=== PATIENT | male | born 1935 | race Caucasian/White ===

== ENCOUNTER 2019-05-22 05:53 | Inpatient (IN) | payer MEDICARE ==
[~2019-05-22] VITALS: Ht 185.4 cm; Wt 90.8 kg
[2019-05-22] MEDS ORDERED: MULT-238 PO (07:07)
[2019-05-22] MEDS ORDERED: RISP0.5T24 PO (07:07)
[2019-05-22] MEDS ORDERED: ACET325T9 PO (07:07)
[2019-05-22] MEDS ORDERED: INSU100V31 SQ (07:07)
[2019-05-22] MEDS ORDERED: TRAZ-120 PO (07:07)
[2019-05-22] MEDS ORDERED: LEVO25TA4 PO (07:07)
[2019-05-22] MEDS ORDERED: OXYM30MI NS (07:07)
[2019-05-22] MEDS ORDERED: ESCITALOPRAM OX10 MG PO (07:07)
[2019-05-22] MEDS ORDERED: CARB-110 PO (07:07)
[2019-05-22] MEDS ORDERED: FURO-68 PO (07:07)
[2019-05-22] MEDS ORDERED: POTA20TA83 PO (07:07)
[2019-05-22] MEDS ORDERED: FAMO-63 PO (07:07)
[2019-05-22] MEDS ORDERED: THIA100T57 PO (07:07)
[2019-05-22] MEDS ORDERED: GABA-586 PO (07:07)
[2019-05-22] MEDS ORDERED: MEDR150D3 IM (07:08)
[2019-05-22] MEDS ORDERED: INSU100I13 SQ ×2 (07:08→12:30)
[2019-05-22] MEDS ORDERED: DONE5TAB56 PO (07:08)
[2019-05-22] MEDS ORDERED: OXYM15MI4 NS (07:08)
[2019-05-22] MEDS ORDERED: DIVA250T PO (07:08)
[2019-05-22] MEDS ORDERED: MAG HYDROX/AL HYDROX/SIMETH 30 ML ORAL.SUSP PO PRN (11:15)
[2019-05-22] MEDS ORDERED: MAGNESIUM HYDROXIDE 2,400 MG/30 ML ORAL.SUSP. PO PRN (11:15)
[2019-05-22] MEDS ORDERED: METHYL SALICYLATE/MENTHOL TOPICAL OINTMENT 57GM TUBE. TP PRN (11:15)
[2019-05-22 11:27] VITALS: BP 135/77
[2019-05-22 11:37] LABS: BASO # 0.1 x10^3/uL (0.0-0.2); BASO % 1 % (0-3); EOS # 0.1 x10^3/uL (0.0-0.7); EOS % 2 % (0-3); HEMATOCRIT 22.4 % (39.0-53.0); HEMOGLOBIN 7.5 g/dL (13.0-17.5); LYMPH # 1.1 x10^3/uL (1.0-4.8); LYMPH % 19 % (24-48); MEAN CORPUSCULAR HEMOGLOBIN 35 pg (25-35); MEAN CORPUSCULAR HGB CONC 34 g/dL (31-37); MEAN CORPUSCULAR VOLUME 105 fL (79-100); MONO # 0.6 x10^3/uL (0.0-1.1); MONO % 10 % (0-9); NEUT % 69 % (31-73); PLATELET COUNT 270 x10^3/uL (140-400); RED BLOOD COUNT 2.14 x10^6/uL (4.30-5.70); RED CELL DISTRIBUTION WIDTH 13.9 % (11.5-14.5); WHITE BLOOD COUNT 5.9 x10^3/uL (4.0-11.0)
[2019-05-22 11:53] LABS: ALBUMIN 2.8 g/dL (3.4-5.0); ALBUMIN/GLOBULIN RATIO 0.8 (1.0-1.7); ALK PHOS 69 U/L (46-116); ALT (SGPT) 10 U/L (16-63); ANION GAP 10 (6-14); AST (SGOT) 12 U/L (15-37); BLOOD UREA NITROGEN 29 mg/dL (8-26); BUN/CREATININE RATIO 21 (6-20); CALCIUM 9.1 mg/dL (8.5-10.1); CARBON DIOXIDE 23 mmol/L (21-32); CHLORIDE 106 mmol/L (98-107); CREATININE 1.4 mg/dL (0.7-1.3); GFR 48.4; GLUCOSE 230 mg/dL (70-99); MAGNESIUM 1.9 mg/dL (1.8-2.4); POTASSIUM 4.7 mmol/L (3.5-5.1); SODIUM 139 mmol/L (136-145); TOTAL BILIRUBIN 0.2 mg/dL (0.2-1.0); TOTAL PROTEIN 6.2 g/dL (6.4-8.2)
[2019-05-22 11:54] LABS: VAL ACID 25 mcg/mL (50-100)
[2019-05-22] MEDS ORDERED: ACETAMINOPHEN 325 MG TABLET PO PRN (12:15)
[2019-05-22] MEDS ORDERED: OXYMETAZOLINE 0.05% NASAL SPRAY 30ML BOTTLE. NS PRN ×2 (12:30→12:45)
[2019-05-22] MEDS ORDERED: DIVA250T4 PO (12:30)
[2019-05-22] MEDS: CARBIDOPA/LEVODOPA 25/250MG TABLET PO SCH ×3 (13:40→19:56)
[2019-05-22] MEDS: DIVALPROEX SODIUM 250 MG TABLET.DR. PO SCH ×2 (13:40→19:56)
[2019-05-22] MEDS: GABAPENTIN 300 MG CAPSULE. PO SCH ×2 (13:40→19:56)
[2019-05-22] MEDS ORDERED: OXYMETAZOLINE HCL NS SCH (14:00)
[2019-05-22] MEDS ORDERED: DIVALPROEX SODIUM 250 MG TABLET.DR. PO SCH (14:00)
[2019-05-22] MEDS ORDERED: INSULIN GLARGINE HUM REC ANLOG 25 UNIT SQ SCH ×2 (16:30→21:00)
[2019-05-22] MEDS ORDERED: NON FORMULARY ITEM (Insulin Aspart (Novolog) 10 UNIT) SQ SCH (16:30)
[2019-05-22 16:41] VITALS: BP 136/74
[2019-05-22 17:13] LABS: THYROID STIM HORMONE (TSH) 2.591 uIU/mL (0.358-3.740)
[2019-05-22] MEDS: INSULIN LISPRO 300 UNITS/3 ML VIAL. SQ SCH (17:31)
[2019-05-22] MEDS: traZODone 50 MG TABLET. PO SCH (19:55)
[2019-05-22] MEDS: risperiDONE 0.25 MG TABLET. PO SCH (19:55)
[2019-05-22] MEDS: POTASSIUM CHLORIDE 20 MEQ TABLET.ER. PO SCH (19:56)
[2019-05-22] MEDS: INSULIN GLARGINE SYRINGE. SQ SCH (19:58)
--- NOTE | 2019-05-22 21:48 | PDOC ---
Exam Note: Kirby Note: Please also refer to the separate dictated note~for this date of service dictated separately. Discussed the patient with Nursing staff reviewed the chart.~Reviewed interim history and current functioning. Reviewed vital signs,~Labs/ Radiology~and current medications noted below. Continue current treatment with the changes noted in the dictated addendum note Assessment: Vital Signs/I&O: Vital Signs Date Time Temp Pulse Resp B/P (MAP) Pulse Ox O2 Delivery O2 Flow Rate FiO2 05/22/19 16:41 97.8 82 16 136/74 (94) 97 05/22/19 11:27 Room Air Labs: Laboratory Tests Test 05/22/19 11:28 05/22/19 12:07 05/22/19 19:07 White Blood Count 5.9 x10^3/uL (4.0-11.0) Red Blood Count 2.14 x10^6/uL (4.30-5.70) L Hemoglobin 7.5 g/dL (13.0-17.5) L Hematocrit 22.4 % (39.0-53.0) L Mean Corpuscular Volume 105 fL (79-100) H Mean Corpuscular Hemoglobin 35 pg (25-35) Mean Corpuscular Hemoglobin Concent 34 g/dL (31-37) Red Cell Distribution Width 13.9 % (11.5-14.5) Platelet Count 270 x10^3/uL (140-400) Neutrophils (%) (Auto) 69 % (31-73) Lymphocytes (%) (Auto) 19 % (24-48) L Monocytes (%) (Auto) 10 % (0-9) H Eosinophils (%) (Auto) 2 % (0-3) Basophils (%) (Auto) 1 % (0-3) Neutrophils # (Auto) 4.0 x10^3uL (1.8-7.7) Lymphocytes # (Auto) 1.1 x10^3/uL (1.0-4.8) Monocytes # (Auto) 0.6 x10^3/uL (0.0-1.1) Eosinophils # (Auto) 0.1 x10^3/uL (0.0-0.7) Basophils # (Auto) 0.1 x10^3/uL (0.0-0.2) Sodium Level 139 mmol/L (136-145) Potassium Level 4.7 mmol/L (3.5-5.1) Chloride Level 106 mmol/L (98-107) Carbon Dioxide Level 23 mmol/L (21-32) Anion Gap 10 (6-14) Blood Urea Nitrogen 29 mg/dL (8-26) H Creatinine 1.4 mg/dL (0.7-1.3) H Estimated GFR (Cockcroft-Gault) 48.4 BUN/Creatinine Ratio 21 (6-20) H Glucose Level 230 mg/dL (70-99) H Calcium Level 9.1 mg/dL (8.5-10.1) Magnesium Level 1.9 mg/dL (1.8-2.4) Iron Level 81 ug/dL (65-175) Total Iron Binding Capacity 254 ug/dL (250-450) Iron Saturation 32 % (15-34) Total Bilirubin 0.2 mg/dL (0.2-1.0) Aspartate Amino Transferase (AST) 12 U/L (15-37) L Alanine Aminotransferase (ALT) 10 U/L (16-63) L Alkaline Phosphatase 69 U/L (46-116) Total Protein 6.2 g/dL (6.4-8.2) L Albumin 2.8 g/dL (3.4-5.0) L Albumin/Globulin Ratio 0.8 (1.0-1.7) L Triglycerides Level 166 mg/dL (0-150) H Cholesterol Level 213 mg/dL (0-200) H LDL Cholesterol, Calculated 145 mg/dL (0-100) H VLDL Cholesterol, Calculated 33 mg/dL (0-40) Non-HDL Cholesterol Calculated 178 mg/dL (0-129) H HDL Cholesterol 35 mg/dL (40-60) L Cholesterol/HDL Ratio 6.0 Vitamin B12 Level 960 pg/mL (247-911) H 25-Hydroxy Vitamin D Total 41.2 ng/mL (30-100) Thyroid Stimulating Hormone (TSH) 2.591 uIU/mL (0.358-3.740) Valproic Acid Level 25 mcg/mL (50-100) L Valproic Acid Last Dose Date 05/22/19 Valproic Acid Last Dose Time 0900 Treponema pallidum Antibody Nonreactive (Nonreactive) Glucose (Fingerstick) 202 mg/dL (70-99) H 205 mg/dL (70-99) H Current Medications: Meds: Current Medications Medications (Trade) Dose Ordered Sig/Miriam Route PRN Reason Start Time Stop Time Status Last Admin Dose Admin Carbidopa/Levodopa (Sinemet 25/250) 1 tab QID PO 05/22/19 13:00 05/22/19 19:56 Divalproex Sodium (Depakote) 250 mg TID PO 05/22/19 14:00 05/22/19 19:56 Gabapentin (Neurontin) 300 mg TID PO 05/22/19 14:00 05/22/19 19:56 Risperidone (RisperDAL) 0.25 mg BID PO 05/22/19 21:00 05/22/19 19:55 Trazodone HCl (Desyrel) 25 mg HS PO 05/22/19 21:00 05/22/19 19:55 Potassium Chloride (Klor-Con) 20 meq BID PO 05/22/19 21:00 05/22/19 19:56 Insulin Glargine (Lantus Syringe) 25 unit BID SQ 05/22/19 21:00 05/22/19 19:58 Insulin Human Lispro (HumaLOG) 10 units TIDWMEALS SQ 05/22/19 17:00 05/22/19 17:31 I have reviewed the current psychotropics carefully including drug interactions. Risk benefit ratio favors no change other than as noted in my dictated progress note. Diagnosis: Problems: (1) Major neurocognitive disorder due to Alzheimer's disease, probable, with behavioral disturbance (2) Anxiety disorder (3) Dementia in Alzheimer's disease with delusions (4) Dementia in Alzheimer's disease with depression (5) Dementia, vascular, with delusions (6) Dementia, vascular, with depression (7) Impulse control disorder CHRISTIAN ELLIOTT MD May 22, 2019 21:48
[2019-05-23 00:06] LABS: THYROXINE 5.7 ug/dL (4.5-12.0)
[2019-05-23 01:07] LABS: HEMOGLOBIN A1C 7.4 % (4.8-5.6)
[2019-05-23 05:05] VITALS: BP 146/76
[2019-05-23] MEDS: LEVOTHYROXINE 25 MCG TABLET. PO SCH (05:15)
--- NOTE | 2019-05-23 06:42 | EKG ---
[address] [address] Test Date: 2019-05-22 Test Time: 04:40:24 Pat Name: MELISSA HOOPER Department: Room: [address] [place] [address] Gender: M School Nurse: : 1935 Requested By: CHRISTIAN ELLIOTT Order Number: [id number] Reading MD: Measurements Intervals [place] Rate: P: NC: QRS: QRSD: T: QT: QTc: Interpretive Statements
[2019-05-23 07:27] LABS: HEMATOCRIT 22.9 % (39.0-53.0); HEMOGLOBIN 7.7 g/dL (13.0-17.5)
[2019-05-23] MEDS ORDERED: LEVOTHYROXINE 25 MCG TABLET. PO SCH (07:30)
[2019-05-23] MEDS: INSULIN LISPRO 300 UNITS/3 ML VIAL. SQ SCH ×3 (08:00→17:32)
[2019-05-23] MEDS: MULTIVITAMIN with MINERAL TABLET. PO SCH (08:01)
[2019-05-23] MEDS: FUROSEMIDE 40 MG TABLET PO SCH (08:01)
[2019-05-23] MEDS: CARBIDOPA/LEVODOPA 25/250MG TABLET PO SCH ×4 (08:01→20:34)
[2019-05-23] MEDS: GABAPENTIN 300 MG CAPSULE. PO SCH ×3 (08:01→20:33)
[2019-05-23] MEDS: CITALOPRAM 20 MG TABLET. PO SCH (08:01)
[2019-05-23] MEDS: FAMOTIDINE 20 MG TABLET PO SCH (08:01)
[2019-05-23] MEDS: THIAMINE 100 MG TABLET. PO SCH (08:01)
[2019-05-23] MEDS: DIVALPROEX SODIUM 250 MG TABLET.DR. PO SCH ×3 (08:02→20:33)
[2019-05-23] MEDS: POTASSIUM CHLORIDE 20 MEQ TABLET.ER. PO SCH ×2 (08:02→20:34)
[2019-05-23] MEDS: risperiDONE 0.25 MG TABLET. PO SCH ×2 (08:02→20:33)
[2019-05-23] MEDS: DONEPEZIL HCL 5 MG TABLET. PO SCH (08:02)
[2019-05-23] MEDS ORDERED: NON FORMULARY ITEM (Escitalopram Oxalate 10 MG) PO SCH (09:00)
[2019-05-23] MEDS: INSULIN GLARGINE SYRINGE. SQ SCH ×2 (09:00→21:10)
[2019-05-23 15:50] VITALS: BP 133/77
--- NOTE | 2019-05-23 18:49 | HP ---
ADMIT DATE: 05/22/2019 PSYCHIATRIC ADMISSION HISTORY/EVALUATION This late entry 05/22/2019 covers elements not covered in my initial note. IDENTIFYING DATA: The patient is an 83-year-old male referred to us from [facility] by his primary care physician, Dr. Donnell Chandra on account of worsening confusion, being combative towards the assisted living staff, increased aggression towards peers. He smacked the beacon out of peer's hand, agitated, restless, grabbing female staff inappropriately. Behaviors have been unmanageable, disruptive and failed psychiatric interventions at the facility and he has appeared more confused, resulting in this referral for inpatient stabilization. CHIEF COMPLAINT: "I don't know." The patient answered after I asked him when he was admitted, even though I knew he was admitted earlier in the day. He appears quite confused. HISTORY OF PRESENT ILLNESS: The patient has been residing at the above facility for some time. Recently, he has been increasingly combative towards staff with increased aggression towards peers. He smacked beacon out of a peer's hand, agitated, restless, grabbing female staff inappropriately. He has had sleep and appetite changes and a prior inpatient psychiatric hospitalization at [facility] and has had tele-psychiatrist visits which have been scheduled for him as well. The patient has failed all of this and a prior inpatient psychiatric hospitalization at [place] in 2017. He has been seeing the nurse practitioner as well for psychotropic medication management. Behaviors have been worsening for about 2 weeks and referred for inpatient psychiatric stabilization. PAST PSYCHIATRIC HISTORY: As above. MEDICAL HISTORY: Positive for hypertension, past history of alcohol abuse, type 2 diabetes mellitus, history of prostatic cancer, history of acute pancreatitis, hypothyroidism, Parkinson's disease. Accu-Cheks before meals and at bedtime. ALLERGIES: ATORVASTATIN, ROSUVASTATIN. DIET: Regular, diabetic, takes medications whole. Ambulates up ad lloyd. UA 05/21/2019, negative at facility. CODE STATUS: Full code, but DPOA wants it changed to DNR. We will defer to Dr. Coley. CURRENT PSYCHOTROPICS: Trazodone 25 mg at bedtime, Lexapro 10 mg a day, Neurontin 300 mg t.i.d. p.r.n., Risperdal 0.25 mg twice a day, Sinemet 250/25 q.i.d. for Parkinson's disease, Aricept 5 mg a day, Depo-Provera 150 mg per mL 1 mL every 2 weeks, next due 06/05/2019; Jadyn JARRELL 250 mg t.i.d., level awaited. FAMILY HISTORY: Noncontributory. SOCIAL HISTORY: Past history of alcohol abuse and history of pancreatitis associated with this. REACTION TO HOSPITALIZATION: The patient is somewhat oblivious to this. ASSETS: Supportive family and placement at the above facility. REVIEW OF SYSTEMS: No CV, , pulmonary, eye system symptoms on review. MENTAL STATUS EXAMINATION: The patient was seen individually evening of 05/22/2019. He is oriented to himself. Insight, judgment, recent and remote memory, attention, concentration, fund of knowledge poor, consistent with his diagnosis. IMPRESSION: Major neurocognitive disorder, multifactorial secondary to Alzheimer's vascular, possibly alcohol with delusion, depression, behavioral disturbance; anxiety disorder, unspecified; impulse control disorder, unspecified. Rest as above. PLAN: Admit to Geropsychiatry Unit at [facility]. I will see the patient daily individually from a psychiatric standpoint. Medical followup by Dr. Coley. Continue the patient on his current psychotropics. Get past psychiatric records. Adjust as clinically indicated after we get the next valproic acid level. Estimated length of stay 10-12 days. Return back to skilled nursing when stable. MAN Jorge Luis ELLIOTT MD DR: DALTON/skip JOB#: [id number] / [id number]
[2019-05-23] MEDS: traZODone 50 MG TABLET. PO SCH (20:34)
--- NOTE | 2019-05-23 21:35 | PDOC ---
Exam Note: Kirby Note: Please also refer to the separate dictated note~for this date of service dictated separately.~Patient seen individually. Discussed the patient with Nursing staff reviewed the chart.~Reviewed interim history and current functioning. Reviewed vital signs,~Labs/ Radiology~and current medications noted below. Continue current treatment with the changes noted in the dictated addendum note Assessment: Vital Signs/I&O: Vital Signs Date Time Temp Pulse Resp B/P (MAP) Pulse Ox O2 Delivery O2 Flow Rate FiO2 05/23/19 15:50 98.1 80 16 133/77 (95) 96 05/23/19 05:05 Room Air I & O 05/22/19 05/22/19 05/23/19 15:00 23:00 07:00 Intake Total 240 ml 480 ml 120 ml Balance 240 ml 480 ml 120 ml Labs: Laboratory Tests Test 05/23/19 07:01 05/23/19 08:06 05/23/19 11:58 05/23/19 16:57 Hemoglobin 7.7 g/dL (13.0-17.5) L Hematocrit 22.9 % (39.0-53.0) L Glucose (Fingerstick) 112 mg/dL (70-99) H 177 mg/dL (70-99) H 184 mg/dL (70-99) H Test 05/23/19 19:18 Glucose (Fingerstick) 239 mg/dL (70-99) H Current Medications: Meds: Current Medications Medications (Trade) Dose Ordered Sig/Miriam Route PRN Reason Start Time Stop Time Status Last Admin Dose Admin Donepezil HCl (Aricept) 5 mg DAILY PO 05/23/19 09:00 05/23/19 08:02 Famotidine (Pepcid) 20 mg DAILY PO 05/23/19 09:00 05/23/19 08:01 Furosemide (Lasix) 40 mg DAILY PO 05/23/19 09:00 05/23/19 08:01 Multivitamins/ Calcium (Thera-M Plus) 1 tab DAILY PO 05/23/19 09:00 05/23/19 08:01 Thiamine HCl (Vitamin B-1) 100 mg DAILY PO 05/23/19 09:00 05/23/19 08:01 Citalopram Hydrobromide (CeleXA) 20 mg DAILY PO 05/23/19 09:00 05/23/19 08:01 Levothyroxine Sodium (Synthroid) 25 mcg DAILY06 PO 05/23/19 06:00 05/23/19 05:15 Divalproex Sodium (Depakote) 500 mg QHS PO 05/23/19 21:00 05/23/19 20:33 I have reviewed the current psychotropics carefully including drug interactions. Risk benefit ratio favors no change other than as noted in my dictated progress note. Diagnosis: Problems: (1) Major neurocognitive disorder due to Alzheimer's disease, probable, with behavioral disturbance (2) Anxiety disorder (3) Dementia in Alzheimer's disease with delusions (4) Dementia in Alzheimer's disease with depression (5) Dementia, vascular, with delusions (6) Dementia, vascular, with depression (7) Impulse control disorder CHRISTIAN ELLIOTT MD May 23, 2019 21:35
[2019-05-24] MEDS: LEVOTHYROXINE 25 MCG TABLET. PO SCH (06:00)
[2019-05-24] MEDS: INSULIN LISPRO 300 UNITS/3 ML VIAL. SQ SCH ×3 (08:00→17:23)
[2019-05-24] MEDS: risperiDONE 0.25 MG TABLET. PO SCH ×2 (09:00→20:13)
[2019-05-24] MEDS: FAMOTIDINE 20 MG TABLET PO SCH (09:00)
[2019-05-24] MEDS: FUROSEMIDE 40 MG TABLET PO SCH (09:00)
[2019-05-24] MEDS: MULTIVITAMIN with MINERAL TABLET. PO SCH (09:00)
[2019-05-24] MEDS: CARBIDOPA/LEVODOPA 25/250MG TABLET PO SCH ×4 (09:00→20:14)
[2019-05-24] MEDS: POTASSIUM CHLORIDE 20 MEQ TABLET.ER. PO SCH ×2 (09:00→20:14)
[2019-05-24] MEDS: DONEPEZIL HCL 5 MG TABLET. PO SCH (09:00)
[2019-05-24] MEDS: THIAMINE 100 MG TABLET. PO SCH (09:00)
[2019-05-24] MEDS: INSULIN GLARGINE SYRINGE. SQ SCH ×2 (09:00→20:15)
[2019-05-24] MEDS: GABAPENTIN 300 MG CAPSULE. PO SCH ×3 (09:00→20:13)
[2019-05-24] MEDS: CITALOPRAM 20 MG TABLET. PO SCH (09:00)
[2019-05-24] MEDS: DIVALPROEX SODIUM 250 MG TABLET.DR. PO SCH ×3 (09:00→20:13)
--- NOTE | 2019-05-24 09:05 | PN ---
DATE: 05/23/2019 PSYCHIATRIC PROGRESS NOTE This late entry May 22 covers elements not covered in my initial note. SUBJECTIVE: I met with the patient in the evening. Per nursing report, the patient slept 5-1/4 hours previous night. He remains confused. Reviewed his history. He has never been , has no children. Hemoglobin 7.1. Valproic acid level subtherapeutic at 25 on Depakote ER 250 t.i.d. REVIEW OF SYSTEMS: No CV, , pulmonary, eye system symptoms on review. MENTAL STATUS EXAM: Oriented to himself, at times situation. Speech moderate latency. Abstraction fair. Computation impaired. Language function intact. Mood and affect withdrawn. LABORATORY DATA: Reviewed. IMPRESSION: Major neurocognitive disorder, early Alzheimer's, vascular with delusion, depression, behavioral disturbance, rule out major neurocognitive disorder, Lewy body with delusion, behavioral disturbance; anxiety disorder, unspecified. Rest unchanged. PLAN: Increase Depakote ER to 250 twice a day, 500 at bedtime. Check CBC, CMP, valproic acid level in 3 days. Rest unchanged for now. MAN Jorge Luis ELLIOTT MD DR: DALTON/skip JOB#: [id number] / [id number]
--- NOTE | 2019-05-24 09:09 | CONS ---
DATE OF CONSULTATION: REASON FOR CONSULTATION: Medical management. HISTORY OF PRESENT ILLNESS: The patient at an 83-year-old male patient, a resident at [facility], who was admitted on account of being combative towards staff, increased aggression towards peers, snack taken out of peers' hands, agitated, restless, grabbing female staff inappropriately, all this in a background of major neurocognitive disorder, vascular Alzheimer with delusion, depression; anxiety disorder, unspecified; with impulse control disorder. Medically, the patient is known to have hypertension, alcohol abuse, type 2 diabetes, prostate cancer, history of acute pancreatitis, hypothyroidism and Parkinson's disease. PAST PSYCHIATRIC HISTORY: Significant for panic disorder; anxiety, unspecified; dementia, behavioral disorder and depression. PAST SURGICAL HISTORY: Unobtainable. SOCIAL HISTORY: He claims that he has never , has no children. Does not smoke, but drinks alcohol. ALLERGIES: HE IS ALLERGIC TO ATORVASTATIN AND ROSUVASTATIN CALCIUM. FAMILY HISTORY: Unobtainable. MEDICATIONS: He is currently on following medications: Aricept 5 mg daily, acetaminophen 650 mg every 6 hours, divalproex sodium 250 mg 3 times a day, gabapentin 300 mg 3 times a day, escitalopram oxalate 10 mg daily, trazodone 25 mg at bedtime, risperidone 0.25 mg twice a day, carbidopa/levodopa 25/250 one tablet 4 times a day, potassium chloride 20 mEq twice a day, furosemide 40 mg daily, oxymetazoline ____ 3 times a day, famotidine 20 mg daily, NovoLog 10 units subcutaneous 3 times a day, Lantus SoloSTAR 25 units subcutaneously twice a day, medroxyprogesterone acetate 150 mg intramuscular once every 2 weeks, levothyroxine sodium 25 mcg once a day, thiamine 100 mg once a day, multivitamin with mineral 1 tablet once a day. PHYSICAL EXAMINATION: GENERAL: When I examined him, he was sitting comfortably in his chair, in no apparent respiratory distress. He was somewhat pale, but no jaundice, cyanosis or thyromegaly. No jugular venous distention. No lower limb edema. VITAL SIGNS: His heart rate was 80, blood pressure was 133/77, temperature 98.1, respiratory rate was 16 and oxygen saturation was 96%. HEAD, EYES, EARS, NOSE AND THROAT: Showed normocephalic, atraumatic. NECK: Supple. HEART: Showed normal first and second heart sounds. No gallop or murmur. CHEST: Clear to auscultation. No crepitation or rhonchi. ABDOMEN: Distended, soft, nontender. NEUROLOGIC: He was awake, alert. There is no evidence of obvious lateralizing sign. He has pill rolling tremors in both upper extremities. He moves all extremities without difficulty. He ambulates with a walker. LABORATORY DATA: Showed a white cell count 5900, hemoglobin 7.5, hematocrit 22, MCV 105 and platelet count 270,000. His serum sodium was 139, potassium 4.7, chloride 106, bicarbonate 23, anion gap of 10, BUN 29, creatinine 1.4, estimated GFR was 48 mL per minute, his glucose 230, calcium was 9.1, magnesium was 1.9. Total bilirubin, AST, ALT, alkaline phosphatase were normal. Total protein was 6.2, albumin was 2.8. Serum triglyceride was 166, cholesterol 213, LDL cholesterol 145, HDL was 178 and ratio was 6. TSH was 2.59. His vitamin B12 was 960 picogram, 25-hydroxyvitamin D was high at 41, total T4 and total T3 are both normal. His hemoglobin A1c was 7.4%. Serum iron 81, TIBC was 254, and iron saturation was 32. Toxic screen showed valproic acid to be 25 and treponema pallidum antibody was nonreactive. IMPRESSION: In summary, this is an 83-year-old male patient, a resident at [facility], who was admitted on account of being combative towards staff, increased aggression towards peers, snack taken out of peers' hand, agitated, restless, grabbing female staff inappropriately, all this in a background of major neurocognitive disorder. Medically, he has multiple medical problems including hypertension, type 2 diabetes, hypothyroidism, Parkinson's disease. He has normochromic normocytic anemia with normal hematinics including vitamin B12 and iron stores indicating probably has some form of myelodysplastic syndrome. He has also chronic kidney disease with BUN of 29, creatinine 1.4. However, generally, he is stable. We will obviously monitor his H and H closely and if he drops his hemoglobin 7 or below 7, we will transfuse him. LAURITA CHRISTIAN MD DR: DESTINEY/skip JOB#: [id number] / [id number]
[2019-05-24 13:57] VITALS: BP 122/75
[2019-05-24 16:33] VITALS: BP 130/71
[2019-05-24] MEDS: traZODone 50 MG TABLET. PO SCH (20:13)
--- NOTE | 2019-05-24 21:40 | PN ---
DATE: 05/24/2019 SUBJECTIVE: The patient was seen today, met with the staff, chart reviewed, and covering for Dr. Wheeler. Staff reports that he has been staying in bed most of the time, but compliant with the treatment. Periods of agitation and confusion. Staff also reports no major behavior problems at this time. OBSERVATION: VITAL SIGNS: Temperature 97.4, blood pressure 122/75, pulse 85, respirations 22, O2 sat 99%. GENERAL: Slept about 5 hours last night. The patient's appetite is fair. LABORATORY DATA: The patient's lab reviewed. MEDICATIONS: The patient's current medications include Depo-Provera IM 150 mg q. 2 weeks, Depakote 250 mg b.i.d. and 500 mg at night, Celexa 20 mg daily, Aricept 5 mg daily, trazodone 25 mg at night, Risperdal 0.25 mg b.i.d. The patient is also on Sinemet 4 times a day. The patient is not having any major side effects. ASSESSMENT: Major neurocognitive disorder, multifactorial; also Alzheimer's with delusions and depression; anxiety disorder, generalized; and impulse control disorder, unspecified. PLAN: To continue with the current treatment plan. LENGTH OF STAY: 5 days. PEDRO PABLO REAVES MD DR: THUY/skip JOB#: [id number] / [id number]
[2019-05-25] MEDS: LEVOTHYROXINE 25 MCG TABLET. PO SCH (05:09)
[2019-05-25 05:34] VITALS: BP 131/66
[2019-05-25] MEDS: INSULIN LISPRO 300 UNITS/3 ML VIAL. SQ SCH ×3 (07:38→17:36)
[2019-05-25] MEDS: INSULIN GLARGINE SYRINGE. SQ SCH ×2 (07:40→20:03)
[2019-05-25] MEDS: CITALOPRAM 20 MG TABLET. PO SCH (08:16)
[2019-05-25] MEDS: POTASSIUM CHLORIDE 20 MEQ TABLET.ER. PO SCH ×2 (08:17→20:01)
[2019-05-25] MEDS: DIVALPROEX SODIUM 250 MG TABLET.DR. PO SCH ×3 (08:17→20:01)
[2019-05-25] MEDS: THIAMINE 100 MG TABLET. PO SCH (08:17)
[2019-05-25] MEDS: FAMOTIDINE 20 MG TABLET PO SCH (08:17)
[2019-05-25] MEDS: MULTIVITAMIN with MINERAL TABLET. PO SCH (08:17)
[2019-05-25] MEDS: CARBIDOPA/LEVODOPA 25/250MG TABLET PO SCH ×4 (08:17→20:00)
[2019-05-25] MEDS: DONEPEZIL HCL 5 MG TABLET. PO SCH (08:17)
[2019-05-25] MEDS: FUROSEMIDE 40 MG TABLET PO SCH (08:17)
[2019-05-25] MEDS: GABAPENTIN 300 MG CAPSULE. PO SCH ×3 (08:17→20:00)
[2019-05-25] MEDS: risperiDONE 0.25 MG TABLET. PO SCH ×2 (08:17→20:01)
--- NOTE | 2019-05-25 15:37 | PN ---
DATE: 05/25/2019 SUBJECTIVE: The patient was seen today, met with the staff, chart reviewed and also covering for Dr. Wheeler. The patient has a tendency to stay in bed most of the time, but staff reports no major behavior problems, is pleasant, also confused, disorganized, but medication compliant. OBSERVATION: VITAL SIGNS: Temperature 98.8, blood pressure 131/66, pulse 73, respirations 20, O2 sat 98%. GENERAL: Slept about 8 hours last night. The patient is not presenting with any medical complaints. MEDICATIONS: The patient's current medications include Depo-Provera IM 150 mg every 2 weeks, Depakote 250 mg b.i.d. and 500 mg at night, Celexa 20 mg daily, Aricept 5 mg daily, trazodone 25 mg at night, Risperdal 0.25 mg b.i.d. p.o. The patient also has a diagnosis of Parkinson's, on Sinemet. ASSESSMENT: 1. Major neurocognitive disorder, multifactorial, also Alzheimer's with delusions and depression. 2. Anxiety disorder, generalized. 3. Impulse control disorder, unspecified. PLAN: To continue with the current treatment plan. LENGTH OF STAY: 4-5. PEDRO PABLO REAVES MD DR: THUY/skip JOB#: [id number] / [id number]
[2019-05-25 15:54] VITALS: BP 131/63
[2019-05-25] MEDS: traZODone 50 MG TABLET. PO SCH (20:01)
[2019-05-26] MEDS: LEVOTHYROXINE 25 MCG TABLET. PO SCH (05:04)
[2019-05-26 06:02] VITALS: BP 152/82
[2019-05-26 07:40] LABS: BASO % 1 % (0-3); EOS # 0.2 x10^3/uL (0.0-0.7); EOS % 3 % (0-3); HEMATOCRIT 21.1 % (39.0-53.0); HEMOGLOBIN 7.3 g/dL (13.0-17.5); LYMPH # 1.5 x10^3/uL (1.0-4.8); LYMPH % 28 % (24-48); MEAN CORPUSCULAR HEMOGLOBIN 36 pg (25-35); MEAN CORPUSCULAR HGB CONC 34 g/dL (31-37); MEAN CORPUSCULAR VOLUME 104 fL (79-100); MONO # 0.7 x10^3/uL (0.0-1.1); MONO % 12 % (0-9); NEUT % 56 % (31-73); PLATELET COUNT 256 x10^3/uL (140-400); RED BLOOD COUNT 2.04 x10^6/uL (4.30-5.70); RED CELL DISTRIBUTION WIDTH 14.1 % (11.5-14.5); WHITE BLOOD COUNT 5.4 x10^3/uL (4.0-11.0)
[2019-05-26 07:59] LABS: ALBUMIN 2.7 g/dL (3.4-5.0); ALBUMIN/GLOBULIN RATIO 0.8 (1.0-1.7); CALCIUM 8.9 mg/dL (8.5-10.1); CREATININE 1.1 mg/dL (0.7-1.3); GFR 63.9; POTASSIUM 4.8 mmol/L (3.5-5.1); TOTAL BILIRUBIN 0.2 mg/dL (0.2-1.0); TOTAL PROTEIN 5.9 g/dL (6.4-8.2)
[2019-05-26 08:06] LABS: VAL ACID 44 mcg/mL (50-100)
[2019-05-26] MEDS: POTASSIUM CHLORIDE 20 MEQ TABLET.ER. PO SCH ×2 (08:21→19:50)
[2019-05-26] MEDS: CARBIDOPA/LEVODOPA 25/250MG TABLET PO SCH ×4 (08:21→19:50)
[2019-05-26] MEDS: FAMOTIDINE 20 MG TABLET PO SCH (08:21)
[2019-05-26] MEDS: risperiDONE 0.25 MG TABLET. PO SCH ×2 (08:21→19:50)
[2019-05-26] MEDS: GABAPENTIN 300 MG CAPSULE. PO SCH ×3 (08:22→19:50)
[2019-05-26] MEDS: FUROSEMIDE 40 MG TABLET PO SCH (08:22)
[2019-05-26] MEDS: DONEPEZIL HCL 5 MG TABLET. PO SCH (08:22)
[2019-05-26] MEDS: CITALOPRAM 20 MG TABLET. PO SCH (08:22)
[2019-05-26] MEDS: MULTIVITAMIN with MINERAL TABLET. PO SCH (08:22)
[2019-05-26] MEDS: DIVALPROEX SODIUM 250 MG TABLET.DR. PO SCH ×3 (08:22→19:50)
[2019-05-26] MEDS: THIAMINE 100 MG TABLET. PO SCH (08:22)
[2019-05-26] MEDS: INSULIN LISPRO 300 UNITS/3 ML VIAL. SQ SCH ×3 (08:25→17:37)
[2019-05-26] MEDS: INSULIN GLARGINE SYRINGE. SQ SCH ×2 (08:26→19:53)
--- NOTE | 2019-05-26 13:31 | TX PLAN ---
Interdisciplinary Tx Plan Admission Information May 22, 2019 at 10:50 Legal Status (on Admission): Voluntary, DPOA DPOA/Guardian Name: Zev Pretty, DPOA and Legal Guardian Contact Other Contact Name: [facility] Other Contact Verified Code Status: DNR Allergies: Coded Allergies: atorvastatin (Verified Allergy, Unknown, 05/22/19) rosuvastatin (Verified Allergy, Unknown, 05/22/19) Estimated Length of Stay: 10 Diagnoses Primary Diagnosis: Major Neurocognitive Disorder Vascular Alzheimers with Delusions, Depression BD, Anxiety Disorder Unspecified, Impulse Control Disorder Reasons for Admission: Aggressive, Relation/conflict, Agitated, Combative, Poor impulse control Problem in Patient's Words: When asked if pt. knew why he was here, pt. answered "no". Per pt. DPOA, "He became somewhat aggressive." They kept giving him different medications and thought maybe they were "over medicating" him. He was "aggressive towards staff." Problems Active Problems: Per pt. intake, pt. was combative towards staff, increased aggression towards peers, smacked saldaña from peers hand on day of intake, agitated, restless, and grabs inappropriately at female staff. Inactive Problems: Pt. is compliant with medication and cooperative with cares. Pt Strengths/Limitations Ability for [place]: Poor Cognitive Functioning/Ability: Poor Communication Skills/Ability: Fair Financial Resources: Fair Insight/Judgement: Poor Intellectual Ability: Fair Physical Health: Poor Social Skills: Fair Stability in Family: Poor Verbal Skills: Fair Discharge Criteria Discharge Criteria: Adequate arrangements @DC, Improved behavior, Improved mood/thought Preliminary Discharge Plan Preliminary DC Plan: Current Living Arrange. Special Precautions Special Precautions: Agitation/Assault Fall Risk: Low Initial D/C Plan Pt. will return to [facility]. Identified Discharge Needs: Follow up with PCP Currently Utilized Resources Currently Utilized Resources/P: PCP - Dr. Donnell Card Identified Problems/Hx/Goals Objectives/Short-Term Goals Short Term Goals: Dec. Aggression, Dec. 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 Education: Pt. graduated from high school and reports going to "[employer] [facility] [place]". Pt. was unable to share if he graduated or his major, and pt. BASHIR was unable to verify. Community Follow-up Follow up with PCP. Community Provider/Family Inpu: Pt. BASHIR stated, "I hope he gets better." "I hope he can live at [facility]." Treatment Plan Explained Patient/Template Checker had this treatment plan explained to him/her as indicated by the signature below and has been given the opportunity to ask questions and make suggestions: Date: Patient/Template Checker Signature: Patient/Template Checker Decline: No Additional Comments Pt. BASHIR, Zev, would like to be contacted for treatment team. KINGSLEY KEEN May 26, 2019 13:31
[2019-05-26 16:40] VITALS: BP 138/73
[2019-05-26] MEDS: traZODone 50 MG TABLET. PO SCH (19:51)
[2019-05-26 21:51] LABS: FECAL OB PT POSITIVE (NEG)
--- NOTE | 2019-05-26 21:57 | PDOC ---
Exam Note: Kirby Note: Please also refer to the separate dictated note~for this date of service dictated separately.~Patient seen individually. Discussed the patient with Nursing staff reviewed the chart.~Reviewed interim history and current functioning. Reviewed vital signs,~Labs/ Radiology~and current medications noted below. Continue current treatment with the changes noted in the dictated addendum note Assessment: Vital Signs/I&O: Vital Signs Date Time Temp Pulse Resp B/P (MAP) Pulse Ox O2 Delivery O2 Flow Rate FiO2 05/26/19 16:40 97.9 81 18 138/73 (94) 99 05/25/19 05:34 Room Air I & O 05/25/19 05/25/19 05/26/19 15:00 23:00 07:00 Intake Total 720 ml 240 ml 120 ml Balance 720 ml 240 ml 120 ml Labs: Laboratory Tests Test 05/26/19 07:19 05/26/19 07:42 05/26/19 11:49 05/26/19 17:16 White Blood Count 5.4 x10^3/uL (4.0-11.0) Red Blood Count 2.04 x10^6/uL (4.30-5.70) L Hemoglobin 7.3 g/dL (13.0-17.5) L Hematocrit 21.1 % (39.0-53.0) L Mean Corpuscular Volume 104 fL (79-100) H Mean Corpuscular Hemoglobin 36 pg (25-35) H Mean Corpuscular Hemoglobin Concent 34 g/dL (31-37) Red Cell Distribution Width 14.1 % (11.5-14.5) Platelet Count 256 x10^3/uL (140-400) Neutrophils (%) (Auto) 56 % (31-73) Lymphocytes (%) (Auto) 28 % (24-48) Monocytes (%) (Auto) 12 % (0-9) H Eosinophils (%) (Auto) 3 % (0-3) Basophils (%) (Auto) 1 % (0-3) Neutrophils # (Auto) 3.0 x10^3uL (1.8-7.7) Lymphocytes # (Auto) 1.5 x10^3/uL (1.0-4.8) Monocytes # (Auto) 0.7 x10^3/uL (0.0-1.1) Eosinophils # (Auto) 0.2 x10^3/uL (0.0-0.7) Basophils # (Auto) 0.0 x10^3/uL (0.0-0.2) Sodium Level 139 mmol/L (136-145) Potassium Level 4.8 mmol/L (3.5-5.1) Chloride Level 106 mmol/L (98-107) Carbon Dioxide Level 24 mmol/L (21-32) Anion Gap 9 (6-14) Blood Urea Nitrogen 38 mg/dL (8-26) H Creatinine 1.1 mg/dL (0.7-1.3) Estimated GFR (Cockcroft-Gault) 63.9 BUN/Creatinine Ratio 35 (6-20) H Glucose Level 116 mg/dL (70-99) H Calcium Level 8.9 mg/dL (8.5-10.1) Total Bilirubin 0.2 mg/dL (0.2-1.0) Aspartate Amino Transferase (AST) 11 U/L (15-37) L Alanine Aminotransferase (ALT) 12 U/L (16-63) L Alkaline Phosphatase 67 U/L (46-116) Total Protein 5.9 g/dL (6.4-8.2) L Albumin 2.7 g/dL (3.4-5.0) L Albumin/Globulin Ratio 0.8 (1.0-1.7) L Valproic Acid Level 44 mcg/mL (50-100) L Valproic Acid Last Dose Date 05/25/19 Valproic Acid Last Dose Time 2100 Glucose (Fingerstick) 112 mg/dL (70-99) H 123 mg/dL (70-99) H 132 mg/dL (70-99) H Test 05/26/19 19:47 05/26/19 21:20 Glucose (Fingerstick) 222 mg/dL (70-99) H Stool Occult Blood Positive (NEG) Current Medications: I have reviewed the current psychotropics carefully including drug interactions. Risk benefit ratio favors no change other than as noted in my dictated progress note. 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
[2019-05-27] MEDS: LEVOTHYROXINE 25 MCG TABLET. PO SCH (05:05)
[2019-05-27 06:28] VITALS: BP 136/73
[2019-05-27] MEDS: INSULIN LISPRO 300 UNITS/3 ML VIAL. SQ SCH ×3 (08:00→17:31)
[2019-05-27] MEDS: CITALOPRAM 20 MG TABLET. PO SCH (09:00)
[2019-05-27] MEDS: GABAPENTIN 300 MG CAPSULE. PO SCH ×3 (11:13→20:30)
[2019-05-27] MEDS: MULTIVITAMIN with MINERAL TABLET. PO SCH (11:14)
[2019-05-27] MEDS: FUROSEMIDE 40 MG TABLET PO SCH (11:14)
[2019-05-27] MEDS: DIVALPROEX SODIUM 250 MG TABLET.DR. PO SCH ×3 (11:14→20:31)
[2019-05-27] MEDS: FAMOTIDINE 20 MG TABLET PO SCH (11:14)
[2019-05-27] MEDS: risperiDONE 0.25 MG TABLET. PO SCH ×2 (11:14→20:30)
[2019-05-27] MEDS: CARBIDOPA/LEVODOPA 25/250MG TABLET PO SCH ×4 (11:15→20:30)
[2019-05-27] MEDS: POTASSIUM CHLORIDE 20 MEQ TABLET.ER. PO SCH ×2 (11:15→20:30)
[2019-05-27] MEDS: THIAMINE 100 MG TABLET. PO SCH (11:15)
[2019-05-27] MEDS: DONEPEZIL HCL 5 MG TABLET. PO SCH (11:15)
[2019-05-27] MEDS: INSULIN GLARGINE SYRINGE. SQ SCH ×2 (11:21→20:36)
[2019-05-27 16:07] VITALS: BP 109/62
[2019-05-27] MEDS: FERROUS SULFATE 325 MG TABLET. PO SCH (17:29)
[2019-05-27] MEDS: ASCORBIC ACID 500 MG TABLET PO SCH (20:30)
[2019-05-27] MEDS: traZODone 50 MG TABLET. PO SCH (20:31)
--- NOTE | 2019-05-27 21:49 | PDOC ---
Exam Note: Kirby Note: Please also refer to the separate dictated note~for this date of service dictated separately.~Patient seen individually. Discussed the patient with Nursing staff reviewed the chart.~Reviewed interim history and current functioning. Reviewed vital signs,~Labs/ Radiology~and current medications noted below. Continue current treatment with the changes noted in the dictated addendum note Assessment: Vital Signs/I&O: Vital Signs Date Time Temp Pulse Resp B/P (MAP) Pulse Ox O2 Delivery O2 Flow Rate FiO2 05/27/19 16:07 99.0 84 16 109/62 (78) 98 05/25/19 05:34 Room Air I & O 05/26/19 05/26/19 05/27/19 15:00 23:00 07:00 Intake Total 840 ml 360 ml Balance 840 ml 360 ml Labs: Laboratory Tests Test 05/27/19 07:53 05/27/19 12:16 05/27/19 16:36 05/27/19 19:16 Glucose (Fingerstick) 86 mg/dL (70-99) 112 mg/dL (70-99) H 207 mg/dL (70-99) H 226 mg/dL (70-99) H Current Medications: Meds: Current Medications Medications (Trade) Dose Ordered Sig/Miriam Route PRN Reason Start Time Stop Time Status Last Admin Dose Admin Divalproex Sodium (Depakote) 500 mg DAILY PO 05/27/19 09:00 05/27/19 11:14 Divalproex Sodium (Depakote) 250 mg DAILY@1400 PO 05/27/19 14:00 05/27/19 14:22 Ferrous Sulfate (Feosol) 325 mg BIDWMEALS PO 05/27/19 17:00 05/27/19 17:29 Ascorbic Acid (Vitamin C) 500 mg BID PO 05/27/19 21:00 05/27/19 20:30 I have reviewed the current psychotropics carefully including drug interactions. Risk benefit ratio favors no change other than as noted in my dictated progress note. Diagnosis: Problems: (1) Major neurocognitive disorder due to Alzheimer's disease, probable, with behavioral disturbance (2) Anxiety disorder (3) Dementia in Alzheimer's disease with delusions (4) Dementia in Alzheimer's disease with depression (5) Dementia, vascular, with delusions (6) Dementia, vascular, with depression (7) Impulse control disorder CHRISTIAN ELLIOTT MD May 27, 2019 21:49
[2019-05-28] MEDS: LEVOTHYROXINE 25 MCG TABLET. PO SCH (05:53)
[2019-05-28 05:58] VITALS: BP 124/66
[2019-05-28] MEDS: CITALOPRAM 20 MG TABLET. PO SCH (08:24)
[2019-05-28] MEDS: FAMOTIDINE 20 MG TABLET PO SCH (08:24)
[2019-05-28] MEDS: MULTIVITAMIN with MINERAL TABLET. PO SCH (08:24)
[2019-05-28] MEDS: FERROUS SULFATE 325 MG TABLET. PO SCH ×2 (08:24→17:16)
[2019-05-28] MEDS: DONEPEZIL HCL 5 MG TABLET. PO SCH (08:24)
[2019-05-28] MEDS: GABAPENTIN 300 MG CAPSULE. PO SCH ×3 (08:24→20:13)
[2019-05-28] MEDS: DIVALPROEX SODIUM 250 MG TABLET.DR. PO SCH ×3 (08:24→20:13)
[2019-05-28] MEDS: THIAMINE 100 MG TABLET. PO SCH (08:24)
[2019-05-28] MEDS: ASCORBIC ACID 500 MG TABLET PO SCH ×2 (08:24→20:13)
[2019-05-28] MEDS: FUROSEMIDE 40 MG TABLET PO SCH (08:25)
[2019-05-28] MEDS: POTASSIUM CHLORIDE 20 MEQ TABLET.ER. PO SCH ×2 (08:25→20:13)
[2019-05-28] MEDS: risperiDONE 0.25 MG TABLET. PO SCH ×2 (08:25→20:13)
[2019-05-28] MEDS: CARBIDOPA/LEVODOPA 25/250MG TABLET PO SCH ×4 (08:25→20:13)
[2019-05-28] MEDS: INSULIN LISPRO 300 UNITS/3 ML VIAL. SQ SCH ×3 (08:27→17:26)
[2019-05-28] MEDS: INSULIN GLARGINE SYRINGE. SQ SCH ×2 (09:31→20:12)
--- NOTE | 2019-05-28 09:48 | PN ---
DATE: 05/26/2019 PSYCHIATRIC PROGRESS NOTE This late entry 05/26/2019 covers the elements not covered in my initial note. SUBJECTIVE: I met with the patient evening of 05/26/2019. Per nursing report, the patient remains confused, anxious, restless, not aggressive. Hemoglobin is low. Stool is being checked for occult blood. We will defer to Dr. Coley. Valproic acid level subtherapeutic at 44, on Depakote 250 mg twice a day, 500 mg at bedtime. REVIEW OF SYSTEMS: No CV, , pulmonary, eye, ENT system symptoms on review. Reliability poor. MENTAL STATUS EXAM: Oriented to himself, at times situation. Speech moderate latency, often responses monosyllabic. Abstraction fair, computation impaired, language function intact, attention span short. Mood and affect withdrawn. LABORATORY DATA: Reviewed. IMPRESSION: Major neurocognitive disorder, early Alzheimer, vascular with delusion, depression; anxiety disorder, unspecified; impulse control disorder, unspecified. PLAN: Increase Depakote to 500 mg b.i.d. to 50 mg at noon. Check CBC, CMP, valproic acid level in 3 days. Rest unchanged for now. MAN Jorge Luis ELLIOTT MD DR: DALTON/skip JOB#: [id number] / [id number]
[2019-05-28 16:39] VITALS: BP 163/67
--- NOTE | 2019-05-28 19:57 | PN ---
DATE: 05/27/2019 PSYCHIATRIC PROGRESS NOTE This late entry 05/27/2019 covers elements not covered in my initial note. SUBJECTIVE: I met with the patient evening of 05/27/2019. Per AURY Casas, the patient slept 3-1/4 hours previous night. He slept through breakfast, somewhat drowsy during the day, confused. REVIEW OF SYSTEMS: No CV, , pulmonary, eye system symptoms on review. MENTAL STATUS EXAM: Oriented to himself. Insight, judgment, recent memory is impaired, remote is better. Language function intact. Attention span short. Mood is depressed, anxious. Affect is mood congruent. No sexually inappropriate behaviors. No suicidal or homicidal ideation. LABORATORY DATA: Reviewed. IMPRESSION: Unchanged from initial note. PLAN: No change from initial note. Continue psychotropics from initial note. Adjust Depakote to reach therapeutic level post next set of labs. MAN Jorge Luis ELLIOTT MD DR: DALTON/skip JOB#: [id number] / [id number]
[2019-05-28] MEDS: traZODone 50 MG TABLET. PO SCH (20:13)
--- NOTE | 2019-05-28 22:08 | PDOC ---
Exam Note: Kirby Note: Please also refer to the separate dictated note~for this date of service dictated separately.~Patient seen individually. Discussed the patient with Nursing staff reviewed the chart.~Reviewed interim history and current functioning. Reviewed vital signs,~Labs/ Radiology~and current medications noted below. Continue current treatment with the changes noted in the dictated addendum note Assessment: Vital Signs/I&O: Vital Signs Date Time Temp Pulse Resp B/P (MAP) Pulse Ox O2 Delivery O2 Flow Rate FiO2 05/28/19 16:39 98.4 89 18 163/67 (99) 98 05/25/19 05:34 Room Air I & O 05/27/19 05/27/19 05/28/19 15:00 23:00 07:00 Intake Total 480 ml 360 ml Balance 480 ml 360 ml Labs: Laboratory Tests Test 05/28/19 08:04 05/28/19 11:41 05/28/19 16:36 05/28/19 19:07 Glucose (Fingerstick) 111 mg/dL (70-99) H 197 mg/dL (70-99) H 151 mg/dL (70-99) H 167 mg/dL (70-99) H Current Medications: I have reviewed the current psychotropics carefully including drug interactions. Risk benefit ratio favors no change other than as noted in my dictated progress note. Diagnosis: Problems: (1) Major neurocognitive disorder due to Alzheimer's disease, probable, with behavioral disturbance (2) Anxiety disorder (3) Dementia in Alzheimer's disease with delusions (4) Dementia in Alzheimer's disease with depression (5) Dementia, vascular, with delusions (6) Dementia, vascular, with depression (7) Impulse control disorder CHRISTIAN ELLIOTT MD May 28, 2019 22:08
[2019-05-29] MEDS: LEVOTHYROXINE 25 MCG TABLET. PO SCH (05:33)
[2019-05-29 05:55] VITALS: BP 131/73
[2019-05-29 06:57] LABS: BASO % 1 % (0-3); EOS # 0.1 x10^3/uL (0.0-0.7); EOS % 3 % (0-3); LYMPH # 1.6 x10^3/uL (1.0-4.8); LYMPH % 32 % (24-48); MEAN CORPUSCULAR HEMOGLOBIN 35 pg (25-35); MEAN CORPUSCULAR HGB CONC 34 g/dL (31-37); MEAN CORPUSCULAR VOLUME 104 fL (79-100); MONO # 0.7 x10^3/uL (0.0-1.1); MONO % 15 % (0-9); NEUT # 2.5 x10^3uL (1.8-7.7); NEUT % 50 % (31-73); PLATELET COUNT 222 x10^3/uL (140-400); RED BLOOD COUNT 1.87 x10^6/uL (4.30-5.70); RED CELL DISTRIBUTION WIDTH 13.9 % (11.5-14.5); WHITE BLOOD COUNT 5.1 x10^3/uL (4.0-11.0)
[2019-05-29 07:11] LABS: ALBUMIN 2.6 g/dL (3.4-5.0); ALBUMIN/GLOBULIN RATIO 0.9 (1.0-1.7); ALK PHOS 59 U/L (46-116); ALT (SGPT) 11 U/L (16-63); ANION GAP 9 (6-14); AST (SGOT) 9 U/L (15-37); BLOOD UREA NITROGEN 40 mg/dL (8-26); BUN/CREATININE RATIO 36 (6-20); CALCIUM 8.8 mg/dL (8.5-10.1); CARBON DIOXIDE 24 mmol/L (21-32); CHLORIDE 110 mmol/L (98-107); CREATININE 1.1 mg/dL (0.7-1.3); GFR 63.9; GLUCOSE 76 mg/dL (70-99); POTASSIUM 4.5 mmol/L (3.5-5.1); SODIUM 143 mmol/L (136-145); TOTAL BILIRUBIN 0.1 mg/dL (0.2-1.0); TOTAL PROTEIN 5.6 g/dL (6.4-8.2); VAL ACID 54 mcg/mL (50-100)
[2019-05-29 07:28] LABS: HEMATOCRIT 19.4 % (39.0-53.0); HEMOGLOBIN 6.5 g/dL (13.0-17.5)
[2019-05-29] MEDS ORDERED: ASCO500T3 PO (07:59)
[2019-05-29] MEDS ORDERED: CITA20TA9 PO (07:59)
[2019-05-29] MEDS ORDERED: DIVA-53 PO (08:00)
[2019-05-29] MEDS: INSULIN LISPRO 300 UNITS/3 ML VIAL. SQ SCH (08:00)
[2019-05-29] MEDS ORDERED: FERR325T14 PO (08:01)
[2019-05-29] MEDS: FUROSEMIDE 40 MG TABLET PO SCH (08:34)
[2019-05-29] MEDS: FAMOTIDINE 20 MG TABLET PO SCH (08:34)
[2019-05-29] MEDS: THIAMINE 100 MG TABLET. PO SCH (08:35)
[2019-05-29] MEDS: CITALOPRAM 20 MG TABLET. PO SCH (08:35)
[2019-05-29] MEDS: POTASSIUM CHLORIDE 20 MEQ TABLET.ER. PO SCH (08:35)
[2019-05-29] MEDS: ASCORBIC ACID 500 MG TABLET PO SCH (08:35)
[2019-05-29] MEDS: CARBIDOPA/LEVODOPA 25/250MG TABLET PO SCH (08:35)
[2019-05-29] MEDS: DONEPEZIL HCL 5 MG TABLET. PO SCH (08:35)
[2019-05-29] MEDS: GABAPENTIN 300 MG CAPSULE. PO SCH (08:35)
[2019-05-29] MEDS: MULTIVITAMIN with MINERAL TABLET. PO SCH (08:35)
[2019-05-29] MEDS: risperiDONE 0.25 MG TABLET. PO SCH (08:35)
[2019-05-29] MEDS: DIVALPROEX SODIUM 250 MG TABLET.DR. PO SCH (08:35)
[2019-05-29] MEDS: FERROUS SULFATE 325 MG TABLET. PO SCH (08:35)
[2019-05-29] MEDS: INSULIN GLARGINE SYRINGE. SQ SCH (08:36)
--- NOTE | 2019-05-30 11:35 | DS ---
DATE OF DISCHARGE: 05/29/2019 PSYCHIATRIC PROGRESS NOTE This late entry 05/29/2019 covers elements not covered in my initial note. SUBJECTIVE: I met with the patient individually. REASON FOR ADMISSION: Please refer to the admission history for details. Briefly, the patient is an 83-year-old male referred to us from [facility] referred by his primary care physician on account of worsening confusion, being combative to staff, increased aggression towards peers. He smacked saldaña out of peer's hand, agitated, restless, grabbing female staff inappropriately. He had failed outpatient psychiatric interventions, appeared more confused, referred for inpatient psychiatric stabilization. SIGNIFICANT FINDINGS AND CLINICAL COURSE: Following admission, the patient was seen daily individually by myself from a psychiatric standpoint, medical followup with Dr. Coley. The patient remains confused, withdrawn, somewhat paranoid. Adjustments were made in his psychotropics. He seemed to be doing better on a combination of trazodone 25 mg at bedtime, Celexa 20 mg a day, Neurontin 300 mg t.i.d., Risperdal 0.25 mg b.i.d., remained on Sinemet 25/250 q.i.d. for Parkinson's and he was on Aricept 5 mg a day, Depo-Provera 150 mg q. 2 weeks, Depakote ER 500 b.i.d. and 250 at 1400 with a level of 44, subtherapeutic, but clinically adequate for him. On 05/29/2019, his hemoglobin was 6.5, hematocrit 19. As he needs a transfusion, was transferred to medical/surgical floor per Dr. Coley. Valproic acid level was 54, therapeutic. REVIEW OF SYSTEMS: Prior to discharge on 05/29/2019, no CV, , pulmonary, eye system symptoms on review. MENTAL STATUS EXAM: Oriented to himself. Insight, judgment, recent memory is impaired, remote is better. Language function intact. Attention span short. Mood and affect less withdrawn. LABORATORY DATA: Reviewed. FINAL DIAGNOSES: Major neurocognitive disorder; Alzheimer; vascular with delusion; depression; behavioral disturbance; anxiety disorder, unspecified; impulse control disorder, unspecified; anemia. Rest unchanged from admission. DISCHARGE MEDICATIONS: Please refer to the MRAD. DISCHARGE INSTRUCTIONS: Psychiatric and medical followup on per Dr. Coley. Time for discharge day management greater than 30 minutes. MAN Jorge Luis ELLIOTT MD DR: DALTON/skip JOB#: [id number] / [id number]
--- NOTE | 2019-05-30 11:50 | PN ---
DATE: 05/28/2019 PSYCHIATRIC PROGRESS NOTE This late entry 05/28/2019 covers elements not covered in my initial note. SUBJECTIVE: I met with the patient evening of 05/28/2019. Per AURY Seo, the patient slept 6 hours previous night. He has not been aggressive, disruptive, but is confused. REVIEW OF SYSTEMS: No CV, , pulmonary, eye system symptoms on review. MENTAL STATUS EXAM: Oriented to himself. Insight, judgment, recent and remote memory, attention, concentration, fund of knowledge poor, consistent with his diagnosis mentioned in my initial note. PLAN: No change from initial note. MAN Jorge Luis ELLIOTT MD DR: DALTON/skip JOB#: [id number] / [id number]
[2019-06-05] MEDS ORDERED: MEDROXYPROGESTERONE ACETATE 150 MG IM SCH (09:00)
[2019-06-05] MEDS ORDERED: medroxyPROGESTERone IM 150 MG/ML VIAL. IM SCH (09:00)
== END 2019-05-29 08:56 | disposition short-term general hospital (02) | DRG 56 ==
LOC: GEROPSY 10:50
PROVIDERS: ADMIT Psychiatry & Neurology Psychiatry; ATTEND Psychiatry & Neurology Psychiatry
DX: G30.9 Alzheimer's disease, unspecified (principal); E43 Unspecified severe protein-calorie malnutrition; F02.81 Dementia in other diseases classified elsewhere, unspecified severity, with behavioral disturbance; F01.50 Vascular dementia, unspecified severity, without behavioral disturbance, psychotic disturbance, mood disturbance, and anxiety; Z66 Do not resuscitate; G20 Parkinson's disease; F41.1 Generalized anxiety disorder; F41.0 Panic disorder [episodic paroxysmal anxiety]; F10.10 Alcohol abuse, uncomplicated; F32.9 Major depressive disorder, single episode, unspecified; E11.22 Type 2 diabetes mellitus with diabetic chronic kidney disease; N18.9 Chronic kidney disease, unspecified; I12.9 Hypertensive chronic kidney disease with stage 1 through stage 4 chronic kidney disease, or unspecified chronic kidney disease; E03.9 Hypothyroidism, unspecified; F63.9 Impulse disorder, unspecified; Z85.46 Personal history of malignant neoplasm of prostate; Z79.899 Other long term (current) drug therapy; Z68.26 Body mass index [BMI] 26.0-26.9, adult
CPT/HCPCS: 36415; 80053; 80061; 80164; 82274; 82306; 82607; 82947; 83036; 83540; 83550; 83735; 84436; 84443; 84480; 85014; 85018; 85025; 86592; 93005; J1815

== ENCOUNTER 2019-05-29 09:00 | Observation (INO) | payer MEDICARE ==
[2019-05-29] VITALS (8 sets, daily range): BP systolic 131–168; BP diastolic 65–71
[~2019-05-29] VITALS: Ht 180.3 cm; Wt 92.8 kg
[~2019-05-29 09:00] MED LIST: ACET325T9 PO; ASCO500T3 PO; CARB-110 PO; CITA20TA9 PO; DIVA-53 PO; DIVA250T PO; DIVA250T4 PO; DONE5TAB56 PO; ESCITALOPRAM OX10 MG PO; FAMO-63 PO; FERR325T14 PO; FURO-68 PO; GABA-586 PO; INSU100I13 SQ; INSU100V31 SQ; LEVO25TA4 PO; MEDR150D3 IM; MULT-238 PO; OXYM15MI4 NS; OXYM30MI NS; POTA20TA83 PO; RISP0.5T24 PO; THIA100T57 PO; TRAZ-120 PO
[2019-05-29] MEDS ORDERED: OXYMETAZOLINE HCL NS PRN (09:30)
[2019-05-29] MEDS ORDERED: DEXTROSE 50% 25 GM / 50ML DISP.SYRIN. IV PRN ×2 (09:30→14:30)
[2019-05-29] MEDS ORDERED: OXYMETAZOLINE 0.05% NASAL SPRAY 30ML BOTTLE. NS PRN (09:45)
--- NOTE | 2019-05-29 09:52 | NUR ---
NSG NOTE; ADMISSION REPORT RECEIVED FROM ALAINA JEFFERS ON [facility] AT 0823 PT ADMITTED TO ROOM 109 AT 0845 VIA W/C ACCOMP BY STAFF. ALL PERSONAL ITEMS BROUGHT TO ROOM WITH PT PT HAD POSITIVE HEME STOOL AND HGB 6.5 SO WAS ADMITTED TO ACUTE CARE FOR PRBC TRANSFUSION DPOA TATIANA GARCIA NOTIFIED OF ACUTE ADMISSION AND GAVE CONSENT FOR BLOOD TRANSFUSION
--- NOTE | 2019-05-29 10:59 | NUR ---
AMADOR left ms. for Nola, Electrical Sign Wire[employer] Helper at [facility], to discuss pt. transfer to the medical floor.
[2019-05-29] MEDS ORDERED: NON FORMULARY ITEM (Insulin Aspart (Novolog) 10 UNIT) SQ SCH (11:30)
[2019-05-29] MEDS: INSULIN LISPRO 300 UNITS/3 ML VIAL. SQ SCH ×3 (12:00→17:00)
[2019-05-29] MEDS: PANTOPRAZOLE IV 40 MG VIAL. IVP SCH (12:37)
[2019-05-29] MEDS: CARBIDOPA/LEVODOPA 25/250MG TABLET PO SCH ×3 (14:01→20:13)
[2019-05-29] MEDS: GABAPENTIN 300 MG CAPSULE. PO SCH ×2 (14:01→20:13)
[2019-05-29] MEDS: DIVALPROEX SODIUM 250 MG TABLET.DR. PO SCH ×2 (14:01→20:13)
--- NOTE | 2019-05-29 15:03 | HP ---
ADMIT DATE: 05/29/2019 HISTORY OF PRESENT ILLNESS: The patient is an 83-year-old male patient who was transferred from [facility] on account of anemia. His hemoglobin has dropped down to 6.5 and hematocrit was 19.4. His stool for occult blood was positive and originally when he came to the unit, he was noted to have anemia with hemoglobin of 7.5, hematocrit 22.4, although his white cell count and platelets are normal and we did actually extensive investigation including his serum iron, TIBC, and iron saturation, which were both consistent with anemia of chronic disease as his TIBC is low. His vitamin B12 was 960 pg/mL and his TSH, total T4 and total T3 are within normal range. We have been monitoring his H and H, has remained stable up until this morning when his H and H dropped down to 6.5 and 19.4 and a decision was made to transfer him to [address] [place] [address] to transfuse him 1 unit of packed RBCs and repeat his stool for occult blood and perhaps consult and if necessary if he continued to bleed actively might transfer him to [facility]. The patient himself is very demented, very poor short memory and does not really give any useful information. PAST MEDICAL HISTORY: Significant for hypertension, alcohol abuse, type 2 diabetes mellitus, prostate cancer, history of acute pancreatitis, hypothyroidism and Parkinson's disease. PAST SURGICAL HISTORY: Unobtainable. PAST PSYCHIATRIC HISTORY: Significant for panic disorder, anxiety, unspecified dementia with behavioral disorders and depression. ALLERGIES: HE IS ALLERGIC TO ATORVASTATIN AND CRESTOR. FAMILY HISTORY: Unobtainable. SOCIAL HISTORY: The patient is single. Claims that he has never , has no children. Does not smoke, drink alcohol or use recreational drugs. The patient was residing at [facility] and was admitted on account of being combative towards staff, increased aggression towards peers, snack taken out of peers, hence agitated, restless, grabbing female staff inappropriately, all this in a background of major neurocognitive disorder, vascular Alzheimer with delusion, depression, anxiety disorder and unspecific or specified impulse control disorder. MEDICATIONS: The patient is currently on following medications: He is on Aricept 5 mg once a day, ferrous sulfate 325 mg twice a day with meals, acetaminophen 650 mg every 6 hours, divalproex 250 mg daily, divalproex 500 mg twice a day, gabapentin 300 mg 3 times a day, citalopram hydrobromide 20 mg daily, trazodone 25 mg at bedtime, risperidone 0.25 mg twice a day, carbidopa/levodopa 25/250 four times a day, potassium chloride 20 mEq twice a day, furosemide 40 mg daily, oxymetazoline for Afrin 2 sprays to each nostril twice a day, famotidine 20 mg daily. He is on NovoLog 10 units before meals and Lantus insulin 25 units subcutaneously twice a day, medroxyprogesterone 150 mg per 1 mL intramuscular every 2 weeks, levothyroxine sodium 25 mcg once a day. He is on thiamine 100 mg once a day, ascorbic acid 500 mg twice a day, multivitamin with minerals 1 tablet once a day. PHYSICAL EXAMINATION: GENERAL: When I saw him today, he was resting slightly, propped up in bed, no apparent distress. He was pale, but no jaundice, cyanosis or thyromegaly. No jugular venous distention. No limb edema. VITAL SIGNS: His heart rate was 78, blood pressure was 131/65, temperature 97.5, respiratory rate was 18 and oxygen saturation was 99% on room air. HEAD, EYES, EARS, NOSE AND THROAT: Showed normocephalic, atraumatic. NECK: Supple. HEART: Showed normal first and second heart sounds with no gallop or murmur. CHEST: Clear to auscultation. No crepitation or rhonchi. ABDOMEN: Distended, soft, nontender. No guarding or rigidity. No organomegaly. All hernial orifices intact. Bowel sounds normal. NEUROLOGIC: He is demented, but somewhat hard of hearing, otherwise all his cranial nerves are intact. EXTREMITIES: He moves extremities without difficulty. The patient is able to ambulate with a walker. LABORATORY DATA: His lab work this morning showed a white cell count 5100, hemoglobin 6.5, hematocrit 19.4, MCV 104 and platelet count of 222,000 with normal manual differential. His chemistry showed a serum sodium 143, potassium 4.5, chloride 110, bicarbonate 24, anion gap of 9, BUN 40, creatinine 1.1, estimated GFR was 64 mL per minute. His glucose was 76, his calcium was 8.8. Total bilirubin, AST, ALT, alkaline phosphatase were normal. Total protein was 5.6, albumin 2.6. In summary, this is a patient with blood loss anemia with hemoglobin that dropped down to 6.5 and hematocrit was 20, which was transferred to [address] [place] [address]. We will type and cross and transfuse him 1 unit of blood. I will give him clear liquid diet. We will monitor his lab work and decide the further management accordingly. LAURITA CHRISTIAN MD DR: DESTINEY/skip JOB#: [id number] / [id number]
--- NOTE | 2019-05-29 16:04 | NUR ---
NSG NOTE; PRBC TRANSFUSION ORDER NOTED. TYPE, CROSS AND SCREEN DRAWN BLOOD TUBING PRIMED WITH NS THEN PRIMED WITH BLOOD. TRANSFUSION STARTED AT 1248 AT 75 ML/HG I STAYED WITH THE PT X 15 WITH NO S/S OF TRANSFUSION REACTION NOTED TRANSFUSION RATE INCREASED TO 150 ML/HR AT THAT TIME TRANSFUSION COMPLETE AT 1510 LINE FLUSHED PT SKINNY PROCEDURE WELL
[2019-05-29 17:12] LABS: HEMATOCRIT 24.9 % (39.0-53.0); HEMOGLOBIN 8.4 g/dL (13.0-17.5)
[2019-05-29] MEDS: FERROUS SULFATE 325 MG TABLET. PO SCH (17:48)
[2019-05-29] MEDS: ASCORBIC ACID 500 MG TABLET PO SCH (20:12)
[2019-05-29] MEDS: ACETAMINOPHEN 325 MG TABLET PO PRN (20:13)
[2019-05-29] MEDS: risperiDONE 0.5 MG TABLET. PO SCH (20:13)
[2019-05-29] MEDS: POTASSIUM CHLORIDE 20 MEQ TABLET.ER. PO SCH (20:13)
[2019-05-29] MEDS ORDERED: INSULIN GLARGINE SYRINGE. SQ SCH (21:00)
[2019-05-29] MEDS ORDERED: NON FORMULARY ITEM (Potassium Chloride 20 MEQ) PO SCH (21:00)
[2019-05-29] MEDS ORDERED: DIVALPROEX SODIUM 500 MG PO SCH (21:00)
[2019-05-29] MEDS ORDERED: INSULIN GLARGINE HUM REC ANLOG 25 UNIT SQ SCH (21:00)
[2019-05-29] MEDS ORDERED: traZODone 50 MG TABLET. PO SCH (21:00)
--- NOTE | 2019-05-29 22:57 | PDOC ---
Exam Note: Kirby Note: Please also refer to the separate dictated note~for this date of service dictated separately.~Patient seen individually. Discussed the patient with Nursing staff reviewed the chart.~Reviewed interim history and current functioning. Reviewed vital signs,~Labs/ Radiology~and current medications noted below. Continue current treatment with the changes noted in the dictated addendum note Assessment: Vital Signs/I&O: Vital Signs Date Time Temp Pulse Resp B/P (MAP) Pulse Ox O2 Delivery O2 Flow Rate FiO2 05/29/19 19:25 Room Air 05/29/19 19:20 98.3 66 20 152/65 (94) 92 Labs: Laboratory Tests Test 05/29/19 07:50 05/29/19 16:22 05/29/19 17:05 05/29/19 21:27 Iron Level 74 ug/dL (65-175) Total Iron Binding Capacity 235 ug/dL (250-450) L Iron Saturation 31 % (15-34) Glucose (Fingerstick) 179 mg/dL (70-99) H 115 mg/dL (70-99) H Hemoglobin 8.4 g/dL (13.0-17.5) L Hematocrit 24.9 % (39.0-53.0) L Current Medications: Meds: Current Medications Medications (Trade) Dose Ordered Sig/Miriam Route PRN Reason Start Time Stop Time Status Last Admin Dose Admin Acetaminophen (Tylenol) 650 mg PRN Q6HRS PRN PO PAIN 05/29/19 09:30 05/29/19 20:13 Ascorbic Acid (Vitamin C) 500 mg BID PO 05/29/19 21:00 05/29/19 20:12 Carbidopa/Levodopa (Sinemet 25/250) 1 tab QID PO 05/29/19 13:00 05/29/19 20:13 Divalproex Sodium (Depakote) 250 mg DAILY@1400 PO 05/29/19 14:00 05/29/19 14:01 Ferrous Sulfate (Feosol) 325 mg BIDWMEALS PO 05/29/19 17:00 05/29/19 17:48 Gabapentin (Neurontin) 300 mg TID PO 05/29/19 14:00 05/29/19 20:13 Risperidone (RisperDAL) 0.25 mg BID PO 05/29/19 21:00 05/29/19 20:13 Trazodone HCl (Desyrel) 25 mg HS PO 05/29/19 21:00 05/29/19 20:13 Divalproex Sodium (Depakote) 500 mg BID PO 05/29/19 21:00 05/29/19 20:13 Potassium Chloride (Klor-Con) 20 meq BID PO 05/29/19 21:00 05/29/19 20:13 Pantoprazole Sodium (Protonix Vial) 40 mg DAILYAC IVP 05/29/19 10:45 05/29/19 12:37 I have reviewed the current psychotropics carefully including drug interactions. Risk benefit ratio favors no change other than as noted in my dictated progress note. Diagnosis: Problems: (1) Major neurocognitive disorder due to Alzheimer's disease, probable, with behavioral disturbance (2) Anxiety disorder (3) Dementia in Alzheimer's disease with delusions (4) Dementia in Alzheimer's disease with depression (5) Dementia, vascular, with delusions (6) Dementia, vascular, with depression (7) Impulse control disorder CHRISTIAN ELLIOTT MD May 29, 2019 22:57
[2019-05-30 06:21] LABS: HEMATOCRIT 26.4 % (39.0-53.0); HEMOGLOBIN 8.7 g/dL (13.0-17.5); RED BLOOD COUNT 2.56 x10^6/uL (4.30-5.70); WHITE BLOOD COUNT 6.3 x10^3/uL (4.0-11.0)
[2019-05-30 06:22] VITALS: BP 147/69
[2019-05-30 06:30] LABS: ALBUMIN 2.9 g/dL (3.4-5.0); ALBUMIN/GLOBULIN RATIO 0.9 (1.0-1.7); CALCIUM 8.8 mg/dL (8.5-10.1); CREATININE 1.1 mg/dL (0.7-1.3); GFR 63.9; TOTAL BILIRUBIN 0.3 mg/dL (0.2-1.0); TOTAL PROTEIN 6.1 g/dL (6.4-8.2)
[2019-05-30] MEDS ORDERED: LEVOTHYROXINE 25 MCG TABLET. PO SCH (07:30)
[2019-05-30] MEDS: INSULIN LISPRO 300 UNITS/3 ML VIAL. SQ SCH ×2 (08:00→12:00)
[2019-05-30] MEDS: DIVALPROEX SODIUM 250 MG TABLET.DR. PO SCH ×2 (08:35→12:48)
[2019-05-30] MEDS: PANTOPRAZOLE IV 40 MG VIAL. IVP SCH (08:35)
[2019-05-30] MEDS: ASCORBIC ACID 500 MG TABLET PO SCH (08:36)
[2019-05-30] MEDS: GABAPENTIN 300 MG CAPSULE. PO SCH ×2 (08:36→12:48)
[2019-05-30] MEDS: POTASSIUM CHLORIDE 20 MEQ TABLET.ER. PO SCH (08:36)
[2019-05-30] MEDS: FERROUS SULFATE 325 MG TABLET. PO SCH (08:36)
[2019-05-30] MEDS: risperiDONE 0.5 MG TABLET. PO SCH (08:36)
[2019-05-30] MEDS: ACETAMINOPHEN 325 MG TABLET PO PRN (08:40)
[2019-05-30] MEDS: CARBIDOPA/LEVODOPA 25/250MG TABLET PO SCH ×2 (08:40→12:48)
[2019-05-30] MEDS ORDERED: FUROSEMIDE 40 MG TABLET PO SCH (09:00)
[2019-05-30] MEDS ORDERED: THIAMINE HCL PO SCH (09:00)
[2019-05-30] MEDS ORDERED: DONEPEZIL HCL 5 MG TABLET. PO SCH (09:00)
[2019-05-30] MEDS ORDERED: FAMOTIDINE 20 MG TABLET PO SCH (09:00)
[2019-05-30] MEDS ORDERED: MULTIVIT THER IRON CA FA PO SCH (09:00)
[2019-05-30] MEDS ORDERED: MULTIVITAMIN with MINERAL TABLET. PO SCH (09:00)
[2019-05-30] MEDS ORDERED: CITALOPRAM 20 MG TABLET. PO SCH (09:00)
[2019-05-30] MEDS ORDERED: [UNRECOGNIZED DRUG - OTHER] PO SCH (09:00)
[2019-05-30] MEDS ORDERED: THIAMINE 100 MG TABLET. PO SCH (09:00)
--- NOTE | 2019-05-30 13:34 | PN ---
DATE: 05/30/2019 SUBJECTIVE: The patient is resting, slightly propped up in bed, in no apparent distress, awake, alert. On questioning him, he denied any complaint. He did receive 1 unit of packed RBCs and his H and H remained stable. His H and H were 8.4 and 24.9 yesterday and are up to 8.7 and 26.4 today. His white cell count and platelets are normal. The patient himself denied any complaint. The nursing staff stated that he has been compliant and cooperative. PHYSICAL EXAMINATION: GENERAL: When I examined him this morning, he looked well and was clearly in no apparent respiratory distress. He was pale, but no jaundice, cyanosis or thyromegaly. No jugular venous distention. No lower limb edema. VITAL SIGNS: His heart rate was 71, blood pressure was 147/69, temperature was 98.4, respiratory rate 20, and oxygen saturation was 96%. The rest of clinical exam: Examination of the head, eyes, ears, nose and throat showed normocephalic, atraumatic. NECK: Supple. HEART: Showed normal first and second heart sounds. No gallop or murmur. CHEST: Clear to auscultation. No crepitation or rhonchi. ABDOMEN: Distended, soft, nontender. NEUROLOGIC: He was awake, alert, responding appropriately. All cranial nerves are intact. He moves all extremities without difficulty. Apparently, he is able to ambulate with a walker. His intake over the last 24 hours was 1500, no output was recorded. LABORATORY DATA: His lab work this morning showed a serum sodium 138, potassium 4, chloride 105, bicarbonate 24, anion gap of 9, BUN 28, creatinine was 1.1, estimated GFR was 64 mL per minute. His glucose 109. Calcium was 8.8. Total bilirubin, AST, ALT, alkaline phosphatase were normal. Total protein was 6.1. Albumin was 2.9. His white cell count was 6300, hemoglobin 8.7, hematocrit 26.4, MCV 103 and platelet count 241,000. ASSESSMENT: This is an 83-year-old male patient who was transferred from [facility] on account of anemia with hemoglobin that dropped down to 6.5, hematocrit 19.4, did receive 1 unit of packed RBCs and basically, his H and H remained stable. There was no evidence of any active gastrointestinal bleed. On this admission, the nursing staff did not report any hematemesis, melena or hematochezia. No hematuria. He has obviously multiple other medical problems including hypertension, type 2 diabetes mellitus, history of acute pancreatitis, hypothyroidism, Parkinson's disease and prostate cancer. My plan is to screen the patient to see if he qualifies to go upstairs. Otherwise, he might have to be discharged back to the half-way facility that he came from. LAURITA CHRISTIAN MD DR: DESTINEY/skip JOB#: [id number] / [id number]
--- NOTE | 2019-05-30 15:53 | DS ---
DATE OF DISCHARGE: 05/30/2019 HOSPITAL COURSE: The patient is an 83-year-old male patient who was transferred from [facility] on account of anemia. He apparently dropped his H and H down to 6.5 and 19.4 and therefore he was transferred to [address] [place] [address], was transfused 1 unit of packed RBCs. His H and H remained stable, yesterday was 8.4 and 24.9, today was 8.7 and 26.4. The patient himself remained hemodynamically stable and there is no evidence of any hematemesis, melena or hematochezia, no hematuria, hemoptysis or epistaxis and therefore, the patient was screened by the [facility] team and he qualifies to go back for inpatient psychiatric stabilization. PHYSICAL EXAMINATION: GENERAL: When I saw him this afternoon, he looked well and was clearly in no apparent respiratory distress. No pallor, jaundice, cyanosis or thyromegaly. No jugular venous distention. No lower limb edema. VITAL SIGNS: His heart rate was 71, blood pressure was 147/69, temperature was 98.4, respiratory rate 20, and oxygen saturation was 96%. HEAD, EYES, EARS, NOSE AND THROAT: Showed normocephalic, atraumatic. NECK: Supple. CARDIAC: Normal first and second heart sounds. No gallop or murmur. CHEST: Clear to auscultation. No crepitation or rhonchi. ABDOMEN: Distended, soft, nontender. NEUROLOGIC: He is awake, alert, responding appropriately. All his cranial nerves are intact. He moves extremities without difficulty, he apparently ambulates with a walker. His intake was 1500, no output was recorded. LABORATORY DATA: Showed a white cell count of 6300, hemoglobin 8.7, hematocrit 26.4, MCV 103 and platelet count 241,000. Serum sodium was 138, potassium 4, chloride 105, bicarbonate 24, anion gap of 9, BUN 28, creatinine 1.1, estimated GFR was 64 mL per minute. Glucose 109. Calcium was 8.8. Total bilirubin, AST, ALT, alkaline phosphatase were normal. Total protein 6.1, albumin 2.9. DISCHARGE MEDICATIONS: He was discharged back to [facility] to continue on acetaminophen 650 mg every 6 hours, ascorbic acid 500 mg twice a day, carbidopa/levodopa 1 tablet 4 times a day, citalopram hydrobromide for Celexa 20 mg daily, divalproex sodium 250 mg daily, divalproex sodium 500 mg twice a day, Aricept 5 mg daily, famotidine 20 mg daily, ferrous sulfate 325 mg twice a day, furosemide 40 mg daily, gabapentin 300 mg 3 times a day, levothyroxine sodium 25 mcg once a day, medroxyprogesterone acetate for Depo-Provera 150 mg in 1 mL intramuscular every 2 weeks, multivitamin with mineral 1 tablet once a day, oxymetazoline for Afrin 2 sprays to each nostril twice a day, potassium chloride 20 mEq twice a day, risperidone 0.25 mg twice a day, thiamine, vitamin B 100 mg once a day and trazodone 25 mg once a day at bedtime. FINAL DISCHARGE DIAGNOSES: 1. Blood loss anemia, status post transfusion of 1 unit of packed RBCs. His H and H remained stable. 2. Hypertension, type 2 diabetes mellitus, hypothyroidism and Parkinson's disease, history of pancreatitis and prostate cancer and alcohol abuse. LAURITA CHRISTIAN MD DR: DESTINEY/skip JOB#: [id number] / [id number]
--- NOTE | 2019-05-30 17:11 | NUR ---
Nursing Notes: Patient discharged to [facility] at [facility]. All patient belongings sent with patient. Other facility given discharge instructions. Patient taken to unit per w/c propelled by staff. No concerns at this time.
[2019-06-12] MEDS ORDERED: MEDROXYPROGESTERONE ACETATE 150 MG IM SCH (09:00)
== END 2019-05-30 17:13 | disposition psychiatric hospital, planned readmission (93) ==
LOC: INTOOBSV 09:00 → 1 SOUTH 09:00
PROVIDERS: ADMIT Internal Medicine; ATTEND Internal Medicine
DX: D50.0 Iron deficiency anemia secondary to blood loss (chronic) (principal); I10 Essential (primary) hypertension; E11.9 Type 2 diabetes mellitus without complications; E03.9 Hypothyroidism, unspecified; G20 Parkinson's disease; Z85.46 Personal history of malignant neoplasm of prostate; Z12.5 Encounter for screening for malignant neoplasm of prostate
CPT/HCPCS: 36415; 36430; 80053; 82947; 83540; 83550; 85014; 85018; 85027; 86850; 86900; 86901; 86920; C9113; G0103; G0378; G0379; P9016; J1815

== ENCOUNTER 2019-05-30 16:58 | Inpatient (IN) | payer MEDICARE ==
[~2019-05-30] VITALS: Ht 185.4 cm; Wt 97.9 kg
[2019-05-30] MEDS ORDERED: METHYL SALICYLATE/MENTHOL TOPICAL OINTMENT 57GM TUBE. TP PRN (17:45)
[2019-05-30] MEDS ORDERED: ACETAMINOPHEN 325 MG TABLET PO PRN ×2 (17:45→18:00)
[2019-05-30] MEDS ORDERED: MAG HYDROX/AL HYDROX/SIMETH 30 ML ORAL.SUSP PO PRN (17:45)
[2019-05-30] MEDS ORDERED: MAGNESIUM HYDROXIDE 2,400 MG/30 ML ORAL.SUSP. PO PRN (17:45)
[2019-05-30] MEDS ORDERED: OXYMETAZOLINE HCL NS PRN (18:00)
[2019-05-30] MEDS ORDERED: INSULIN LISPRO 300 UNITS/3 ML VIAL. SQ ONE (18:30)
[2019-05-30] MEDS: traZODone 50 MG TABLET. PO SCH (20:59)
[2019-05-30] MEDS: GABAPENTIN 300 MG CAPSULE. PO SCH (20:59)
[2019-05-30] MEDS: ASCORBIC ACID 500 MG TABLET PO SCH (20:59)
[2019-05-30 21:00] VITALS: BP 143/72
[2019-05-30] MEDS ORDERED: NON FORMULARY ITEM (Potassium Chloride 20 MEQ) PO SCH (21:00)
[2019-05-30] MEDS: INSULIN GLARGINE SYRINGE. SQ SCH (21:00)
[2019-05-30] MEDS: CARBIDOPA/LEVODOPA 25/250MG TABLET PO SCH (21:00)
[2019-05-30] MEDS: risperiDONE 0.5 MG TABLET. PO SCH (21:00)
[2019-05-30] MEDS ORDERED: DIVALPROEX SODIUM 500 MG PO SCH (21:00)
[2019-05-30] MEDS: DIVALPROEX SODIUM 250 MG TABLET.DR. PO SCH (21:00)
--- NOTE | 2019-05-30 23:06 | PDOC ---
Exam Note: Kirby Note: Please also refer to the separate dictated note~for this date of service dictated separately. Discussed the patient with Nursing staff reviewed the chart.~Reviewed interim history and current functioning. Reviewed vital signs,~Labs/ Radiology~and current medications noted below. Continue current treatment with the changes noted in the dictated addendum note Assessment: Labs: Laboratory Tests Test 05/30/19 19:38 Glucose (Fingerstick) 279 mg/dL (70-99) H Current Medications: Meds: Current Medications Medications (Trade) Dose Ordered Sig/Miriam Route PRN Reason Start Time Stop Time Status Last Admin Dose Admin Ascorbic Acid (Vitamin C) 500 mg BID PO 05/30/19 21:00 05/30/19 20:59 Carbidopa/Levodopa (Sinemet 25/250) 1 tab QID PO 05/30/19 21:00 05/30/19 21:00 Gabapentin (Neurontin) 300 mg TID PO 05/30/19 21:00 05/30/19 20:59 Risperidone (RisperDAL) 0.25 mg BID PO 05/30/19 21:00 05/30/19 21:00 Trazodone HCl (Desyrel) 25 mg HS PO 05/30/19 21:00 05/30/19 20:59 Insulin Glargine (Lantus Syringe) 25 unit BID SQ 05/30/19 21:00 05/30/19 21:00 Divalproex Sodium (Depakote) 500 mg BID PO 05/30/19 21:00 05/30/19 21:00 I have reviewed the current psychotropics carefully including drug interactions. Risk benefit ratio favors no change other than as noted in my dictated progress note. Diagnosis: Problems: (1) Major neurocognitive disorder due to Alzheimer's disease, probable, with behavioral disturbance (2) Anxiety disorder (3) Dementia in Alzheimer's disease with delusions (4) Dementia in Alzheimer's disease with depression (5) Dementia, vascular, with delusions (6) Dementia, vascular, with depression (7) Impulse control disorder CHRISTIAN ELLIOTT MD May 30, 2019 23:06
[2019-05-31] MEDS: LEVOTHYROXINE 25 MCG TABLET. PO SCH (06:00)
[2019-05-31 07:01] VITALS: BP 114/62
[2019-05-31] MEDS ORDERED: LEVOTHYROXINE 25 MCG TABLET. PO SCH (07:30)
[2019-05-31] MEDS: INSULIN LISPRO 300 UNITS/3 ML VIAL. SQ SCH ×3 (07:30→17:44)
[2019-05-31] MEDS: DONEPEZIL HCL 5 MG TABLET. PO SCH (09:00)
[2019-05-31] MEDS: INSULIN GLARGINE SYRINGE. SQ SCH ×2 (09:00→20:32)
[2019-05-31] MEDS ORDERED: THIAMINE HCL PO SCH (09:00)
[2019-05-31] MEDS: FAMOTIDINE 20 MG TABLET PO SCH (09:00)
[2019-05-31] MEDS ORDERED: [UNRECOGNIZED DRUG - OTHER] PO SCH (09:00)
[2019-05-31] MEDS ORDERED: MULTIVIT THER IRON CA FA PO SCH (09:00)
[2019-05-31] MEDS: DIVALPROEX SODIUM 250 MG TABLET.DR. PO SCH ×3 (09:01→20:25)
[2019-05-31] MEDS: GABAPENTIN 300 MG CAPSULE. PO SCH ×3 (09:01→20:26)
[2019-05-31] MEDS: FUROSEMIDE 40 MG TABLET PO SCH (09:01)
[2019-05-31] MEDS: CITALOPRAM 20 MG TABLET. PO SCH (09:01)
[2019-05-31] MEDS: risperiDONE 0.5 MG TABLET. PO SCH ×2 (09:01→20:26)
[2019-05-31] MEDS: FERROUS SULFATE 325 MG TABLET. PO SCH ×2 (09:03→17:43)
[2019-05-31] MEDS: CARBIDOPA/LEVODOPA 25/250MG TABLET PO SCH ×4 (09:03→20:26)
[2019-05-31] MEDS: ASCORBIC ACID 500 MG TABLET PO SCH ×2 (09:03→20:25)
[2019-05-31 16:13] VITALS: BP 120/66
--- NOTE | 2019-05-31 19:41 | HP ---
ADMIT DATE: 05/30/2019 PSYCHIATRIC ADMISSION HISTORY-EVALUATION This is a late entry covers elements not covered in my initial note. IDENTIFYING DATA: The patient is an 83-year-old male who returns back to us from [address] [place] [address] Medical/Surgical floor after he was stabilized there for his low hemoglobin and hematocrit and received blood transfusion. He was initially referred to us from [facility] on 05/22/2019 on account of increasing confusion, being combative towards staff, increasing aggression towards peers. He was agitated, restless, grabbing female staff inappropriately. He had failed outpatient psychiatric interventions resulting in this referral. As he was being psychiatrically stabilized, was gradually doing a little better from a psychiatric standpoint, but hemoglobin and hematocrit dropped significantly. He was transferred to [address] [place] [address] for transfusion and now returns back to us for continued psychiatric stabilization. CHIEF COMPLAINT: "I am okay." The patient is quite confused. HISTORY OF PRESENT ILLNESS: The patient has a history of dementia, Alzheimer's vascular type. He has been residing at the [facility] for some time, recently getting more agitated, disruptive as noted above. He has had some sleep and appetite changes. No clear history of bipolar disorder, suicidal or homicidal ideation. PAST PSYCHIATRIC HISTORY: As above. MEDICAL HISTORY: Positive for hypertension, past history of alcohol abuse, diabetes mellitus type 2, history of prostate cancer, history of acute pancreatitis, hypothyroidism, Parkinson's disease. ALLERGIES: ATORVASTATIN, ROSUVASTATIN. CODE STATUS: DNR. DIET: ADA. ACCU-CHEKS: A.c. and at bedtime. Takes medications whole, ambulates up ad lloyd with walker when tired. CURRENT PSYCHOTROPICS: MRAD was reviewed and he is on Depo-Provera, Sinemet, trazodone, Celexa, gabapentin, Risperdal, Depakote. FAMILY HISTORY: Noncontributory. SOCIAL HISTORY: The patient resides at the above facility. Past history of alcohol abuse is noted. REVIEW OF SYSTEMS: No CV, , pulmonary, eye system symptoms on review. MENTAL STATUS EXAMINATION: Oriented to himself. He is not very verbal, somewhat withdrawn. Abstraction fair, computation impaired, language function intact, attention span short. Mood and affect withdrawn. LABORATORY DATA: Reviewed. IMPRESSION: Major neurocognitive disorder, multifactorial consequent to possible alcohol abuse in the past, Alzheimer, vascular with delusion, depression, behavioral disturbance; anxiety disorder, unspecified; impulse control disorder, unspecified; and status post blood transfusion for anemia, rest unchanged from above. PLAN: Admit to Geropsychiatry Unit at [facility]. I will see the patient daily individually from a psychiatric standpoint. Medical followup with Dr. Coley. Continue the patient on his current psychotropics. Observe baseline. Make further changes as clinically indicated. Estimated length of stay 5-7 days. DISPOSITION: Plans back to [facility] when [facility]. MAN Jorge Luis ELLIOTT MD DR: DALTON/skip JOB#: [id number] / [id number]
[2019-05-31] MEDS: traZODone 50 MG TABLET. PO SCH (20:26)
--- NOTE | 2019-05-31 22:48 | PDOC ---
Exam Note: Kirby Note: Please also refer to the separate dictated note~for this date of service dictated separately. Discussed the patient with Nursing staff reviewed the chart.~Reviewed interim history and current functioning. Reviewed vital signs,~Labs/ Radiology~and current medications noted below. Continue current treatment with the changes noted in the dictated addendum note Assessment: Vital Signs/I&O: Vital Signs Date Time Temp Pulse Resp B/P (MAP) Pulse Ox O2 Delivery O2 Flow Rate FiO2 05/31/19 16:13 98.4 73 20 120/66 (84) 99 05/30/19 21:00 Room Air I & O 05/30/19 05/30/19 05/31/19 15:00 23:00 07:00 Intake Total 240 ml 120 ml Balance 240 ml 120 ml Labs: Laboratory Tests Test 05/31/19 07:58 05/31/19 11:50 05/31/19 16:57 05/31/19 19:29 Glucose (Fingerstick) 103 mg/dL (70-99) H 210 mg/dL (70-99) H 131 mg/dL (70-99) H 120 mg/dL (70-99) H Current Medications: Meds: Current Medications Medications (Trade) Dose Ordered Sig/Miriam Route PRN Reason Start Time Stop Time Status Last Admin Dose Admin Citalopram Hydrobromide (CeleXA) 20 mg DAILY PO 05/31/19 09:00 05/31/19 09:01 Divalproex Sodium (Depakote) 250 mg DAILY@1400 PO 05/31/19 14:00 05/31/19 12:19 Donepezil HCl (Aricept) 5 mg DAILY PO 05/31/19 09:00 05/31/19 09:00 Famotidine (Pepcid) 20 mg DAILY PO 05/31/19 09:00 05/31/19 09:00 Ferrous Sulfate (Feosol) 325 mg BIDWMEALS PO 05/31/19 08:00 05/31/19 17:43 Furosemide (Lasix) 40 mg DAILY PO 05/31/19 09:00 05/31/19 09:01 Insulin Human Lispro (HumaLOG) 10 units TIDAC SQ 05/31/19 07:30 05/31/19 17:44 Levothyroxine Sodium (Synthroid) 25 mcg DAILY06 PO 05/31/19 06:00 05/31/19 06:00 I have reviewed the current psychotropics carefully including drug interactions. Risk benefit ratio favors no change other than as noted in my dictated progress note. Diagnosis: Problems: (1) Major neurocognitive disorder due to Alzheimer's disease, probable, with behavioral disturbance (2) Anxiety disorder (3) Dementia in Alzheimer's disease with delusions (4) Dementia in Alzheimer's disease with depression (5) Dementia, vascular, with delusions (6) Dementia, vascular, with depression (7) Impulse control disorder CHRISTIAN ELLIOTT MD May 31, 2019 22:48
[2019-06-01] MEDS: LEVOTHYROXINE 25 MCG TABLET. PO SCH (05:35)
[2019-06-01 06:17] VITALS: BP 146/73
[2019-06-01] MEDS: DONEPEZIL HCL 5 MG TABLET. PO SCH (09:15)
[2019-06-01] MEDS: FERROUS SULFATE 325 MG TABLET. PO SCH ×2 (09:15→18:05)
[2019-06-01] MEDS: CITALOPRAM 20 MG TABLET. PO SCH (09:15)
[2019-06-01] MEDS: ASCORBIC ACID 500 MG TABLET PO SCH ×2 (09:16→20:13)
[2019-06-01] MEDS: CARBIDOPA/LEVODOPA 25/250MG TABLET PO SCH ×4 (09:16→20:13)
[2019-06-01] MEDS: DIVALPROEX SODIUM 250 MG TABLET.DR. PO SCH ×3 (09:16→20:12)
[2019-06-01] MEDS: FUROSEMIDE 40 MG TABLET PO SCH (09:16)
[2019-06-01] MEDS: FAMOTIDINE 20 MG TABLET PO SCH (09:16)
[2019-06-01] MEDS: risperiDONE 0.5 MG TABLET. PO SCH ×2 (09:16→20:13)
[2019-06-01] MEDS: GABAPENTIN 300 MG CAPSULE. PO SCH ×3 (09:23→20:13)
[2019-06-01] MEDS: INSULIN LISPRO 300 UNITS/3 ML VIAL. SQ SCH ×3 (09:35→18:09)
[2019-06-01] MEDS: INSULIN GLARGINE SYRINGE. SQ SCH ×2 (09:35→20:16)
[2019-06-01 11:57] LABS: BASO % 1 % (0-3); EOS # 0.1 x10^3/uL (0.0-0.7); EOS % 2 % (0-3); HEMATOCRIT 24.6 % (39.0-53.0); HEMOGLOBIN 8.2 g/dL (13.0-17.5); LYMPH # 1.2 x10^3/uL (1.0-4.8); LYMPH % 20 % (24-48); MEAN CORPUSCULAR HEMOGLOBIN 34 pg (25-35); MEAN CORPUSCULAR HGB CONC 33 g/dL (31-37); MEAN CORPUSCULAR VOLUME 102 fL (79-100); MONO # 0.7 x10^3/uL (0.0-1.1); MONO % 11 % (0-9); NEUT # 3.9 x10^3uL (1.8-7.7); NEUT % 66 % (31-73); PLATELET COUNT 213 x10^3/uL (140-400); RED BLOOD COUNT 2.42 x10^6/uL (4.30-5.70); RED CELL DISTRIBUTION WIDTH 15.6 % (11.5-14.5)
[2019-06-01 12:16] LABS: ALBUMIN 2.9 g/dL (3.4-5.0); ALBUMIN/GLOBULIN RATIO 0.9 (1.0-1.7); ALK PHOS 64 U/L (46-116); ALT (SGPT) 8 U/L (16-63); ANION GAP 9 (6-14); AST (SGOT) 11 U/L (15-37); BLOOD UREA NITROGEN 33 mg/dL (8-26); BUN/CREATININE RATIO 25 (6-20); CALCIUM 9.2 mg/dL (8.5-10.1); CARBON DIOXIDE 25 mmol/L (21-32); CHLORIDE 106 mmol/L (98-107); CREATININE 1.3 mg/dL (0.7-1.3); GFR 52.7; GLUCOSE 198 mg/dL (70-99); POTASSIUM 4.1 mmol/L (3.5-5.1); SODIUM 140 mmol/L (136-145); TOTAL BILIRUBIN 0.3 mg/dL (0.2-1.0)
[2019-06-01 12:29] LABS: VAL ACID 51 mcg/mL (50-100)
[2019-06-01 16:35] VITALS: BP 117/63
[2019-06-01] MEDS: traZODone 50 MG TABLET. PO SCH (20:13)
--- NOTE | 2019-06-01 21:53 | PDOC ---
Exam Note: Kirby Note: Please also refer to the separate dictated note~for this date of service dictated separately. Discussed the patient with Nursing staff reviewed the chart.~Reviewed interim history and current functioning. Reviewed vital signs,~Labs/ Radiology~and current medications noted below. Continue current treatment with the changes noted in the dictated addendum note Assessment: Vital Signs/I&O: Vital Signs Date Time Temp Pulse Resp B/P (MAP) Pulse Ox O2 Delivery O2 Flow Rate FiO2 06/01/19 16:35 98.4 73 20 117/63 (81) 99 Room Air I & O 05/31/19 05/31/19 06/01/19 15:00 23:00 07:00 Intake Total 600 ml 600 ml Balance 600 ml 600 ml Labs: Laboratory Tests Test 06/01/19 09:28 06/01/19 11:15 06/01/19 11:30 06/01/19 17:16 Glucose (Fingerstick) 206 mg/dL (70-99) H 196 mg/dL (70-99) H 151 mg/dL (70-99) H White Blood Count 6.0 x10^3/uL (4.0-11.0) Red Blood Count 2.42 x10^6/uL (4.30-5.70) L Hemoglobin 8.2 g/dL (13.0-17.5) L Hematocrit 24.6 % (39.0-53.0) L Mean Corpuscular Volume 102 fL (79-100) H Mean Corpuscular Hemoglobin 34 pg (25-35) Mean Corpuscular Hemoglobin Concent 33 g/dL (31-37) Red Cell Distribution Width 15.6 % (11.5-14.5) H Platelet Count 213 x10^3/uL (140-400) Neutrophils (%) (Auto) 66 % (31-73) Lymphocytes (%) (Auto) 20 % (24-48) L Monocytes (%) (Auto) 11 % (0-9) H Eosinophils (%) (Auto) 2 % (0-3) Basophils (%) (Auto) 1 % (0-3) Neutrophils # (Auto) 3.9 x10^3uL (1.8-7.7) Lymphocytes # (Auto) 1.2 x10^3/uL (1.0-4.8) Monocytes # (Auto) 0.7 x10^3/uL (0.0-1.1) Eosinophils # (Auto) 0.1 x10^3/uL (0.0-0.7) Basophils # (Auto) 0.0 x10^3/uL (0.0-0.2) Sodium Level 140 mmol/L (136-145) Potassium Level 4.1 mmol/L (3.5-5.1) Chloride Level 106 mmol/L (98-107) Carbon Dioxide Level 25 mmol/L (21-32) Anion Gap 9 (6-14) Blood Urea Nitrogen 33 mg/dL (8-26) H Creatinine 1.3 mg/dL (0.7-1.3) Estimated GFR (Cockcroft-Gault) 52.7 BUN/Creatinine Ratio 25 (6-20) H Glucose Level 198 mg/dL (70-99) H Calcium Level 9.2 mg/dL (8.5-10.1) Total Bilirubin 0.3 mg/dL (0.2-1.0) Aspartate Amino Transferase (AST) 11 U/L (15-37) L Alanine Aminotransferase (ALT) 8 U/L (16-63) L Alkaline Phosphatase 64 U/L (46-116) Total Protein 6.0 g/dL (6.4-8.2) L Albumin 2.9 g/dL (3.4-5.0) L Albumin/Globulin Ratio 0.9 (1.0-1.7) L Valproic Acid Level 51 mcg/mL (50-100) Valproic Acid Last Dose Date 05/31/19 Valproic Acid Last Dose Time 2100 Test 06/01/19 19:44 Glucose (Fingerstick) 188 mg/dL (70-99) H Current Medications: I have reviewed the current psychotropics carefully including drug interactions. Risk benefit ratio favors no change other than as noted in my dictated progress note. Diagnosis: Problems: (1) Anemia of chronic disease (2) Major neurocognitive disorder due to Alzheimer's disease, probable, with behavioral disturbance (3) Anxiety disorder (4) Dementia in Alzheimer's disease with delusions (5) Dementia in Alzheimer's disease with depression (6) Dementia, vascular, with delusions (7) Dementia, vascular, with depression (8) Impulse control disorder CHRISTIAN ELLIOTT MD Jun 01, 2019 21:53
[2019-06-02] MEDS: LEVOTHYROXINE 25 MCG TABLET. PO SCH (05:17)
[2019-06-02 06:20] VITALS: BP 145/67
[2019-06-02] MEDS: INSULIN LISPRO 300 UNITS/3 ML VIAL. SQ SCH ×3 (09:14→17:24)
[2019-06-02] MEDS: INSULIN GLARGINE SYRINGE. SQ SCH ×2 (09:15→20:09)
[2019-06-02] MEDS: FERROUS SULFATE 325 MG TABLET. PO SCH ×2 (09:15→17:22)
[2019-06-02] MEDS: DONEPEZIL HCL 5 MG TABLET. PO SCH (09:16)
[2019-06-02] MEDS: FUROSEMIDE 40 MG TABLET PO SCH (09:16)
[2019-06-02] MEDS: FAMOTIDINE 20 MG TABLET PO SCH (09:16)
[2019-06-02] MEDS: ASCORBIC ACID 500 MG TABLET PO SCH ×2 (09:16→20:04)
[2019-06-02] MEDS: risperiDONE 0.5 MG TABLET. PO SCH ×2 (09:16→20:04)
[2019-06-02] MEDS: DIVALPROEX SODIUM 250 MG TABLET.DR. PO SCH ×3 (09:16→20:04)
[2019-06-02] MEDS: CARBIDOPA/LEVODOPA 25/250MG TABLET PO SCH ×4 (09:16→20:04)
[2019-06-02] MEDS: CITALOPRAM 20 MG TABLET. PO SCH (09:16)
[2019-06-02] MEDS: GABAPENTIN 300 MG CAPSULE. PO SCH ×3 (09:18→20:04)
[2019-06-02 16:25] VITALS: BP 137/69
[2019-06-02] MEDS: traZODone 50 MG TABLET. PO SCH (20:04)
--- NOTE | 2019-06-02 21:57 | PDOC ---
Exam Note: Kirby Note: Please also refer to the separate dictated note~for this date of service dictated separately. Discussed the patient with Nursing staff reviewed the chart.~Reviewed interim history and current functioning. Reviewed vital signs,~Labs/ Radiology~and current medications noted below. Continue current treatment with the changes noted in the dictated addendum note Assessment: Vital Signs/I&O: Vital Signs Date Time Temp Pulse Resp B/P (MAP) Pulse Ox O2 Delivery O2 Flow Rate FiO2 06/02/19 16:25 97.4 84 16 137/69 (91) 98 06/02/19 06:20 Room Air I & O 06/01/19 06/01/19 06/02/19 15:00 23:00 07:00 Intake Total 720 ml 360 ml 120 ml Balance 720 ml 360 ml 120 ml Labs: Laboratory Tests Test 06/02/19 07:58 06/02/19 17:03 06/02/19 19:58 Glucose (Fingerstick) 76 mg/dL (70-99) 118 mg/dL (70-99) H 150 mg/dL (70-99) H Current Medications: I have reviewed the current psychotropics carefully including drug interactions. Risk benefit ratio favors no change other than as noted in my dictated progress note. Diagnosis: Problems: (1) Anemia of chronic disease (2) Major neurocognitive disorder due to Alzheimer's disease, probable, with behavioral disturbance (3) Anxiety disorder (4) Dementia in Alzheimer's disease with delusions (5) Dementia in Alzheimer's disease with depression (6) Dementia, vascular, with delusions (7) Dementia, vascular, with depression (8) Impulse control disorder CHRISTIAN ELLIOTT MD Jun 02, 2019 21:57
[2019-06-03] MEDS: LEVOTHYROXINE 25 MCG TABLET. PO SCH (05:07)
[2019-06-03 05:51] VITALS: BP 108/67
[2019-06-03] MEDS: INSULIN LISPRO 300 UNITS/3 ML VIAL. SQ SCH ×3 (07:30→17:32)
[2019-06-03] MEDS: DIVALPROEX SODIUM 250 MG TABLET.DR. PO SCH ×3 (09:06→19:37)
[2019-06-03] MEDS: GABAPENTIN 300 MG CAPSULE. PO SCH ×3 (09:06→19:37)
[2019-06-03] MEDS: risperiDONE 0.5 MG TABLET. PO SCH ×2 (09:06→19:37)
[2019-06-03] MEDS: CARBIDOPA/LEVODOPA 25/250MG TABLET PO SCH ×4 (09:07→19:36)
[2019-06-03] MEDS: FERROUS SULFATE 325 MG TABLET. PO SCH ×2 (09:07→17:31)
[2019-06-03] MEDS: CITALOPRAM 20 MG TABLET. PO SCH (09:07)
[2019-06-03] MEDS: DONEPEZIL HCL 5 MG TABLET. PO SCH (09:07)
[2019-06-03] MEDS: FAMOTIDINE 20 MG TABLET PO SCH (09:07)
[2019-06-03] MEDS: ASCORBIC ACID 500 MG TABLET PO SCH ×2 (09:07→19:36)
[2019-06-03] MEDS: FUROSEMIDE 40 MG TABLET PO SCH (09:07)
[2019-06-03] MEDS: INSULIN GLARGINE SYRINGE. SQ SCH ×2 (09:18→19:39)
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
[2019-06-03 15:42] VITALS: BP 129/68
[2019-06-03] MEDS: traZODone 50 MG TABLET. PO SCH (19:36)
[2019-06-04] MEDS: LEVOTHYROXINE 25 MCG TABLET. PO SCH (05:07)
[2019-06-04 06:01] VITALS: BP 138/63
[2019-06-04] MEDS: INSULIN LISPRO 300 UNITS/3 ML VIAL. SQ SCH ×3 (07:30→18:04)
--- NOTE | 2019-06-04 08:04 | PDOC ---
Exam Note: Kirby Note: This is a late entry for 06/01/2019. Currently, the unit is shutdown for any admissions and discharges as directed by the Centers for Disease Control (CDC) and the [facility] ([facility]) because of Coronavirus (COVID-19) exposure on the unit. S/O: This note covers elements not covered in my initial note. The patient was reviewed with nursing staff, reviewed the chart and TeleHealth Services provided for this date for the patient. He slept 6-1/4 hours previous night. He has been wandering previous night but redirectable. ROS: No CV, , Pulmonary, Eye, ENT system symptoms on review. MSE: Oriented to himself. Insight and judgment, recent and remote memory, attention and concentration, fund of knowledge is poor consistent with his diagnosis. Labs: Reviewed. Imp: Major neurocognitive disorder Alzheimer, vascular with delusion, depression, behavioral disturbance. Anxiety disorder unspecified. Impulse control disorder unspecified. Plan: No change from initial note. We will continue the patient on Depakote 500 mg twice a day to 50 mg once a day, Celexa 20 mg a day, Aricept 5 mg a day, may increase this to 10 mg a day, gabapentin 300 mg three times a day, Risperdal 0.25 mg twice a day. Assessment: Vital Signs/I&O: Vital Signs Date Time Temp Pulse Resp B/P (MAP) Pulse Ox O2 Delivery O2 Flow Rate FiO2 06/04/19 06:01 97.8 81 18 138/63 (88) 99 06/02/19 06:20 Room Air I & O 06/03/19 06/03/19 06/04/19 15:00 23:00 07:00 Intake Total 720 ml 360 ml Balance 720 ml 360 ml Labs: Laboratory Tests Test 06/03/19 12:10 06/03/19 16:51 06/03/19 19:04 06/04/19 07:52 Glucose (Fingerstick) 212 mg/dL (70-99) H 205 mg/dL (70-99) H 176 mg/dL (70-99) H 45 mg/dL (70-99) L Current Medications: I have reviewed the current psychotropics carefully including drug interactions. Risk benefit ratio favors no change other than as noted in my dictated progress note. Diagnosis: Problems: (1) Anemia of chronic disease (2) Major neurocognitive disorder due to Alzheimer's disease, probable, with behavioral disturbance (3) Anxiety disorder (4) Dementia in Alzheimer's disease with delusions (5) Dementia in Alzheimer's disease with depression (6) Dementia, vascular, with delusions (7) Dementia, vascular, with depression (8) Impulse control disorder CHRISTIAN ELLIOTT MD Jun 04, 2019 08:04
--- NOTE | 2019-06-04 08:33 | PDOC ---
Exam Note: Kirby Note: This is a late entry for 06/02/2019. Currently, the unit is shutdown for any admissions and discharges as directed by the Centers for Disease Control (CDC) and the [facility] ([facility]) because of Coronavirus (COVID-19) exposure on the unit. S/O: This note covers elements not covered in my initial note. The patient was reviewed with nursing staff, reviewed the chart and TeleHealth Services provided for this date for the patient. He slept 4-1/4 hours. ROS: No CV, , Pulmonary, Eye, ENT system symptoms on review. MSE: Oriented to himself. Insight and judgment, recent and remote memory, attention and concentration, fund of knowledge is poor consistent with his diagnosis. Labs: Reviewed. Imp: Major neurocognitive disorder Alzheimer, vascular with delusion, depression, behavioral disturbance. Anxiety disorder unspecified. Impulse control disorder unspecified. Plan: No change from initial note. Assessment: Vital Signs/I&O: Vital Signs Date Time Temp Pulse Resp B/P (MAP) Pulse Ox O2 Delivery O2 Flow Rate FiO2 06/04/19 06:01 97.8 81 18 138/63 (88) 99 06/02/19 06:20 Room Air I & O 06/03/19 06/03/19 06/04/19 15:00 23:00 07:00 Intake Total 720 ml 360 ml Balance 720 ml 360 ml Labs: Laboratory Tests Test 06/03/19 12:10 06/03/19 16:51 06/03/19 19:04 06/04/19 07:52 Glucose (Fingerstick) 212 mg/dL (70-99) H 205 mg/dL (70-99) H 176 mg/dL (70-99) H 45 mg/dL (70-99) L Current Medications: I have reviewed the current psychotropics carefully including drug interactions. Risk benefit ratio favors no change other than as noted in my dictated progress note. Diagnosis: Problems: (1) Anemia of chronic disease (2) Major neurocognitive disorder due to Alzheimer's disease, probable, with behavioral disturbance (3) Anxiety disorder (4) Dementia in Alzheimer's disease with delusions (5) Dementia in Alzheimer's disease with depression (6) Dementia, vascular, with delusions (7) Dementia, vascular, with depression (8) Impulse control disorder CHRISTIAN ELLIOTT MD 25, 2020 08:33
[2019-06-04] MEDS: DIVALPROEX SODIUM 250 MG TABLET.DR. PO SCH ×3 (08:39→20:21)
[2019-06-04] MEDS: ASCORBIC ACID 500 MG TABLET PO SCH ×2 (08:39→20:21)
[2019-06-04] MEDS: risperiDONE 0.5 MG TABLET. PO SCH ×2 (08:39→20:21)
[2019-06-04] MEDS: CITALOPRAM 20 MG TABLET. PO SCH (08:39)
[2019-06-04] MEDS: DONEPEZIL HCL 5 MG TABLET. PO SCH (08:39)
[2019-06-04] MEDS: FAMOTIDINE 20 MG TABLET PO SCH (08:40)
[2019-06-04] MEDS: FUROSEMIDE 40 MG TABLET PO SCH (08:40)
[2019-06-04] MEDS: FERROUS SULFATE 325 MG TABLET. PO SCH ×2 (08:40→17:58)
[2019-06-04] MEDS: CARBIDOPA/LEVODOPA 25/250MG TABLET PO SCH ×4 (08:40→20:21)
[2019-06-04] MEDS: GABAPENTIN 300 MG CAPSULE. PO SCH ×3 (08:40→20:21)
[2019-06-04] MEDS: INSULIN GLARGINE SYRINGE. SQ SCH ×2 (08:44→20:27)
--- NOTE | 2019-06-04 09:01 | PDOC ---
Exam Note: Kirby Note: This is a late entry for 06/03/2019. Currently, the unit is shutdown for any admissions and discharges as directed by the Centers for Disease Control (CDC) and the [facility] ([facility]) because of Coronavirus (COVID-19) exposure on the unit. S/O: This note covers elements not covered in my initial note. The patient was reviewed with nursing staff, reviewed the chart and TeleHealth Services provided for this date for the patient. He was seen on a video-conferencing call coordinated with Rayray JEFFERS, nursing staff on the unit whose appropriately protected with personal protective equipment and mask on the unit. Per nursing report patient slept 9 hours previous night, less anxious. He has been pacing in the morning, slept in the evening. ROS: No CV, , Pulmonary, Eye, ENT system symptoms on review. MSE: Oriented to himself. Insight and judgment, recent and remote memory, attention and concentration, fund of knowledge is poor consistent with his diagnosis. Labs: Reviewed. Imp: Major neurocognitive disorder Alzheimer, vascular with delusion, depression, behavioral disturbance. Anxiety disorder unspecified. Impulse control disorder unspecified. Plan: No change from initial note. Assessment: Vital Signs/I&O: Vital Signs Date Time Temp Pulse Resp B/P (MAP) Pulse Ox O2 Delivery O2 Flow Rate FiO2 06/04/19 06:01 97.8 81 18 138/63 (88) 99 06/02/19 06:20 Room Air I & O 06/03/19 06/03/19 06/04/19 15:00 23:00 07:00 Intake Total 720 ml 360 ml Balance 720 ml 360 ml Labs: Laboratory Tests Test 06/03/19 12:10 06/03/19 16:51 06/03/19 19:04 06/04/19 07:52 Glucose (Fingerstick) 212 mg/dL (70-99) H 205 mg/dL (70-99) H 176 mg/dL (70-99) H 45 mg/dL (70-99) L Current Medications: I have reviewed the current psychotropics carefully including drug interactions. Risk benefit ratio favors no change other than as noted in my dictated progress note. Diagnosis: Problems: (1) Anemia of chronic disease (2) Major neurocognitive disorder due to Alzheimer's disease, probable, with behavioral disturbance (3) Anxiety disorder (4) Dementia in Alzheimer's disease with delusions (5) Dementia in Alzheimer's disease with depression (6) Dementia, vascular, with delusions (7) Dementia, vascular, with depression (8) Impulse control disorder CHRISTIAN ELLIOTT MD Jun 04, 2019 09:01
[2019-06-04 16:25] VITALS: BP 142/68
[2019-06-04] MEDS: traZODone 50 MG TABLET. PO SCH (20:21)
--- NOTE | 2019-06-04 23:24 | PDOC ---
Exam Note: Kirby Note: S/O: This note covers elements not covered in my initial note. Discussed with nursing staff, reviewed the chart. Discussed with Rayray JEFFERS. Previous night he was exit-seeking but did not receive any p.r.ns today. He had no behaviors. I saw the patient on the videoconferencing call. ROS: No CV, , Pulmonary, Eye, ENT system symptoms on review. MSE: Oriented to himself. Insight and judgment, recent and remote memory, attention and concentration, fund of knowledge is poor consistent with his diagnosis. Labs: Reviewed. Imp: Major neurocognitive disorder Alzheimer, vascular with delusion, depression, behavioral disturbance. Anxiety disorder unspecified. Impulse control disorder unspecified. Plan: No change from initial note. Assessment: Vital Signs/I&O: Vital Signs Date Time Temp Pulse Resp B/P (MAP) Pulse Ox O2 Delivery O2 Flow Rate FiO2 06/04/19 16:25 97.5 83 16 142/68 (92) 93 Room Air I & O 06/03/19 06/03/19 06/04/19 14:59 22:59 06:59 Intake Total 720 ml 360 ml Balance 720 ml 360 ml Labs: Laboratory Tests Test 06/04/19 07:52 06/04/19 11:48 06/04/19 16:56 06/04/19 19:20 Glucose (Fingerstick) 45 mg/dL (70-99) L 220 mg/dL (70-99) H 154 mg/dL (70-99) H 173 mg/dL (70-99) H Current Medications: Meds: Current Medications Medications (Trade) Dose Ordered Sig/Miriam Route PRN Reason Start Time Stop Time Status Last Admin Dose Admin Insulin Glargine (Lantus Syringe) 15 unit BID SQ 06/04/19 21:00 06/04/19 20:27 I have reviewed the current psychotropics carefully including drug interactions. Risk benefit ratio favors no change other than as noted in my dictated progress note. Diagnosis: Problems: (1) Anemia of chronic disease (2) Major neurocognitive disorder due to Alzheimer's disease, probable, with behavioral disturbance (3) Anxiety disorder (4) Dementia in Alzheimer's disease with delusions (5) Dementia in Alzheimer's disease with depression (6) Dementia, vascular, with delusions (7) Dementia, vascular, with depression (8) Impulse control disorder CHRISTIAN ELLIOTT MD Jun 04, 2019 23:24
[2019-06-05] MEDS: LEVOTHYROXINE 25 MCG TABLET. PO SCH (04:34)
[2019-06-05 06:36] VITALS: BP 133/69
[2019-06-05] MEDS: INSULIN LISPRO 300 UNITS/3 ML VIAL. SQ SCH ×3 (07:30→17:42)
[2019-06-05] MEDS: INSULIN GLARGINE SYRINGE. SQ SCH (09:00)
[2019-06-05] MEDS: GABAPENTIN 300 MG CAPSULE. PO SCH ×3 (09:02→20:41)
[2019-06-05] MEDS: ASCORBIC ACID 500 MG TABLET PO SCH ×2 (09:02→20:40)
[2019-06-05] MEDS: DIVALPROEX SODIUM 250 MG TABLET.DR. PO SCH ×3 (09:02→20:41)
[2019-06-05] MEDS: CITALOPRAM 20 MG TABLET. PO SCH (09:02)
[2019-06-05] MEDS: FAMOTIDINE 20 MG TABLET PO SCH (09:02)
[2019-06-05] MEDS: FERROUS SULFATE 325 MG TABLET. PO SCH ×2 (09:02→17:40)
[2019-06-05] MEDS: risperiDONE 0.5 MG TABLET. PO SCH ×2 (09:02→20:41)
[2019-06-05] MEDS: FUROSEMIDE 40 MG TABLET PO SCH (09:03)
[2019-06-05] MEDS: CARBIDOPA/LEVODOPA 25/250MG TABLET PO SCH ×4 (09:03→20:40)
[2019-06-05] MEDS: DONEPEZIL HCL 5 MG TABLET. PO SCH (09:03)
[2019-06-05 16:30] VITALS: BP 134/66
[2019-06-05] MEDS: traZODone 50 MG TABLET. PO SCH (20:40)
--- NOTE | 2019-06-06 00:04 | PDOC ---
Exam Note: Kirby Note: S/O: This note is a late entry for DOS 06/05/2019, covers elements not covered in my initial note. Discussed the patient with nursing staff, reviewed the chart. In the morning, the patient had treatment team meeting with the entire team nursing staff, social service staff and myself and TeleHealth Services pro vided via audio-visual visit in the evening coordinated with Rayray JEFFERS. Appetite 50%, sleeping 6 hours average, irritable, somewhat delusional at times. ROS: No CV, , Pulmonary, Eye, ENT system symptoms on review. MSE: Oriented to himself. Insight and judgment, recent and remote memory, attention and concentration, fund of knowledge is poor consistent with his diagnosis. Labs: Reviewed. Imp: Major neurocognitive disorder Alzheimer, vascular with delusion, depression, behavioral disturbance. Anxiety disorder unspecified. Impulse control disorder unspecified. Plan: Continue psychotropics mentioned in my note. Valproic acid level therapeutic at 51. Assessment: Vital Signs/I&O: VS - Last 72 Hours, by Label Date Time Temp Pulse Resp B/P (MAP) Pulse Ox O2 Delivery O2 Flow Rate FiO2 06/05/19 16:30 98.9 83 19 134/66 (88) 96 Room Air 06/05/19 06:36 98.5 78 20 133/69 (90) 100 Room Air 06/04/19 16:25 97.5 83 16 142/68 (92) 93 Room Air 06/04/19 06:01 97.8 81 18 138/63 (88) 99 06/03/19 15:42 97.7 72 16 129/68 (88) 99 06/03/19 05:51 98.2 84 20 108/67 (81) 98 Vital Signs Date Time Temp Pulse Resp B/P (MAP) Pulse Ox O2 Delivery O2 Flow Rate FiO2 06/05/19 16:30 98.9 83 19 134/66 (88) 96 Room Air I & O 06/05/19 06/05/19 06/06/19 15:00 23:00 07:00 Intake Total 720 ml 360 ml Balance 720 ml 360 ml Labs: Laboratory Tests Test 06/05/19 08:10 06/05/19 08:59 06/05/19 11:52 06/05/19 17:23 Glucose (Fingerstick) 40 mg/dL (70-99) L 58 mg/dL (70-99) L 276 mg/dL (70-99) H 261 mg/dL (70-99) H Test 06/05/19 19:28 Glucose (Fingerstick) 311 mg/dL (70-99) H Current Medications: I have reviewed the current psychotropics carefully including drug interactions. Risk benefit ratio favors no change other than as noted in my dictated progress note. 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
[2019-06-06] MEDS: LEVOTHYROXINE 25 MCG TABLET. PO SCH (05:26)
[2019-06-06 05:55] VITALS: BP 165/74
[2019-06-06] MEDS: DIVALPROEX SODIUM 250 MG TABLET.DR. PO SCH ×3 (08:11→20:10)
[2019-06-06] MEDS: DONEPEZIL HCL 5 MG TABLET. PO SCH (08:12)
[2019-06-06] MEDS: FERROUS SULFATE 325 MG TABLET. PO SCH ×2 (08:12→17:05)
[2019-06-06] MEDS: GABAPENTIN 300 MG CAPSULE. PO SCH ×3 (08:12→20:10)
[2019-06-06] MEDS: CITALOPRAM 20 MG TABLET. PO SCH (08:12)
[2019-06-06] MEDS: FUROSEMIDE 40 MG TABLET PO SCH (08:12)
[2019-06-06] MEDS: FAMOTIDINE 20 MG TABLET PO SCH (08:12)
[2019-06-06] MEDS: CARBIDOPA/LEVODOPA 25/250MG TABLET PO SCH ×4 (08:13→20:11)
[2019-06-06] MEDS: risperiDONE 0.5 MG TABLET. PO SCH ×2 (08:13→20:09)
[2019-06-06] MEDS: ASCORBIC ACID 500 MG TABLET PO SCH ×2 (08:13→20:09)
[2019-06-06] MEDS: INSULIN LISPRO 300 UNITS/3 ML VIAL. SQ SCH ×3 (08:15→17:09)
[2019-06-06] MEDS: INSULIN GLARGINE SYRINGE. SQ SCH (08:16)
[2019-06-06 15:59] VITALS: BP 105/65
[2019-06-06] MEDS: traZODone 50 MG TABLET. PO SCH (20:10)
[2019-06-07] MEDS: LEVOTHYROXINE 25 MCG TABLET. PO SCH (05:20)
[2019-06-07 06:18] VITALS: BP 102/55
[2019-06-07] MEDS: FERROUS SULFATE 325 MG TABLET. PO SCH ×2 (08:23→17:21)
[2019-06-07] MEDS: DIVALPROEX SODIUM 250 MG TABLET.DR. PO SCH ×3 (08:23→19:37)
[2019-06-07] MEDS: CITALOPRAM 20 MG TABLET. PO SCH (08:23)
[2019-06-07] MEDS: FUROSEMIDE 40 MG TABLET PO SCH (08:23)
[2019-06-07] MEDS: GABAPENTIN 300 MG CAPSULE. PO SCH ×3 (08:23→19:37)
[2019-06-07] MEDS: ASCORBIC ACID 500 MG TABLET PO SCH ×2 (08:24→19:38)
[2019-06-07] MEDS: risperiDONE 0.5 MG TABLET. PO SCH ×2 (08:24→19:38)
[2019-06-07] MEDS: DONEPEZIL HCL 5 MG TABLET. PO SCH (08:24)
[2019-06-07] MEDS: FAMOTIDINE 20 MG TABLET PO SCH (08:24)
[2019-06-07] MEDS: CARBIDOPA/LEVODOPA 25/250MG TABLET PO SCH ×4 (08:24→19:39)
[2019-06-07] MEDS: INSULIN LISPRO 300 UNITS/3 ML VIAL. SQ SCH ×3 (08:25→17:22)
[2019-06-07] MEDS: INSULIN GLARGINE SYRINGE. SQ SCH (09:00)
[2019-06-07 16:06] VITALS: BP 131/69
[2019-06-07] MEDS: traZODone 50 MG TABLET. PO SCH (19:38)
[2019-06-08] MEDS: LEVOTHYROXINE 25 MCG TABLET. PO SCH (05:23)
[2019-06-08 05:51] VITALS: BP 120/51
--- NOTE | 2019-06-08 08:06 | PDOC ---
Exam Note: Kirby Note: S/O: This note is a late entry for DOS 06/06/2019 covers elements not covered in my initial note. Discussed the patient with nursing staff, reviewed the chart. Discussed with Rayray JEFFERS and met the patient in the morning evening individually via audio-visual visit coordinated with Rayray JEFFERS. Sleep and appetite fair. ROS: No CV, , Pulmonary, Eye, ENT system symptoms on review. MSE: Oriented to himself. Insight and judgment, recent and remote memory, attention and concentration, fund of knowledge is poor consistent with his diagnosis. Labs: Reviewed. Imp: Major neurocognitive disorder Alzheimer, vascular with delusion, depression, behavioral disturbance. Anxiety disorder unspecified. Impulse control disorder unspecified. Plan: No change from initial note. Assessment: Vital Signs/I&O: Vital Signs Date Time Temp Pulse Resp B/P (MAP) Pulse Ox O2 Delivery O2 Flow Rate FiO2 06/08/19 05:51 97.4 72 16 120/51 (74) 98 06/07/19 16:06 Room Air I & O 06/07/19 06/07/19 06/08/19 15:00 23:00 07:00 Intake Total 720 ml 240 ml 240 ml Balance 720 ml 240 ml 240 ml Labs: Laboratory Tests Test 06/07/19 12:04 06/07/19 17:19 06/07/19 19:13 06/08/19 07:40 Glucose (Fingerstick) 230 mg/dL (70-99) H 206 mg/dL (70-99) H 159 mg/dL (70-99) H 160 mg/dL (70-99) H Current Medications: I have reviewed the current psychotropics carefully including drug interactions. Risk benefit ratio favors no change other than as noted in my dictated progress note. 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
--- NOTE | 2019-06-08 08:32 | PDOC ---
Exam Note: Kirby Note: S/O: This note is a late entry for DOS 06/07/2019 covers elements not covered in my initial note. Discussed the patient with nursing staff, reviewed the chart. Discussed with Kiya JEFFERS. Slept 6-1/4 hours. Appetite fair. Met with the patient via audio-visual visit in the evening coordinated with Sandra JEFFERS. ROS: No CV, , Pulmonary, Eye, ENT system symptoms on review. MSE: Oriented to himself. Insight and judgment, recent and remote memory, attention and concentration, fund of knowledge is poor consistent with his diagnosis. Labs: Reviewed. Imp: Major neurocognitive disorder Alzheimer, vascular with delusion, depression, behavioral disturbance. Anxiety disorder unspecified. Impulse control disorder unspecified. Plan: Unchanged from initial note. Assessment: Vital Signs/I&O: Vital Signs Date Time Temp Pulse Resp B/P (MAP) Pulse Ox O2 Delivery O2 Flow Rate FiO2 06/08/19 05:51 97.4 72 16 120/51 (74) 98 06/07/19 16:06 Room Air I & O 06/07/19 06/07/19 06/08/19 15:00 23:00 07:00 Intake Total 720 ml 240 ml 240 ml Balance 720 ml 240 ml 240 ml Labs: Laboratory Tests Test 06/07/19 12:04 06/07/19 17:19 06/07/19 19:13 06/08/19 07:40 Glucose (Fingerstick) 230 mg/dL (70-99) H 206 mg/dL (70-99) H 159 mg/dL (70-99) H 160 mg/dL (70-99) H Current Medications: I have reviewed the current psychotropics carefully including drug interactions. Risk benefit ratio favors no change other than as noted in my dictated progress note. Diagnosis: Problems: (1) Anemia of chronic disease (2) Major neurocognitive disorder due to Alzheimer's disease, probable, with behavioral disturbance (3) Anxiety disorder (4) Dementia in Alzheimer's disease with delusions (5) Dementia in Alzheimer's disease with depression (6) Dementia, vascular, with delusions (7) Dementia, vascular, with depression (8) Impulse control disorder CHRISTIAN ELLIOTT MD Jun 08, 2019 08:32
[2019-06-08] MEDS: DONEPEZIL HCL 5 MG TABLET. PO SCH (08:57)
[2019-06-08] MEDS: CITALOPRAM 20 MG TABLET. PO SCH (08:57)
[2019-06-08] MEDS: FAMOTIDINE 20 MG TABLET PO SCH (08:57)
[2019-06-08] MEDS: FERROUS SULFATE 325 MG TABLET. PO SCH ×2 (08:57→17:25)
[2019-06-08] MEDS: INSULIN LISPRO 300 UNITS/3 ML VIAL. SQ SCH ×3 (08:57→17:27)
[2019-06-08] MEDS: CARBIDOPA/LEVODOPA 25/250MG TABLET PO SCH ×4 (08:58→20:10)
[2019-06-08] MEDS: FUROSEMIDE 40 MG TABLET PO SCH (08:58)
[2019-06-08] MEDS: DIVALPROEX SODIUM 250 MG TABLET.DR. PO SCH ×3 (08:58→20:11)
[2019-06-08] MEDS: ASCORBIC ACID 500 MG TABLET PO SCH ×2 (08:58→20:09)
[2019-06-08] MEDS: GABAPENTIN 300 MG CAPSULE. PO SCH ×3 (08:58→20:09)
[2019-06-08] MEDS: risperiDONE 0.5 MG TABLET. PO SCH ×2 (08:58→20:09)
[2019-06-08] MEDS: INSULIN GLARGINE SYRINGE. SQ SCH (10:14)
[2019-06-08 16:11] VITALS: BP 127/72
[2019-06-08] MEDS: traZODone 50 MG TABLET. PO SCH (20:10)
--- NOTE | 2019-06-08 22:50 | PDOC ---
Exam Note: Kirby Note: S/O: This note covers elements not covered in my initial note. The patient was seen on TeleHealth rounds evening of 06/08/2019 coordinated by Rosy JEFFERS. Nursing report was with Roz JEFFERS. Patient slept 7 hours. ROS: No CV, , Pulmonary, Eye, ENT system symptoms on review. MSE: Patient was not abrasive, dismissive as he was over the last couple of days. In fact he was somewhat verbal, interactive, confused. Insight and judgment, recent and remote memory, attention and concentration, fund of knowledge is poor consistent with his diagnosis. Labs: Reviewed. Imp: Major neurocognitive disorder Alzheimer, vascular with delusion, depression, behavioral disturbance. Anxiety disorder unspecified. Impulse control disorder unspecified. Plan: Continue psychotropics mentioned in my current note. Adjust further as clinically indicated. Assessment: Vital Signs/I&O: Vital Signs Date Time Temp Pulse Resp B/P (MAP) Pulse Ox O2 Delivery O2 Flow Rate FiO2 06/08/19 16:11 98.2 87 16 127/72 (90) 97 Room Air I & O 06/07/19 06/07/19 06/08/19 15:00 23:00 07:00 Intake Total 720 ml 240 ml 240 ml Balance 720 ml 240 ml 240 ml Labs: Laboratory Tests Test 06/08/19 07:40 06/08/19 12:14 06/08/19 16:23 06/08/19 19:32 Glucose (Fingerstick) 160 mg/dL (70-99) H 263 mg/dL (70-99) H 271 mg/dL (70-99) H 267 mg/dL (70-99) H Current Medications: I have reviewed the current psychotropics carefully including drug interactions. Risk benefit ratio favors no change other than as noted in my dictated progress note. 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
[2019-06-09] MEDS: LEVOTHYROXINE 25 MCG TABLET. PO SCH (05:24)
[2019-06-09 05:59] VITALS: BP 162/78
[2019-06-09] MEDS: FAMOTIDINE 20 MG TABLET PO SCH (08:45)
[2019-06-09] MEDS: DIVALPROEX SODIUM 250 MG TABLET.DR. PO SCH ×3 (08:45→20:12)
[2019-06-09] MEDS: CARBIDOPA/LEVODOPA 25/250MG TABLET PO SCH ×4 (08:45→20:13)
[2019-06-09] MEDS: GABAPENTIN 300 MG CAPSULE. PO SCH ×3 (08:45→20:13)
[2019-06-09] MEDS: FERROUS SULFATE 325 MG TABLET. PO SCH ×2 (08:45→17:14)
[2019-06-09] MEDS: ASCORBIC ACID 500 MG TABLET PO SCH ×2 (08:45→20:13)
[2019-06-09] MEDS: DONEPEZIL HCL 5 MG TABLET. PO SCH (08:45)
[2019-06-09] MEDS: CITALOPRAM 20 MG TABLET. PO SCH (08:46)
[2019-06-09] MEDS: risperiDONE 0.5 MG TABLET. PO SCH ×2 (08:46→20:14)
[2019-06-09] MEDS: FUROSEMIDE 40 MG TABLET PO SCH (08:46)
[2019-06-09] MEDS: INSULIN LISPRO 300 UNITS/3 ML VIAL. SQ SCH ×3 (08:49→17:17)
[2019-06-09] MEDS: INSULIN GLARGINE SYRINGE. SQ SCH (08:50)
[2019-06-09 09:08] LABS: BASO % 1 % (0-3); EOS # 0.1 x10^3/uL (0.0-0.7); EOS % 2 % (0-3); HEMATOCRIT 23.6 % (39.0-53.0); HEMOGLOBIN 7.9 g/dL (13.0-17.5); LYMPH # 1.1 x10^3/uL (1.0-4.8); LYMPH % 18 % (24-48); MEAN CORPUSCULAR HEMOGLOBIN 34 pg (25-35); MEAN CORPUSCULAR HGB CONC 34 g/dL (31-37); MEAN CORPUSCULAR VOLUME 102 fL (79-100); MONO # 0.7 x10^3/uL (0.0-1.1); MONO % 12 % (0-9); NEUT # 4.2 x10^3uL (1.8-7.7); NEUT % 67 % (31-73); PLATELET COUNT 175 x10^3/uL (140-400); RED BLOOD COUNT 2.32 x10^6/uL (4.30-5.70); RED CELL DISTRIBUTION WIDTH 15.8 % (11.5-14.5); WHITE BLOOD COUNT 6.2 x10^3/uL (4.0-11.0)
[2019-06-09 09:21] LABS: ALBUMIN 2.8 g/dL (3.4-5.0); ALBUMIN/GLOBULIN RATIO 0.8 (1.0-1.7); CALCIUM 8.9 mg/dL (8.5-10.1); CREATININE 1.1 mg/dL (0.7-1.3); GFR 63.9; POTASSIUM 4.4 mmol/L (3.5-5.1); TOTAL BILIRUBIN 0.3 mg/dL (0.2-1.0); TOTAL PROTEIN 6.1 g/dL (6.4-8.2)
[2019-06-09 16:05] VITALS: BP 146/81
[2019-06-09] MEDS: traZODone 50 MG TABLET. PO SCH (20:13)
--- NOTE | 2019-06-09 22:55 | PDOC ---
Exam Note: Kirby Note: S/O: This note covers elements not covered in my initial note. The patient was seen on TeleHealth rounds in the evening coordinated by Rosy JEFFERS. Nursing report was with Yessenia RN. Patient slept 5-1/4 hours previous night. Per nursing report, the patient remains confused, somewhat grumpy in the morning, r esistive with p.m. medications, spit them out but took them later. ROS: No CV, , Pulmonary, Eye system symptoms on review. Reliability poor. MSE: Oriented to himself. Insight and judgment, recent and remote memory, attention and concentration, fund of knowledge is poor consistent with his diagnosis. Labs: Reviewed. Imp: Major neurocognitive disorder Alzheimer, vascular with delusion, depression, behavioral disturbance. Anxiety disorder unspecified. Impulse control disorder unspecified. Plan: Continue psychotropics mentioned in the current psychotropic medication list in this note and adjust further as clinically indicated. Assessment: Vital Signs/I&O: Vital Signs Date Time Temp Pulse Resp B/P (MAP) Pulse Ox O2 Delivery O2 Flow Rate FiO2 06/09/19 16:05 97.8 78 16 146/81 (102) 99 Room Air I & O 06/08/19 06/08/19 06/09/19 14:59 22:59 06:59 Intake Total 600 ml 480 ml Balance 600 ml 480 ml Labs: Laboratory Tests Test 06/09/19 07:38 06/09/19 09:00 06/09/19 11:51 06/09/19 17:02 Glucose (Fingerstick) 159 mg/dL (70-99) H 195 mg/dL (70-99) H 250 mg/dL (70-99) H White Blood Count 6.2 x10^3/uL (4.0-11.0) Red Blood Count 2.32 x10^6/uL (4.30-5.70) L Hemoglobin 7.9 g/dL (13.0-17.5) L Hematocrit 23.6 % (39.0-53.0) L Mean Corpuscular Volume 102 fL (79-100) H Mean Corpuscular Hemoglobin 34 pg (25-35) Mean Corpuscular Hemoglobin Concent 34 g/dL (31-37) Red Cell Distribution Width 15.8 % (11.5-14.5) H Platelet Count 175 x10^3/uL (140-400) Neutrophils (%) (Auto) 67 % (31-73) Lymphocytes (%) (Auto) 18 % (24-48) L Monocytes (%) (Auto) 12 % (0-9) H Eosinophils (%) (Auto) 2 % (0-3) Basophils (%) (Auto) 1 % (0-3) Neutrophils # (Auto) 4.2 x10^3uL (1.8-7.7) Lymphocytes # (Auto) 1.1 x10^3/uL (1.0-4.8) Monocytes # (Auto) 0.7 x10^3/uL (0.0-1.1) Eosinophils # (Auto) 0.1 x10^3/uL (0.0-0.7) Basophils # (Auto) 0.0 x10^3/uL (0.0-0.2) Sodium Level 138 mmol/L (136-145) Potassium Level 4.4 mmol/L (3.5-5.1) Chloride Level 104 mmol/L (98-107) Carbon Dioxide Level 25 mmol/L (21-32) Anion Gap 9 (6-14) Blood Urea Nitrogen 35 mg/dL (8-26) H Creatinine 1.1 mg/dL (0.7-1.3) Estimated GFR (Cockcroft-Gault) 63.9 BUN/Creatinine Ratio 32 (6-20) H Glucose Level 241 mg/dL (70-99) H Calcium Level 8.9 mg/dL (8.5-10.1) Total Bilirubin 0.3 mg/dL (0.2-1.0) Aspartate Amino Transferase (AST) 10 U/L (15-37) L Alanine Aminotransferase (ALT) 13 U/L (16-63) L Alkaline Phosphatase 61 U/L (46-116) Total Protein 6.1 g/dL (6.4-8.2) L Albumin 2.8 g/dL (3.4-5.0) L Albumin/Globulin Ratio 0.8 (1.0-1.7) L Test 06/09/19 19:17 Glucose (Fingerstick) 219 mg/dL (70-99) H Current Medications: I have reviewed the current psychotropics carefully including drug interactions. Risk benefit ratio favors no change other than as noted in my dictated progress note. 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
[2019-06-10] MEDS: LEVOTHYROXINE 25 MCG TABLET. PO SCH (05:13)
[2019-06-10 06:17] VITALS: BP 135/56
[2019-06-10] MEDS: FAMOTIDINE 20 MG TABLET PO SCH (08:34)
[2019-06-10] MEDS: GABAPENTIN 300 MG CAPSULE. PO SCH ×3 (08:34→19:55)
[2019-06-10] MEDS: FUROSEMIDE 40 MG TABLET PO SCH (08:35)
[2019-06-10] MEDS: DIVALPROEX SODIUM 250 MG TABLET.DR. PO SCH ×3 (08:35→19:55)
[2019-06-10] MEDS: risperiDONE 0.5 MG TABLET. PO SCH ×2 (08:35→19:55)
[2019-06-10] MEDS: ASCORBIC ACID 500 MG TABLET PO SCH ×2 (08:35→19:55)
[2019-06-10] MEDS: FERROUS SULFATE 325 MG TABLET. PO SCH ×2 (08:35→17:22)
[2019-06-10] MEDS: DONEPEZIL HCL 5 MG TABLET. PO SCH (08:35)
[2019-06-10] MEDS: CARBIDOPA/LEVODOPA 25/250MG TABLET PO SCH ×4 (08:35→19:55)
[2019-06-10] MEDS: CITALOPRAM 20 MG TABLET. PO SCH (08:36)
[2019-06-10] MEDS: INSULIN LISPRO 300 UNITS/3 ML VIAL. SQ SCH ×3 (08:41→17:27)
[2019-06-10] MEDS: INSULIN GLARGINE SYRINGE. SQ SCH (08:42)
[2019-06-10 15:33] VITALS: BP 112/65
[2019-06-10] MEDS: traZODone 50 MG TABLET. PO SCH (19:55)
--- NOTE | 2019-06-10 21:59 | PDOC ---
Exam Note: Kirby Note: Please also refer to the separate dictated note~for this date of service dictated separately. Discussed the patient with Nursing staff reviewed the chart.~Reviewed interim history and current functioning. Reviewed vital signs,~Labs/ Radiology~and current medications noted below. Continue current treatment with the changes noted in the dictated addendum note Assessment: Vital Signs/I&O: Vital Signs Date Time Temp Pulse Resp B/P (MAP) Pulse Ox O2 Delivery O2 Flow Rate FiO2 06/10/19 15:33 97.4 83 18 112/65 (81) 98 06/09/19 16:05 Room Air I & O 06/09/19 06/09/19 06/10/19 15:00 23:00 07:00 Intake Total 840 ml 600 ml Balance 840 ml 600 ml Labs: Laboratory Tests Test 06/10/19 08:13 06/10/19 11:43 06/10/19 17:05 06/10/19 19:16 Glucose (Fingerstick) 125 mg/dL (70-99) H 241 mg/dL (70-99) H 162 mg/dL (70-99) H 258 mg/dL (70-99) H Current Medications: I have reviewed the current psychotropics carefully including drug interactions. Risk benefit ratio favors no change other than as noted in my dictated progress note. 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
[2019-06-11] MEDS: LEVOTHYROXINE 25 MCG TABLET. PO SCH (05:57)
[2019-06-11 06:23] VITALS: BP 146/74
[2019-06-11] MEDS: INSULIN LISPRO 300 UNITS/3 ML VIAL. SQ SCH ×3 (07:30→17:19)
[2019-06-11] MEDS: GABAPENTIN 300 MG CAPSULE. PO SCH ×3 (09:00→20:08)
[2019-06-11] MEDS: INSULIN GLARGINE SYRINGE. SQ SCH (09:00)
--- NOTE | 2019-06-11 10:39 | PDOC ---
Exam Note: Kirby Note: S/O: This note is a late entry for DOS 06/10/2019 covers elements not covered in my initial note. The patient was seen on TeleHealth rounds coordinated by Yessenia JEFFERS in the evening. Discussed the patient with nursing staff, reviewed the chart. Nursing report was with Yessenia JEFFERS in the morning. Patient slept 7-3/4 hours previous night, somewhat disorganized, takes his medications whole. ROS: Ambulation independently, at times with walker. No CV, , Pulmonary, Eye system symptoms on review. MSE: Oriented to himself. Insight and judgment, recent and remote memory, attention and concentration, fund of knowledge is poor consistent with his diagnosis. Labs: Reviewed. Imp: Major neurocognitive disorder Alzheimer, vascular with delusion, depression, behavioral disturbance. Anxiety disorder unspecified. Impulse control disorder unspecified. Plan: Continue psychotropics mentioned in the current psychotropic medication list in this note and adjust further as clinically indicated. Assessment: Vital Signs/I&O: Vital Signs Date Time Temp Pulse Resp B/P (MAP) Pulse Ox O2 Delivery O2 Flow Rate FiO2 06/11/19 06:23 97.3 80 20 146/74 (98) 97 06/09/19 16:05 Room Air I & O 06/10/19 06/10/19 06/11/19 15:00 23:00 07:00 Intake Total 1080 ml 600 ml Balance 1080 ml 600 ml Labs: Laboratory Tests Test 06/10/19 11:43 06/10/19 17:05 06/10/19 19:16 06/11/19 07:18 Glucose (Fingerstick) 241 mg/dL (70-99) H 162 mg/dL (70-99) H 258 mg/dL (70-99) H 152 mg/dL (70-99) H Current Medications: I have reviewed the current psychotropics carefully including drug interactions. Risk benefit ratio favors no change other than as noted in my dictated progress note. Diagnosis: Problems: (1) Anemia of chronic disease (2) Major neurocognitive disorder due to Alzheimer's disease, probable, with behavioral disturbance (3) Anxiety disorder (4) Dementia in Alzheimer's disease with delusions (5) Dementia in Alzheimer's disease with depression (6) Dementia, vascular, with delusions (7) Dementia, vascular, with depression (8) Impulse control disorder CHRISTIAN ELLIOTT MD Jun 11, 2019 10:39
[2019-06-11] MEDS: FAMOTIDINE 20 MG TABLET PO SCH (11:29)
[2019-06-11] MEDS: CITALOPRAM 20 MG TABLET. PO SCH (11:29)
[2019-06-11] MEDS: DONEPEZIL HCL 5 MG TABLET. PO SCH (11:29)
[2019-06-11] MEDS: DIVALPROEX SODIUM 250 MG TABLET.DR. PO SCH ×3 (11:29→20:08)
[2019-06-11] MEDS: risperiDONE 0.5 MG TABLET. PO SCH ×2 (11:29→20:08)
[2019-06-11] MEDS: ASCORBIC ACID 500 MG TABLET PO SCH ×2 (11:29→20:08)
[2019-06-11] MEDS: FUROSEMIDE 40 MG TABLET PO SCH (11:30)
[2019-06-11] MEDS: FERROUS SULFATE 325 MG TABLET. PO SCH ×2 (11:33→17:14)
[2019-06-11] MEDS: CARBIDOPA/LEVODOPA 25/250MG TABLET PO SCH ×4 (11:33→20:08)
[2019-06-11 15:38] VITALS: BP 135/68
[2019-06-11] MEDS: traZODone 50 MG TABLET. PO SCH (20:08)
[2019-06-11] MEDS ORDERED: traZODone 50 MG TABLET. PO SCH (21:00)
--- NOTE | 2019-06-11 21:56 | PDOC ---
Exam Note: Kirby Note: Please also refer to the separate dictated note~for this date of service dictated separately.~Patient seen individually. Discussed the patient with Nursing staff reviewed the chart.~Reviewed interim history and current functioning. Reviewed vital signs,~Labs/ Radiology~and current medications noted below. Continue current treatment with the changes noted in the dictated addendum note Assessment: Vital Signs/I&O: Vital Signs Date Time Temp Pulse Resp B/P (MAP) Pulse Ox O2 Delivery O2 Flow Rate FiO2 06/11/19 15:38 98.7 76 16 135/68 (90) 98 06/09/19 16:05 Room Air I & O 06/10/19 06/10/19 06/11/19 15:00 23:00 07:00 Intake Total 1080 ml 600 ml Balance 1080 ml 600 ml Labs: Laboratory Tests Test 06/11/19 07:18 06/11/19 11:36 06/11/19 16:57 06/11/19 19:08 Glucose (Fingerstick) 152 mg/dL (70-99) H 150 mg/dL (70-99) H 287 mg/dL (70-99) H 275 mg/dL (70-99) H Current Medications: Meds: Current Medications Medications (Trade) Dose Ordered Sig/Miriam Route PRN Reason Start Time Stop Time Status Last Admin Dose Admin Trazodone HCl (Desyrel) 50 mg QHS PO 06/11/19 21:00 06/11/19 20:08 I have reviewed the current psychotropics carefully including drug interactions. Risk benefit ratio favors no change other than as noted in my dictated progress note. Diagnosis: Problems: (1) Anemia of chronic disease (2) Major neurocognitive disorder due to Alzheimer's disease, probable, with behavioral disturbance (3) Anxiety disorder (4) Dementia in Alzheimer's disease with delusions (5) Dementia in Alzheimer's disease with depression (6) Dementia, vascular, with delusions (7) Dementia, vascular, with depression (8) Impulse control disorder CHRISTIAN ELLIOTT MD Jun 11, 2019 21:56
[2019-06-12] MEDS: LEVOTHYROXINE 25 MCG TABLET. PO SCH (05:04)
[2019-06-12 05:48] VITALS: BP_SYST 116; BP_SYST 144; BP_DIAS 72
[2019-06-12] MEDS: FERROUS SULFATE 325 MG TABLET. PO SCH ×2 (08:43→17:09)
[2019-06-12] MEDS: ASCORBIC ACID 500 MG TABLET PO SCH ×2 (08:43→19:55)
[2019-06-12] MEDS: FAMOTIDINE 20 MG TABLET PO SCH (08:43)
[2019-06-12] MEDS: CARBIDOPA/LEVODOPA 25/250MG TABLET PO SCH ×4 (08:43→19:55)
[2019-06-12] MEDS: GABAPENTIN 300 MG CAPSULE. PO SCH ×3 (08:43→19:54)
[2019-06-12] MEDS: DIVALPROEX SODIUM 250 MG TABLET.DR. PO SCH ×3 (08:43→19:55)
[2019-06-12] MEDS: CITALOPRAM 20 MG TABLET. PO SCH (08:43)
[2019-06-12] MEDS: DONEPEZIL HCL 5 MG TABLET. PO SCH (08:43)
[2019-06-12] MEDS: risperiDONE 0.5 MG TABLET. PO SCH ×2 (08:43→19:55)
[2019-06-12] MEDS: FUROSEMIDE 40 MG TABLET PO SCH (08:43)
[2019-06-12] MEDS: INSULIN LISPRO 300 UNITS/3 ML VIAL. SQ SCH ×3 (08:54→17:13)
[2019-06-12] MEDS: INSULIN GLARGINE SYRINGE. SQ SCH (08:56)
--- NOTE | 2019-06-12 10:35 | PDOC ---
Exam Note: Kirby Note: S/O: This note is a late entry for DOS 06/11/2019 covers elements not covered in my initial note. We have had exposure of COVID-19 on the unit consequent to a staff member. The unit was on lockdown per [facility] ([facility])/Centers for Disease Control (CDC). Three patients had dev eloped fever and other symptoms for which they were screened for the COVID-19, two of which have come back negative, result for one is awaited and one other patient today is running a fever and we are doing a COVID-19 screen for this patient. Per regulations from the [facility], we are unable to admit or discharge any patients, still all of this is negative and the length of stay has affected not entirely by the clinical situation but by this directive additionally from the [facility]/CDC. The patient was seen on TeleHealth rounds coordinated by Diana JEFFERS in the evening. Discussed the patient with nursing staff, reviewed the chart. Nursing report was with Livier JEFFERS in the morning. Patient slept 5 hours previous night. Overall patient remains confused, has not been agitated, aggressive or sexually inappropriate. During the rounds today he was seated next to another elderly female patient very friendly with her but very appropriately so. ROS: No CV, , Pulmonary, Eye, ENT system symptoms on review. MSE: Oriented to himself. Insight and judgment, recent and remote memory, attention and concentration, fund of knowledge is poor consistent with his diagnosis. Labs: Reviewed. Imp: Major neurocognitive disorder Alzheimer, vascular with delusion, depressio n, behavioral disturbance. Anxiety disorder unspecified. Impulse control disorder unspecified. Plan: The patient had a disturbed night sleep previous night. We will increase the trazodone from 25 mg h.s. to 50 mg h.s. May repeat x1 for insomnia. Con tinue Aricept, Celexa, Depakote, Risperdal, gabapentin, Sinemet, and Depo- Provera unchanged for now. Adjust further as clinically indicated. Assessment: Vital Signs/I&O: Vital Signs Date Time Temp Pulse Resp B/P (MAP) Pulse Ox O2 Delivery O2 Flow Rate FiO2 06/12/19 05:48 97.3 75 18 144/72 (96) 98 06/09/19 16:05 Room Air I & O 06/11/19 06/11/19 06/12/19 15:00 23:00 07:00 Intake Total 480 ml 480 ml Balance 480 ml 480 ml Labs: Laboratory Tests Test 06/11/19 11:36 06/11/19 16:57 06/11/19 19:08 06/12/19 07:22 Glucose (Fingerstick) 150 mg/dL (70-99) H 287 mg/dL (70-99) H 275 mg/dL (70-99) H 125 mg/dL (70-99) H Current Medications: Meds: Current Medications Medications (Trade) Dose Ordered Sig/Miriam Route PRN Reason Start Time Stop Time Status Last Admin Dose Admin Trazodone HCl (Desyrel) 50 mg QHS PO 06/11/19 21:00 06/11/19 20:08 I have reviewed the current psychotropics carefully including drug interactions. Risk benefit ratio favors no change other than as noted in my dictated progress note. Diagnosis: Problems: (1) Anemia of chronic disease (2) Major neurocognitive disorder due to Alzheimer's disease, probable, with behavioral disturbance (3) Anxiety disorder (4) Dementia in Alzheimer's disease with delusions (5) Dementia in Alzheimer's disease with depression (6) Dementia, vascular, with delusions (7) Dementia, vascular, with depression (8) Impulse control disorder CHRISTIAN ELLIOTT MD Jun 12, 2019 10:35
[2019-06-12 15:54] VITALS: BP 127/60
[2019-06-12 18:57] LABS: BASO % 1 % (0-3); EOS # 0.1 x10^3/uL (0.0-0.7); EOS % 1 % (0-3); HEMATOCRIT 23.9 % (39.0-53.0); LYMPH % 12 % (24-48); MEAN CORPUSCULAR HEMOGLOBIN 34 pg (25-35); MEAN CORPUSCULAR HGB CONC 33 g/dL (31-37); MEAN CORPUSCULAR VOLUME 103 fL (79-100); MONO % 13 % (0-9); NEUT # 5.9 x10^3uL (1.8-7.7); NEUT % 74 % (31-73); PLATELET COUNT 193 x10^3/uL (140-400); RED BLOOD COUNT 2.31 x10^6/uL (4.30-5.70); RED CELL DISTRIBUTION WIDTH 16.9 % (11.5-14.5)
[2019-06-12 19:21] LABS: ALBUMIN 3.1 g/dL (3.4-5.0); ALBUMIN/GLOBULIN RATIO 0.9 (1.0-1.7); CALCIUM 8.9 mg/dL (8.5-10.1); CREATININE 1.5 mg/dL (0.7-1.3); GFR 44.7; POTASSIUM 4.2 mmol/L (3.5-5.1); TOTAL BILIRUBIN 0.2 mg/dL (0.2-1.0); TOTAL PROTEIN 6.5 g/dL (6.4-8.2)
[2019-06-12] MEDS: traZODone 50 MG TABLET. PO SCH (19:55)
--- NOTE | 2019-06-12 22:00 | PDOC ---
Exam Note: Kirby Note: Please also refer to the separate dictated note~for this date of service dictated separately.~Patient seen individually. Discussed the patient with Nursing staff reviewed the chart.~Reviewed interim history and current functioning. Reviewed vital signs,~Labs/ Radiology~and current medications noted below. Continue current treatment with the changes noted in the dictated addendum note Assessment: Vital Signs/I&O: Vital Signs Date Time Temp Pulse Resp B/P (MAP) Pulse Ox O2 Delivery O2 Flow Rate FiO2 06/12/19 18:30 98.1 06/12/19 15:54 87 16 127/60 (82) 98 06/09/19 16:05 Room Air I & O 06/11/19 06/11/19 06/12/19 15:00 23:00 07:00 Intake Total 480 ml 480 ml Balance 480 ml 480 ml Labs: Laboratory Tests Test 06/12/19 07:22 06/12/19 11:40 06/12/19 16:59 06/12/19 18:50 Glucose (Fingerstick) 125 mg/dL (70-99) H 351 mg/dL (70-99) H 266 mg/dL (70-99) H White Blood Count 8.0 x10^3/uL (4.0-11.0) Red Blood Count 2.31 x10^6/uL (4.30-5.70) L Hemoglobin 8.0 g/dL (13.0-17.5) L Hematocrit 23.9 % (39.0-53.0) L Mean Corpuscular Volume 103 fL (79-100) H Mean Corpuscular Hemoglobin 34 pg (25-35) Mean Corpuscular Hemoglobin Concent 33 g/dL (31-37) Red Cell Distribution Width 16.9 % (11.5-14.5) H Platelet Count 193 x10^3/uL (140-400) Neutrophils (%) (Auto) 74 % (31-73) H Lymphocytes (%) (Auto) 12 % (24-48) L Monocytes (%) (Auto) 13 % (0-9) H Eosinophils (%) (Auto) 1 % (0-3) Basophils (%) (Auto) 1 % (0-3) Neutrophils # (Auto) 5.9 x10^3uL (1.8-7.7) Lymphocytes # (Auto) 1.0 x10^3/uL (1.0-4.8) Monocytes # (Auto) 1.0 x10^3/uL (0.0-1.1) Eosinophils # (Auto) 0.1 x10^3/uL (0.0-0.7) Basophils # (Auto) 0.0 x10^3/uL (0.0-0.2) Sodium Level 140 mmol/L (136-145) Potassium Level 4.2 mmol/L (3.5-5.1) Chloride Level 104 mmol/L (98-107) Carbon Dioxide Level 24 mmol/L (21-32) Anion Gap 12 (6-14) Blood Urea Nitrogen 40 mg/dL (8-26) H Creatinine 1.5 mg/dL (0.7-1.3) H Estimated GFR (Cockcroft-Gault) 44.7 BUN/Creatinine Ratio 27 (6-20) H Glucose Level 249 mg/dL (70-99) H Calcium Level 8.9 mg/dL (8.5-10.1) Total Bilirubin 0.2 mg/dL (0.2-1.0) Aspartate Amino Transferase (AST) 12 U/L (15-37) L Alanine Aminotransferase (ALT) 11 U/L (16-63) L Alkaline Phosphatase 69 U/L (46-116) Total Protein 6.5 g/dL (6.4-8.2) Albumin 3.1 g/dL (3.4-5.0) L Albumin/Globulin Ratio 0.9 (1.0-1.7) L Test 06/12/19 19:12 Glucose (Fingerstick) 256 mg/dL (70-99) H Current Medications: I have reviewed the current psychotropics carefully including drug interactions. Risk benefit ratio favors no change other than as noted in my dictated progress note. Diagnosis: Problems: (1) Anemia of chronic disease (2) Major neurocognitive disorder due to Alzheimer's disease, probable, with behavioral disturbance (3) Anxiety disorder (4) Dementia in Alzheimer's disease with delusions (5) Dementia in Alzheimer's disease with depression (6) Dementia, vascular, with delusions (7) Dementia, vascular, with depression (8) Impulse control disorder CHRISTIAN ELLIOTT MD Jun 12, 2019 22:00
[2019-06-12] MEDS ORDERED: traZODone 50 MG TABLET. PO SCH (23:00)
[2019-06-12] MEDS ORDERED: traZODone 50 MG TABLET. PO PRN (23:30)
[2019-06-13] MEDS: LEVOTHYROXINE 25 MCG TABLET. PO SCH (05:24)
[2019-06-13 06:08] VITALS: BP 134/64
[2019-06-13] MEDS: DIVALPROEX SODIUM 250 MG TABLET.DR. PO SCH ×3 (08:52→20:12)
[2019-06-13] MEDS: FAMOTIDINE 20 MG TABLET PO SCH (08:52)
[2019-06-13] MEDS: INSULIN LISPRO 300 UNITS/3 ML VIAL. SQ SCH ×3 (08:52→17:40)
[2019-06-13] MEDS: ASCORBIC ACID 500 MG TABLET PO SCH ×2 (08:53→20:12)
[2019-06-13] MEDS: FERROUS SULFATE 325 MG TABLET. PO SCH ×2 (08:53→17:39)
[2019-06-13] MEDS: GABAPENTIN 300 MG CAPSULE. PO SCH ×3 (08:53→20:12)
[2019-06-13] MEDS: risperiDONE 0.5 MG TABLET. PO SCH ×2 (08:53→20:13)
[2019-06-13] MEDS: CARBIDOPA/LEVODOPA 25/250MG TABLET PO SCH ×4 (08:53→20:13)
[2019-06-13] MEDS: FUROSEMIDE 40 MG TABLET PO SCH (08:53)
[2019-06-13] MEDS: CITALOPRAM 20 MG TABLET. PO SCH (08:53)
[2019-06-13] MEDS: DONEPEZIL HCL 5 MG TABLET. PO SCH (08:53)
[2019-06-13] MEDS ORDERED: MEDROXYPROGESTERONE ACETATE 150 MG IM SCH (09:00)
[2019-06-13] MEDS ORDERED: medroxyPROGESTERone IM 150 MG/ML VIAL. IM SCH (09:00)
[2019-06-13] MEDS: INSULIN GLARGINE SYRINGE. SQ SCH (09:00)
--- NOTE | 2019-06-13 12:54 | PDOC ---
Exam Note: Kirby Note: S/O: This note is a late entry for DOS 06/12/2019 covers elements not covered in my initial note. We are still waiting on the COVID-19 screen on two patients before the unit can be opened for admissions and discharges per the [facility] ([facility])/Centers for Disease Control (CDC). Discussed the patient with nursing staff, reviewed the chart. Treatment team meeting was done in the morning with social service staff Lupe in [facility], Diana JEFFERS, nursing staff and myself. The patient was seen on audio- visual rounds in the evening with Yessenia JEFFERS. We addressed discharge plans in treatment team meeting. He has been in a [facility] and may be appropriate to go back there. His hemoglobin is dropping down to 7.9. We will defer to Dr. Coley/Dr. Arzola. He has had blood transfusion in the past. Appetite is 80%. Sleeping success average remains disorganized, not agitated. ROS: No CV, , Pulmonary, Eye system symptoms on review. MSE: Oriented to himself. Insight and judgment, recent and remote memory, attention and concentration, fund of knowledge is poor consistent with his diagnosis. Labs: Reviewed. Imp: Major neurocognitive disorder Alzheimer, vascular with delusion, depression, behavioral disturbance. Anxiety disorder unspecified. Impulse control disorder unspecified. Plan: No change from initial note. We have increased trazodone. He is sleeping better with this. Assessment: Vital Signs/I&O: Vital Signs Date Time Temp Pulse Resp B/P (MAP) Pulse Ox O2 Delivery O2 Flow Rate FiO2 06/13/19 06:08 98.4 79 18 134/64 (87) 97 06/09/19 16:05 Room Air I & O 06/12/19 06/12/19 06/13/19 14:59 22:59 06:59 Intake Total 360 ml 720 ml Balance 360 ml 720 ml Labs: Laboratory Tests Test 06/12/19 16:59 06/12/19 18:50 06/12/19 19:12 06/13/19 05:34 Glucose (Fingerstick) 266 mg/dL (70-99) H 256 mg/dL (70-99) H 113 mg/dL (70-99) H White Blood Count 8.0 x10^3/uL (4.0-11.0) Red Blood Count 2.31 x10^6/uL (4.30-5.70) L Hemoglobin 8.0 g/dL (13.0-17.5) L Hematocrit 23.9 % (39.0-53.0) L Mean Corpuscular Volume 103 fL (79-100) H Mean Corpuscular Hemoglobin 34 pg (25-35) Mean Corpuscular Hemoglobin Concent 33 g/dL (31-37) Red Cell Distribution Width 16.9 % (11.5-14.5) H Platelet Count 193 x10^3/uL (140-400) Neutrophils (%) (Auto) 74 % (31-73) H Lymphocytes (%) (Auto) 12 % (24-48) L Monocytes (%) (Auto) 13 % (0-9) H Eosinophils (%) (Auto) 1 % (0-3) Basophils (%) (Auto) 1 % (0-3) Neutrophils # (Auto) 5.9 x10^3uL (1.8-7.7) Lymphocytes # (Auto) 1.0 x10^3/uL (1.0-4.8) Monocytes # (Auto) 1.0 x10^3/uL (0.0-1.1) Eosinophils # (Auto) 0.1 x10^3/uL (0.0-0.7) Basophils # (Auto) 0.0 x10^3/uL (0.0-0.2) Sodium Level 140 mmol/L (136-145) Potassium Level 4.2 mmol/L (3.5-5.1) Chloride Level 104 mmol/L (98-107) Carbon Dioxide Level 24 mmol/L (21-32) Anion Gap 12 (6-14) Blood Urea Nitrogen 40 mg/dL (8-26) H Creatinine 1.5 mg/dL (0.7-1.3) H Estimated GFR (Cockcroft-Gault) 44.7 BUN/Creatinine Ratio 27 (6-20) H Glucose Level 249 mg/dL (70-99) H Calcium Level 8.9 mg/dL (8.5-10.1) Total Bilirubin 0.2 mg/dL (0.2-1.0) Aspartate Amino Transferase (AST) 12 U/L (15-37) L Alanine Aminotransferase (ALT) 11 U/L (16-63) L Alkaline Phosphatase 69 U/L (46-116) Total Protein 6.5 g/dL (6.4-8.2) Albumin 3.1 g/dL (3.4-5.0) L Albumin/Globulin Ratio 0.9 (1.0-1.7) L Test 06/13/19 07:58 06/13/19 11:50 Glucose (Fingerstick) 121 mg/dL (70-99) H 180 mg/dL (70-99) H Current Medications: Meds: Current Medications Medications (Trade) Dose Ordered Sig/Miriam Route PRN Reason Start Time Stop Time Status Last Admin Dose Admin Medroxyprogesterone Acetate (Depo-Provera Im) 150 mg Q2WKS IM 06/13/19 09:00 06/13/19 08:54 I have reviewed the current psychotropics carefully including drug interactions. Risk benefit ratio favors no change other than as noted in my dictated progress note. Diagnosis: Problems: (1) Anemia of chronic disease (2) Major neurocognitive disorder due to Alzheimer's disease, probable, with behavioral disturbance (3) Anxiety disorder (4) Dementia in Alzheimer's disease with delusions (5) Dementia in Alzheimer's disease with depression (6) Dementia, vascular, with delusions (7) Dementia, vascular, with depression (8) Impulse control disorder CHRISTIAN ELLIOTT MD Jun 13, 2019 12:54
[2019-06-13 16:16] VITALS: BP 132/72
[2019-06-13] MEDS: traZODone 50 MG TABLET. PO SCH (20:11)
--- NOTE | 2019-06-13 22:01 | PDOC ---
Exam Note: Kirby Note: Please also refer to the separate dictated note~for this date of service dictated separately.~Patient seen individually. Discussed the patient with Nursing staff reviewed the chart.~Reviewed interim history and current functioning. Reviewed vital signs,~Labs/ Radiology~and current medications noted below. Continue current treatment with the changes noted in the dictated addendum note Assessment: Vital Signs/I&O: Vital Signs Date Time Temp Pulse Resp B/P (MAP) Pulse Ox O2 Delivery O2 Flow Rate FiO2 06/13/19 16:16 97.2 80 20 132/72 (92) 98 06/09/19 16:05 Room Air I & O 06/12/19 06/12/19 06/13/19 15:00 23:00 07:00 Intake Total 360 ml 720 ml Balance 360 ml 720 ml Labs: Laboratory Tests Test 06/13/19 05:34 06/13/19 07:58 06/13/19 11:50 06/13/19 16:50 Glucose (Fingerstick) 113 mg/dL (70-99) H 121 mg/dL (70-99) H 180 mg/dL (70-99) H 209 mg/dL (70-99) H Test 06/13/19 19:18 Glucose (Fingerstick) 301 mg/dL (70-99) H Current Medications: Meds: Current Medications Medications (Trade) Dose Ordered Sig/Miriam Route PRN Reason Start Time Stop Time Status Last Admin Dose Admin Medroxyprogesterone Acetate (Depo-Provera Im) 150 mg Q2WKS IM 06/13/19 09:00 06/13/19 08:54 Risperidone (RisperDAL) 0.25 mg QHS PO 06/13/19 21:00 06/13/19 20:13 I have reviewed the current psychotropics carefully including drug interactions. Risk benefit ratio favors no change other than as noted in my dictated progress note. Diagnosis: Problems: (1) Anemia of chronic disease (2) Major neurocognitive disorder due to Alzheimer's disease, probable, with behavioral disturbance (3) Anxiety disorder (4) Dementia in Alzheimer's disease with delusions (5) Dementia in Alzheimer's disease with depression (6) Dementia, vascular, with delusions (7) Dementia, vascular, with depression (8) Impulse control disorder CHRISTIAN ELLIOTT MD Jun 13, 2019 22:01
[2019-06-14] MEDS: LEVOTHYROXINE 25 MCG TABLET. PO SCH (05:22)
[2019-06-14 05:51] VITALS: BP 174/64
[2019-06-14] MEDS: FERROUS SULFATE 325 MG TABLET. PO SCH ×2 (08:00→17:00)
[2019-06-14] MEDS: ASCORBIC ACID 500 MG TABLET PO SCH ×2 (09:00→20:30)
[2019-06-14] MEDS ORDERED: FUROSEMIDE 80 MG TABLET PO SCH (09:00)
[2019-06-14] MEDS: INSULIN LISPRO 300 UNITS/3 ML VIAL. SQ SCH ×3 (09:44→16:30)
--- NOTE | 2019-06-14 09:44 | RAD ---
PORTABLE CHEST 1V Clinical Indication: Temperature of 100.6 and wheezing. Comparison: None. Findings: The cardiomediastinal silhouette is normal There are diffuse interstitial opacities. Bilateral perihilar and bibasilar airspace opacities are noted. There is no pneumothorax. No pleural effusion is appreciated. Arthropathy of the shoulders. Soft tissue calcification overlying the left humerus. IMPRESSION: 1. Diffuse interstitial opacities may be edema or pneumonia. 2. There is bilateral perihilar and basilar airspace disease. Electronically signed by: Deonte Paul MD (06/14/2019 9:41 AM) [id number]
[2019-06-14] MEDS: DIVALPROEX SODIUM 250 MG TABLET.DR. PO SCH ×2 (09:45→13:58)
[2019-06-14] MEDS: FAMOTIDINE 20 MG TABLET PO SCH (09:45)
[2019-06-14] MEDS: CITALOPRAM 20 MG TABLET. PO SCH (09:45)
[2019-06-14] MEDS: DONEPEZIL HCL 5 MG TABLET. PO SCH (09:45)
[2019-06-14] MEDS: FUROSEMIDE 40 MG TABLET PO SCH (09:45)
[2019-06-14] MEDS: CARBIDOPA/LEVODOPA 25/250MG TABLET PO SCH ×4 (09:45→20:30)
[2019-06-14] MEDS: GABAPENTIN 300 MG CAPSULE. PO SCH ×3 (09:45→20:31)
[2019-06-14] MEDS: INSULIN GLARGINE SYRINGE. SQ SCH (10:08)
[2019-06-14 12:04] LABS: INFLUENZA A PATIENT NEGATIVE (NEGATIVE); INFLUENZA B PATIENT NEGATIVE (NEGATIVE)
[2019-06-14] MEDS ORDERED: FUROSEMIDE 80 MG TABLET PO ONE (12:45)
[2019-06-14 12:46] VITALS: BP 138/59
[2019-06-14 16:11] VITALS: BP 160/71
[2019-06-14] MEDS: risperiDONE 0.5 MG TABLET. PO SCH (20:30)
[2019-06-14] MEDS: traZODone 50 MG TABLET. PO SCH (20:30)
[2019-06-14] MEDS: DIVALPROEX 125 MG CAP.SPRINK PO SCH (20:31)
--- NOTE | 2019-06-14 21:46 | PDOC ---
Exam Note: Kirby Note: S/O: This note is a late entry for DOS 06/13/2019 covers elements not covered in my initial note. Discussed the patient with nursing staff, reviewed the chart. The patient was seen on audio-visual rounds in the evening with Rayray JEFFERS. Sleep and appetite is fair. ROS: No CV, , Pulmonary, Eye system symptoms on review. MSE: Oriented to himself. Insight and judgment, recent and remote memory, attention and concentration, fund of knowledge is poor consistent with his diagnosis. Labs: Reviewed. Imp: Major neurocognitive disorder Alzheimer, vascular with delusion, depression, behavioral disturbance. Anxiety disorder unspecified. Impulse control disorder unspecified. Plan: No change from initial note. Assessment: Vital Signs/I&O: Vital Signs Date Time Temp Pulse Resp B/P (MAP) Pulse Ox O2 Delivery O2 Flow Rate FiO2 06/14/19 16:11 100.1 84 18 160/71 (100) 100 06/14/19 12:46 Room Air I & O 06/13/19 06/13/19 06/14/19 15:00 23:00 07:00 Intake Total 720 ml 480 ml Balance 720 ml 480 ml Labs: Laboratory Tests Test 06/14/19 07:22 06/14/19 11:15 06/14/19 11:55 06/14/19 17:17 Glucose (Fingerstick) 206 mg/dL (70-99) H 263 mg/dL (70-99) H 124 mg/dL (70-99) H Influenza Type A (Rapid) Negative (NEGATIVE) Influenza Type B (Rapid) Negative (NEGATIVE) Group A Streptococcus Rapid Negative (NEGATIVE) Test 06/14/19 19:19 Glucose (Fingerstick) 85 mg/dL (70-99) Current Medications: Meds: Current Medications Medications (Trade) Dose Ordered Sig/Miriam Route PRN Reason Start Time Stop Time Status Last Admin Dose Admin Furosemide (Lasix) 80 mg 1X ONCE PO 06/14/19 12:45 06/14/19 12:46 DC 06/14/19 13:57 Divalproex Sodium (Depakote Sprinkles) 500 mg BID PO 06/14/19 21:00 06/14/19 20:31 I have reviewed the current psychotropics carefully including drug interactions. Risk benefit ratio favors no change other than as noted in my dictated progress note. Diagnosis: Problems: (1) Anemia of chronic disease (2) Major neurocognitive disorder due to Alzheimer's disease, probable, with behavioral disturbance (3) Anxiety disorder (4) Dementia in Alzheimer's disease with delusions (5) Dementia in Alzheimer's disease with depression (6) Dementia, vascular, with delusions (7) Dementia, vascular, with depression (8) Impulse control disorder CHRISTIAN ELLIOTT MD Jun 14, 2019 21:46
--- NOTE | 2019-06-14 21:59 | PDOC ---
Exam Note: Kirby Note: Please also refer to the separate dictated note~for this date of service dictated separately.~Patient seen individually. Discussed the patient with Nursing staff reviewed the chart.~Reviewed interim history and current functioning. Reviewed vital signs,~Labs/ Radiology~and current medications noted below. Continue current treatment with the changes noted in the dictated addendum note Assessment: Vital Signs/I&O: Vital Signs Date Time Temp Pulse Resp B/P (MAP) Pulse Ox O2 Delivery O2 Flow Rate FiO2 06/14/19 16:11 100.1 84 18 160/71 (100) 100 06/14/19 12:46 Room Air I & O 06/13/19 06/13/19 06/14/19 15:00 23:00 07:00 Intake Total 720 ml 480 ml Balance 720 ml 480 ml Labs: Laboratory Tests Test 06/14/19 07:22 06/14/19 11:15 06/14/19 11:55 06/14/19 17:17 Glucose (Fingerstick) 206 mg/dL (70-99) H 263 mg/dL (70-99) H 124 mg/dL (70-99) H Influenza Type A (Rapid) Negative (NEGATIVE) Influenza Type B (Rapid) Negative (NEGATIVE) Group A Streptococcus Rapid Negative (NEGATIVE) Test 06/14/19 19:19 Glucose (Fingerstick) 85 mg/dL (70-99) Current Medications: Meds: Current Medications Medications (Trade) Dose Ordered Sig/Miriam Route PRN Reason Start Time Stop Time Status Last Admin Dose Admin Furosemide (Lasix) 80 mg 1X ONCE PO 06/14/19 12:45 06/14/19 12:46 DC 06/14/19 13:57 Divalproex Sodium (Depakote Sprinkles) 500 mg BID PO 06/14/19 21:00 06/14/19 20:31 I have reviewed the current psychotropics carefully including drug interactions. Risk benefit ratio favors no change other than as noted in my dictated progress note. Diagnosis: Problems: (1) Anemia of chronic disease (2) Major neurocognitive disorder due to Alzheimer's disease, probable, with behavioral disturbance (3) Anxiety disorder (4) Dementia in Alzheimer's disease with delusions (5) Dementia in Alzheimer's disease with depression (6) Dementia, vascular, with delusions (7) Dementia, vascular, with depression (8) Impulse control disorder LEXI,MAN M MD Jun 14, 2019 21:59
[2019-06-14 22:00] VITALS: BP 168/71
[2019-06-15 01:48] VITALS: BP 151/65
[2019-06-15] MEDS: LEVOTHYROXINE 25 MCG TABLET. PO SCH (06:00)
[2019-06-15 06:03] VITALS: BP 154/76
[2019-06-15] MEDS: INSULIN LISPRO 300 UNITS/3 ML VIAL. SQ SCH (07:30)
[2019-06-15] MEDS: FERROUS SULFATE 325 MG TABLET. PO SCH (08:00)
[2019-06-15] MEDS: DONEPEZIL HCL 5 MG TABLET. PO SCH (09:00)
[2019-06-15] MEDS: ASCORBIC ACID 500 MG TABLET PO SCH (09:00)
[2019-06-15] MEDS: FAMOTIDINE 20 MG TABLET PO SCH (09:00)
[2019-06-15] MEDS: CARBIDOPA/LEVODOPA 25/250MG TABLET PO SCH (09:00)
[2019-06-15] MEDS: CITALOPRAM 20 MG TABLET. PO SCH (09:00)
[2019-06-15] MEDS: GABAPENTIN 300 MG CAPSULE. PO SCH (09:00)
[2019-06-15] MEDS: FUROSEMIDE 40 MG TABLET PO SCH (09:00)
[2019-06-15] MEDS: DIVALPROEX 125 MG CAP.SPRINK PO SCH (09:00)
[2019-06-15] MEDS: INSULIN GLARGINE SYRINGE. SQ SCH (09:00)
[2019-06-15] MEDS ORDERED: MAG-95 PO (10:33)
[2019-06-15] MEDS ORDERED: TRAZ-120 PO (10:46)
[2019-06-15] MEDS ORDERED: INSU100I13 SQ (10:47)
[2019-06-15] MEDS ORDERED: INSU100V SQ (10:48)
[2019-06-15] MEDS ORDERED: MAGN24003 PO (10:51)
[2019-06-15] MEDS ORDERED: METH28OI2 TP (10:53)
[2019-06-15] MEDS ORDERED: DIVALPROEX 125 MG CAP.SPRINK PO SCH (14:00)
--- NOTE | 2019-06-16 08:45 | PDOC ---
Exam Note: Kirby Note: S/O: This note is a late entry for DOS 06/14/2019 covers elements not covered in my initial note. Discussed the patient with nursing staff, reviewed the chart. The patient was seen on audio-visual rounds in the evening with Rayray RN. Nursing report was with Rayray JEFFERS. Sleep and appetite is fair. ROS: No CV, , Pulmonary, Eye system symptoms on review. MSE: Oriented to himself. Insight and judgment, recent and remote memory, at tention and concentration, fund of knowledge is poor consistent with his diagnosis. Labs: Reviewed. Imp: Major neurocognitive disorder Alzheimer, vascular with delusion, depression, behavioral disturbance. Anxiety disorder unspecified. Impulse control disorder unspecified. Plan: No change from initial note. Assessment: Vital Signs/I&O: Vital Signs Date Time Temp Pulse Resp B/P (MAP) Pulse Ox O2 Delivery O2 Flow Rate FiO2 06/15/19 08:33 103.0 06/15/19 06:03 85 20 154/76 (102) 97 06/15/19 01:48 Room Air I & O 06/15/19 06/15/19 06/16/19 15:00 23:00 07:00 Intake Total 0 ml Balance 0 ml Current Medications: I have reviewed the current psychotropics carefully including drug interactions. Risk benefit ratio favors no change other than as noted in my dictated progress note. Diagnosis: Problems: (1) Anemia of chronic disease (2) Major neurocognitive disorder due to Alzheimer's disease, probable, with behavioral disturbance (3) Anxiety disorder (4) Dementia in Alzheimer's disease with delusions (5) Dementia in Alzheimer's disease with depression (6) Dementia, vascular, with delusions (7) Dementia, vascular, with depression (8) Impulse control disorder CHRISTIAN ELLIOTT MD Jun 16, 2019 08:45
--- NOTE | 2019-06-16 09:12 | PDOC ---
Exam Note: Kirby Note: S/O: This note is a late entry for DOS 06/15/2019 covers elements not covered in my initial note. Discussed the patient with nursing staff, reviewed the chart. The patient was seen on audio-visual rounds in the evening with Sandra JEFFERS. He takes her medications crushed and we will change the Depakote to Sprinkle. Temperature 99.6 degrees to 100.6 [address] Workup per Dr. Arzola was negative for flu & strep. Chest x-ray is positive. He is complaining of shortness of breath. ROS: No CV, , Eye system symptoms on review. MSE: Oriented to himself. Insight and judgment, recent and remote memory, attention and concentration, fund of knowledge is poor consistent with his diagnosis. Labs: Reviewed. Imp: Major neurocognitive disorder Alzheimer, vascular with delusion, depression, behavioral disturbance. Anxiety disorder unspecified. Impulse control disorder unspecified. Plan: No change from initial note. Assessment: Vital Signs/I&O: Vital Signs Date Time Temp Pulse Resp B/P (MAP) Pulse Ox O2 Delivery O2 Flow Rate FiO2 06/15/19 08:33 103.0 06/15/19 06:03 85 20 154/76 (102) 97 06/15/19 01:48 Room Air I & O 06/15/19 06/15/19 06/16/19 15:00 23:00 07:00 Intake Total 0 ml Balance 0 ml Current Medications: I have reviewed the current psychotropics carefully including drug interactions. Risk benefit ratio favors no change other than as noted in my dictated progress note. Diagnosis: Problems: (1) Anemia of chronic disease (2) Major neurocognitive disorder due to Alzheimer's disease, probable, with behavioral disturbance (3) Anxiety disorder (4) Dementia in Alzheimer's disease with delusions (5) Dementia in Alzheimer's disease with depression (6) Dementia, vascular, with delusions (7) Dementia, vascular, with depression (8) Impulse control disorder CHRISTIAN ELLIOTT MD Jun 16, 2019 09:12
--- NOTE | 2019-06-26 10:40 | DS ---
DATE OF DISCHARGE: 06/15/2019 DISCHARGE SUMMARY AND PSYCHIATRIC PROGRESS This late entry date of service 06/15/2019 covers elements not covered in my initial note of 06/15/2019. I had initially dictated this summary, but cannot be found in the system and I am re-dictating. REASON FOR ADMISSION: Please refer to the admission history for details. Briefly, the patient is an 83-year-old male referred to us back from [facility] on account of worsening confusion, agitation, depression. He has a past history of alcohol abuse and had been somewhat delusional. Behaviors were deemed unmanageable at a lower level of care. He was admitted for psychiatric stabilization. SIGNIFICANT FINDINGS AND CLINICAL COURSE: Following admission, the patient was seen daily individually by myself from a psychiatric standpoint, medical followup with Dr. Coley. Adjustments were made in his psychotropics and he seemed to do better on a combination of Aricept 5 mg a day, Celexa 20 mg a day, Depakote 500 mg b.i.d. to 50 mg at 1400 with a Valproic acid level therapeutic at 51. Trazodone 25 mg at bedtime, Risperdal 0.25 mg b.i.d., gabapentin 300 mg t.i.d., Sinemet for his Parkinson's 250/25 q.i.d., Depo-Provera 150 mg IM every 2 weeks. REVIEW OF SYSTEMS: Prior to discharge, no CV, , pulmonary, eye system symptoms on review. MENTAL STATUS EXAM: Oriented to himself at times situation. Speech moderate latency, often responses monosyllabic. Abstraction fair, computation impaired, language function intact, attention span short. Mood and affect withdrawn. LABORATORY DATA: Reviewed. FINAL DIAGNOSES: Major neurocognitive disorder, early Alzheimer's, vascular with delusion, depression, behavioral disturbance, anxiety disorder, unspecified, impulse control disorder, unspecified. Rest unchanged from admission. DISCHARGE MEDICATIONS: Please refer to the [facility]AD. DISCHARGE INSTRUCTIONS: Outpatient psychiatric and medical followup at the lower level of care. Time for discharge day management greater than 30 minutes. MAN Jorge Luis ELLIOTT MD DR: DALTON/skip JOB#: [id number] / [id number]
== END 2019-06-15 12:20 | disposition short-term general hospital (02) | DRG 57 ==
LOC: GEROPSY 16:58
PROVIDERS: ADMIT Psychiatry & Neurology Psychiatry; ATTEND Psychiatry & Neurology Psychiatry
DX: G30.0 Alzheimer's disease with early onset (principal); F02.81 Dementia in other diseases classified elsewhere, unspecified severity, with behavioral disturbance; E44.1 Mild protein-calorie malnutrition; F32.9 Major depressive disorder, single episode, unspecified; G20 Parkinson's disease; D63.8 Anemia in other chronic diseases classified elsewhere; E03.9 Hypothyroidism, unspecified; E11.9 Type 2 diabetes mellitus without complications; F41.9 Anxiety disorder, unspecified; F63.9 Impulse disorder, unspecified; I10 Essential (primary) hypertension; Z66 Do not resuscitate; Z85.46 Personal history of malignant neoplasm of prostate; Z79.899 Other long term (current) drug therapy; Z68.28 Body mass index [BMI] 28.0-28.9, adult
CPT/HCPCS: 36415; 71045; 80053; 80164; 82947; 85025; 87070; 87804; 87880; J1050; J1815

== ENCOUNTER 2019-06-15 11:52 | Inpatient (IN) | payer MEDICARE ==
[2019-06-15] VITALS (9 sets, daily range): BP systolic 128–166; BP diastolic 50–102
[~2019-06-15] VITALS: Ht 177.8 cm; Wt 89.4 kg
[~2019-06-15 11:52] MED LIST changes: +INSU100V SQ; +MAG-95 PO; +MAGN24003 PO; +METH28OI2 TP
[2019-06-15] MEDS ORDERED: HYDROcodone/CHLORPHEN POLIS 5 ML SUS.ER.12H PO PRN (13:00)
[2019-06-15] MEDS ORDERED: MAG HYDROX/AL HYDROX/SIMETH 30 ML ORAL.SUSP PO PRN (13:00)
[2019-06-15] MEDS ORDERED: METOCLOPRAMIDE HCL 10 MG/2 ML VIAL. IVP PRN (13:15)
[2019-06-15] MEDS ORDERED: diphenhydrAMINE HCL 25 MG CAPSULE PO PRN (13:15)
[2019-06-15] MEDS ORDERED: ACETAMINOPHEN 325 MG TABLET PO PRN (13:15)
[2019-06-15] MEDS ORDERED: ONDANSETRON PF 4 MG/2 ML VIAL. IVP PRN (13:15)
--- NOTE | 2019-06-15 13:15 | HP ---
ADMIT DATE: 06/15/2019 CHIEF COMPLAINT: Cough and fever. HISTORY OF PRESENT ILLNESS: The patient is an 83-year-old gentleman admitted 8 days ago to the Senior [facility] Unit. For the last 2 days, he has had fevers, temperature up to 100.7 degrees Fahrenheit. Earlier this morning, his temperature was 103.0 degrees axillary. He has had a dry nonproductive cough and chest x-ray ordered yesterday showed no acute infiltrates. Because of positive exposure on the senior unit with another resident there that tested positive for COVID-19 coronavirus, the patient was transferred to the medical service, kept in potential isolation. Swabs have been ordered again today to rule out COVID-19 infection. In the meantime, we will start him empirically on antibiotics including Zithromax and Plaquenil. PAST MEDICAL HISTORY: Obtained from the old chart. He has significant dementia and cannot give much history. Significant for profound dementia. He has [facility] at a local [facility]. He has had anemia of chronic disease requiring transfusion, significant neurocognitive disorder due to Alzheimer's disease, delusions, depression, vascular and impulse control disorder. ALLERGIES: HE HAS ALLERGIES TO ATORVASTATIN AND CRESTOR. EXACT CAUSE IS UNCLEAR. CURRENT MEDICINES: Reviewed from the Senior diagnostic unit. He was taking ascorbic acid, Sinemet 25/250 1. q.i.d., Celexa, Depakote, Aricept, Pepcid, ferrous sulfate, Lasix, Neurontin, insulin Lantus and regular, Synthroid, magnesium hydroxide, Depo-Provera every 2 weeks, Risperdal and trazodone 50 mg at bedtime. SOCIAL HISTORY: He is a nonsmoker. He has smoked in the past. He does not drink any alcohol. FAMILY HISTORY: Unobtainable. REVIEW OF SYSTEMS: Significant for the last 2-3 days, he has had a dry nonproductive cough, fevers up to 103 degrees Fahrenheit. Appetite has been fair. All other systems reviewed and determined to be negative. PHYSICAL EXAMINATION: GENERAL: I saw him, this is a pleasant elderly gentleman. INITIAL VITAL SIGNS: Today showed a blood pressure of 154/76, pulse is 85 and regular, temperature as noted. Oxygen saturation 97% on room air. HEENT: Head is without trauma. Pupils are reactive. Sclerae nonicteric. Oropharynx is clear. NECK: Supple, no bruits identified. LUNGS: Coarse rhonchi bilaterally. CARDIOVASCULAR: Showed distant heart tones. No obvious gallops. Peripheral pulses are palpable full. EXTREMITIES: Showed no cyanosis, nor edema. NEUROLOGIC: Focally intact. Speech is fluent. He is pleasantly confused. LABORATORY DATA: Repeat CBC, chemistry panel and 2 blood cultures have been drawn and are pending at this time. COVID-19 coronavirus swab has been ordered and is pending at this time. ASSESSMENT: 1. An 83-year-old gentleman from the Senior diagnostic unit with upper respiratory tract infection. Because of the exposure to positive COVID-19 coronavirus, he is admitted to the hospitalist service with COVID-19 swabs pending. 2. Vascular dementia with psychosis. 3. Type 2 diabetes. 4. Impulse control disorder. 5. Hypothyroidism, on replacement. 6. Anemia of chronic disease. PLAN: 1. Admit to the ICU. 2. COVID-19 coronavirus quarantine precautions. 3. Continue some home meds. 4. Diabetic diet as tolerated. 5. I will start him on empiric Zithromax and Plaquenil. Further testing and treatment pending results of COVID-19 coronavirus swab Please note that he is a DNR per advanced directives. AUGUSTINE BERMUDEZ MD DR: DEVI/skip JOB#: [id number] / [id number] CHRISTIAN Escobar MD
[2019-06-15 13:26] LABS: BASO % 0 % (0-3); EOS % 0 % (0-3); HEMATOCRIT 22.8 % (39.0-53.0); HEMOGLOBIN 7.7 g/dL (13.0-17.5); LYMPH # 0.8 x10^3/uL (1.0-4.8); LYMPH % 15 % (24-48); MEAN CORPUSCULAR HEMOGLOBIN 34 pg (25-35); MEAN CORPUSCULAR HGB CONC 34 g/dL (31-37); MEAN CORPUSCULAR VOLUME 102 fL (79-100); MONO # 0.6 x10^3/uL (0.0-1.1); MONO % 10 % (0-9); NEUT % 75 % (31-73); PLATELET COUNT 167 x10^3/uL (140-400); RED BLOOD COUNT 2.23 x10^6/uL (4.30-5.70); RED CELL DISTRIBUTION WIDTH 16.7 % (11.5-14.5); WHITE BLOOD COUNT 5.3 x10^3/uL (4.0-11.0)
[2019-06-15 13:40] LABS: ALBUMIN 2.7 g/dL (3.4-5.0); ALBUMIN/GLOBULIN RATIO 0.8 (1.0-1.7); CALCIUM 8.7 mg/dL (8.5-10.1); CREATININE 1.3 mg/dL (0.7-1.3); GFR 52.7; MAGNESIUM 1.9 mg/dL (1.8-2.4); TOTAL BILIRUBIN 0.3 mg/dL (0.2-1.0); TOTAL PROTEIN 6.3 g/dL (6.4-8.2)
[2019-06-15] MEDS ORDERED: AZITHROMYCIN 250 MG TABLET. PO ONE (14:00)
[2019-06-15] MEDS ORDERED: DIVALPROEX SODIUM 250 MG TABLET.DR. PO SCH ×2 (14:00→21:00)
[2019-06-15] MEDS ORDERED: MAGNESIUM HYDROXIDE 2,400 MG/30 ML ORAL.SUSP. PO PRN (14:15)
--- NOTE | 2019-06-15 16:00 | NUR ---
PT admitted from [facility]. Pt has reportedly been lethargic and short of breath for a few days. When I arrived to olive picker pt on [facility], All precaution PPE was worn for possible COVID. PT was lethargic and sitting in bed on my arrival. PT would respond at times and was difficult to keep aroused and engaged. PT with much assistance was transported to wheel chair. Report was given by Cornell Mcneill that many labs and tests were ordered, but not completed yet. She gave me all the tubes and covid test that needed to be done. Was not given belonging list or intake form when requested for patient. Pt does have 3 bags of belongings. When brought to ICU , myself and Nabil Ruiz dawned in proper PPE for possible covid pt started another IV and katelynn blood. COVID test was performed and sent to lab per proper protocol. PT was incontinent and soaked, Stanford placed for accurate I and O's. PT does have some erythema when foreskin pulled back and possible yeast. When IV was started pt did yell ''stop bitch''. Other lovell pt has been cooperative and confused. Pt was febrile and tylenol given. PT does take pill crushed. Will continue to monitor. Sander JEFFERS
[2019-06-15] MEDS: CARBIDOPA/LEVODOPA 25/250MG TABLET PO SCH ×3 (16:08→20:33)
[2019-06-15] MEDS: FERROUS SULFATE 325 MG TABLET. PO SCH (17:00)
[2019-06-15 17:51] LABS: BILIRUBIN,URINE NEG (NEG); CLARITY,URINE CLEAR; COLOR,URINE YELLOW; GLUCOSE,URINE NEG (NEG)
[2019-06-15 17:52] LABS: BACTERIA,URINE FEW /HPF (0-FEW); NITRITE,URINE NEG (NEG); OVAL FAT BODIES,URINE PRESENT /HPF; SQUAMOUS EPITHELIAL CELL,UR OCC /LPF; UROBILINOGEN,URINE 0.2 mg/dL (0.2 mg/dL); WBC,URINE OCC /HPF (0-4)
[2019-06-15] MEDS: risperiDONE 0.25 MG TABLET. PO SCH (20:33)
[2019-06-15] MEDS: HYDROXYCHLOROQUINE (PROGRAM) 200 MG TABLET PO SCH (20:33)
[2019-06-15] MEDS: DIVALPROEX 125 MG CAP.SPRINK PO SCH (20:33)
[2019-06-15] MEDS: ACETAMINOPHEN 325 MG TABLET PO PRN (20:47)
[2019-06-16] VITALS (18 sets, daily range): BP systolic 128–166; BP diastolic 50–70
[2019-06-16] MEDS: ACETAMINOPHEN 325 MG TABLET PO PRN ×4 (03:01→20:15)
[2019-06-16 05:13] LABS: BASO % 0 % (0-3); EOS % 0 % (0-3); HEMATOCRIT 20.7 % (39.0-53.0); LYMPH # 0.6 x10^3/uL (1.0-4.8); LYMPH % 12 % (24-48); MEAN CORPUSCULAR HEMOGLOBIN 35 pg (25-35); MEAN CORPUSCULAR HGB CONC 34 g/dL (31-37); MEAN CORPUSCULAR VOLUME 103 fL (79-100); MONO # 0.6 x10^3/uL (0.0-1.1); MONO % 12 % (0-9); NEUT # 3.9 x10^3uL (1.8-7.7); NEUT % 76 % (31-73); PLATELET COUNT 156 x10^3/uL (140-400); RED BLOOD COUNT 2.01 x10^6/uL (4.30-5.70); WHITE BLOOD COUNT 5.2 x10^3/uL (4.0-11.0)
[2019-06-16 05:25] LABS: ALBUMIN 2.4 g/dL (3.4-5.0); ALBUMIN/GLOBULIN RATIO 0.7 (1.0-1.7); CALCIUM 8.6 mg/dL (8.5-10.1); CREATININE 1.3 mg/dL (0.7-1.3); GFR 52.7; POTASSIUM 3.8 mmol/L (3.5-5.1); TOTAL BILIRUBIN 0.2 mg/dL (0.2-1.0); TOTAL PROTEIN 5.9 g/dL (6.4-8.2)
[2019-06-16 05:54] LABS: % BANDS 2 % (0-9); % LYMPHS 9 % (24-48); % MONOS 9 % (0-10); % SEGS 80 % (35-66); NUCLEATED RBC 2
[2019-06-16 05:55] LABS: PLT ESTIMATE ADEQUATE (ADEQUATE)
--- NOTE | 2019-06-16 06:33 | NUR ---
Pt. remained febrile throughout the night and received Tylenol x2. Had moderate sized BM. Low Hgb will supplement with ordered iron.
[2019-06-16] MEDS: HYDROXYCHLOROQUINE (PROGRAM) 200 MG TABLET PO SCH ×2 (07:52→21:30)
[2019-06-16] MEDS: FAMOTIDINE 20 MG TABLET PO SCH (07:53)
[2019-06-16] MEDS: DIVALPROEX 125 MG CAP.SPRINK PO SCH ×3 (07:53→20:04)
[2019-06-16] MEDS: FUROSEMIDE 40 MG TABLET PO SCH (07:53)
[2019-06-16] MEDS: CITALOPRAM 20 MG TABLET. PO SCH (07:53)
[2019-06-16] MEDS ORDERED: IRON SUCROSE COMPLEX 400 MG in IV NORMAL SALINE 250ML 250 ML IV ONE (08:00)
[2019-06-16] MEDS: FERROUS SULFATE 325 MG TABLET. PO SCH ×2 (08:00→17:07)
[2019-06-16] MEDS: INSULIN GLARGINE SYRINGE. SQ SCH (08:09)
[2019-06-16] MEDS: CARBIDOPA/LEVODOPA 25/250MG TABLET PO SCH ×4 (08:16→20:04)
[2019-06-16] MEDS: DONEPEZIL HCL 5 MG TABLET. PO SCH (08:16)
--- NOTE | 2019-06-16 11:21 | NUR ---
Pt reporting that he 'feels like shit'. Pt did come back today positive for covid19. DR Arzola is calling his contact of point right now. PT is unable to verbalize understanding of poc. Sander JEFFERS
[2019-06-16] MEDS ORDERED: IRON SUCROSE COMPLEX 300 MG in IV NORMAL SALINE 250ML 250 ML IV ONE (12:00)
--- NOTE | 2019-06-16 12:02 | NUR ---
AMADOR left msg. for Nola, [employer] at [place], to discuss pt. status. Addendum: 06/17/19 at 1006 by KINGSLEY ENGLISH AMADOR did receive a call back from Nola but she was unavailable when AMADOR attempted to return her call. AMADOR informed staff pt. was transferred downstairs and staff was given the [facility] and [facility] for transfer, as no other information was supplied at this time.
--- NOTE | 2019-06-16 12:31 | PN ---
DATE: 06/16/2019 ATTENDING PHYSICIAN: Dr. Bermudez. SUBJECTIVE: Very weak, fairly responsive, but remained confused. OBJECTIVE FINDINGS: VITAL SIGNS: His maximal temperature this morning was 101.5 degrees Fahrenheit, blood pressure is 145/63, pulse is 84 and regular. Interestingly enough, his room air saturations are 95%. He has not required any supplemental oxygen. HEENT: Head is without trauma. Pupils are reactive. Sclerae is nonicteric. Oropharynx clear. No lesions. NECK: Supple. LUNGS: Minimal rhonchi in the upper airways, minimal wheezing. CARDIOVASCULAR: Showed regular heart tones. No obvious gallops. Peripheral pulses are palpable and full. ABDOMEN: Soft, scaphoid, nontender. EXTREMITIES: Showed no cyanosis or edema. NEUROLOGIC FINDINGS: The patient is alert. He has parkinsonian tremors bilaterally, a little bit more prominent on the right side. LABORATORY DATA: His COVID-19 coronavirus swab came back positive. His hemoglobin this morning has dropped to 7.0 g/dL with white count of 5200. Chemistry panel fairly within range with a creatinine of 1.3 mg/dL, nonfasting blood sugar 213. ASSESSMENT: 1. An 83-year-old gentleman with COVID-19 positive coronavirus infection. 2. Bronchitis with probable early pneumonia. 3. Type 2 diabetes. 4. Vascular dementia. 5. Hypothyroidism, on replacement. 6. Anemia of chronic disease. PLAN: 1. Keep in ICU. 2. COVID-19 coronavirus precautions. 3. Continue Plaquenil and Zithromax as ordered. 4. Addition of IV Rocephin for bacterial coverage. 5. Regarding the hemoglobin, I recommended a trial of Venofer intravenously to help with bone marrow synthesis of red blood cells. 6. He remains DNR per advanced directives. AUGUSTINE BERMUDEZ MD DR: DEVI/skip JOB#: [id number] / [id number] Dr. Brijesh Gilmore,
[2019-06-16] MEDS ORDERED: ALBUTEROL SULFATE 8GM INHALER. INH PRN (16:30)
[2019-06-16] MEDS: AZITHROMYCIN 250 MG TABLET. PO SCH (20:05)
[2019-06-16] MEDS: risperiDONE 0.25 MG TABLET. PO SCH (20:05)
[2019-06-17] VITALS (22 sets, daily range): BP systolic 120–178; BP diastolic 50–80
--- NOTE | 2019-06-17 01:09 | NUR ---
Pt has be febrile temp between 100-100.6, PRN Tylenol has been given with evening medications. Pt does not respond to assessment question, but does curse at staff while attempting cares. Pt takes medications crushed in pudding with encouragement.
[2019-06-17] MEDS: ACETAMINOPHEN 325 MG TABLET PO PRN ×3 (02:54→20:19)
[2019-06-17 06:46] LABS: BASO % 0 % (0-3); EOS % 0 % (0-3); HEMATOCRIT 22.4 % (39.0-53.0); HEMOGLOBIN 7.5 g/dL (13.0-17.5); LYMPH # 0.8 x10^3/uL (1.0-4.8); LYMPH % 13 % (24-48); MEAN CORPUSCULAR HEMOGLOBIN 35 pg (25-35); MEAN CORPUSCULAR HGB CONC 34 g/dL (31-37); MEAN CORPUSCULAR VOLUME 102 fL (79-100); MONO # 0.5 x10^3/uL (0.0-1.1); MONO % 9 % (0-9); NEUT # 4.4 x10^3uL (1.8-7.7); NEUT % 77 % (31-73); PLATELET COUNT 158 x10^3/uL (140-400); RED BLOOD COUNT 2.19 x10^6/uL (4.30-5.70); RED CELL DISTRIBUTION WIDTH 16.6 % (11.5-14.5); WHITE BLOOD COUNT 5.7 x10^3/uL (4.0-11.0)
[2019-06-17 07:01] LABS: ALBUMIN 2.5 g/dL (3.4-5.0); ALBUMIN/GLOBULIN RATIO 0.7 (1.0-1.7); C REACTIVE PROTEIN 83.6 mg/L (0-3.3); CALCIUM 8.8 mg/dL (8.5-10.1); CREATININE 1.4 mg/dL (0.7-1.3); GFR 48.4; POTASSIUM 3.9 mmol/L (3.5-5.1); TOTAL BILIRUBIN 0.2 mg/dL (0.2-1.0); TOTAL PROTEIN 6.3 g/dL (6.4-8.2)
[2019-06-17] MEDS: FERROUS SULFATE 325 MG TABLET. PO SCH ×2 (08:00→17:00)
[2019-06-17] MEDS: INSULIN GLARGINE SYRINGE. SQ SCH (09:00)
[2019-06-17] MEDS: CARBIDOPA/LEVODOPA 25/250MG TABLET PO SCH ×4 (09:00→20:19)
[2019-06-17] MEDS: FAMOTIDINE 20 MG TABLET PO SCH (09:00)
[2019-06-17] MEDS: DONEPEZIL HCL 5 MG TABLET. PO SCH (09:00)
[2019-06-17] MEDS: DIVALPROEX 125 MG CAP.SPRINK PO SCH ×3 (09:00→20:18)
[2019-06-17] MEDS: FUROSEMIDE 40 MG TABLET PO SCH (09:00)
[2019-06-17] MEDS: CITALOPRAM 20 MG TABLET. PO SCH (09:00)
[2019-06-17] MEDS: HYDROXYCHLOROQUINE (PROGRAM) 200 MG TABLET PO SCH ×2 (09:00→20:18)
--- NOTE | 2019-06-17 09:37 | PN ---
DATE: 06/17/2019 SUBJECTIVE: The patient is very hard of hearing. He is in no apparent respiratory distress. He has the tremors or Parkinson's that is evident. He does not appear dyspneic nor uncomfortable. OBJECTIVE: VITAL SIGNS: His oxygen saturations are greater than 90% on room air, T-max this morning was 101.5 degrees Fahrenheit again. His blood pressure is 141/71, pulse is 80 and regular. HEENT: Head is without trauma. Pupils are reactive. Oropharynx clear. NECK: Supple, no bruits. LUNGS: Minimal rhonchi at bases. CARDIOVASCULAR: Showed distant heart tones. No obvious gallops. Peripheral pulses are palpable and full. ABDOMEN: Soft, nontender, no organomegaly. Bowel sounds are normoactive. EXTREMITIES: Showed no edema. NEUROLOGIC: The patient is pleasantly confused. He is hard of hearing. He has no focal neurologic deficits. PERTINENT LABORATORY DATA: Reviewed yesterday. ASSESSMENT: 1. An 83-year-old gentleman with COVID-19 positive coronavirus infection definite bronchitis. 2. Bronchitis with possible early pneumonia. 3. Type 2 diabetes, controlled. 4. Vascular dementia. 5. Hypothyroidism, on replacement. 6. Anemia of chronic disease. 7. Bacteremia. He now has 3 of 4 occult blood cultures positive for gram-positive cocci. He is covered so far. We will await the results of the ID and sensitivity to tailor antibiotic treatment for bacterial infection. PLAN: 1. Keep in ICU. 2. Await culture results. 3. Continue Rocephin. 4. Continue Zithromax and Plaquenil for COVID-19 infection. 5. He remains a DNR per advanced directives. 6. Followup CBC regarding pneumonia. He did receive some Venofer yesterday. AUGUSTINE BERMUDEZ MD DR: DEVI/skip JOB#: [id number] / [id number]
[2019-06-17] MEDS ORDERED: IRON SUCROSE COMPLEX 200 MG in IV NORMAL SALINE 100ML 100 ML IV ONE (10:00)
[2019-06-17] MEDS: AZITHROMYCIN 250 MG TABLET. PO SCH (20:18)
[2019-06-17] MEDS: risperiDONE 0.25 MG TABLET. PO SCH (20:18)
[2019-06-18] VITALS (17 sets, daily range): BP systolic 119–180; BP diastolic 55–76
[2019-06-18] MEDS: ACETAMINOPHEN 325 MG TABLET PO PRN ×3 (03:09→21:37)
[2019-06-18] MEDS: FAMOTIDINE 20 MG TABLET PO SCH (07:52)
[2019-06-18] MEDS: HYDROXYCHLOROQUINE (PROGRAM) 200 MG TABLET PO SCH ×2 (07:52→21:15)
[2019-06-18] MEDS: CARBIDOPA/LEVODOPA 25/250MG TABLET PO SCH ×4 (07:52→21:15)
[2019-06-18] MEDS: FERROUS SULFATE 325 MG TABLET. PO SCH ×2 (07:52→17:09)
[2019-06-18] MEDS: DIVALPROEX 125 MG CAP.SPRINK PO SCH ×4 (07:52→21:15)
[2019-06-18] MEDS: FUROSEMIDE 40 MG TABLET PO SCH (07:53)
[2019-06-18] MEDS: CITALOPRAM 20 MG TABLET. PO SCH (07:53)
[2019-06-18] MEDS: DONEPEZIL HCL 5 MG TABLET. PO SCH (07:53)
[2019-06-18] MEDS: INSULIN GLARGINE SYRINGE. SQ SCH (09:00)
--- NOTE | 2019-06-18 13:55 | NUR ---
IP: patient test + COVID-19, requires contact and airborne precautions.
--- NOTE | 2019-06-18 18:32 | PN ---
DATE: 06/18/2019 SUBJECTIVE: The patient is resting, slightly propped up in bed, in no apparent distress, awake, alert, but confused and mostly nonverbal. The nursing staff said that he is only on 2 L of oxygen by nasal cannula, in fact, he is ____ oxygen saturation 91%. He is not eating or drinking. PHYSICAL EXAMINATION: GENERAL: When I examined him, he looked pale. No jaundice, cyanosis or thyromegaly. No jugular venous distention or limb edema. VITAL SIGNS: His heart rate was 82, blood pressure 158/64, temperature was 97.1, respiratory rate was 16, and oxygen saturation was 92%. HEAD, EYES, EARS, NOSE AND THROAT: Normocephalic, atraumatic. NECK: Supple. HEART: Normal first and second sounds. No gallop or murmur. CHEST: Clear to auscultation. No crepitation or rhonchi. ABDOMEN: Distended, soft, nontender. NEUROLOGIC: He was awake, alert, opens eyes, tracks, but mostly nonverbal. All his cranial nerves are intact. He has parkinsonian tremors. He is mostly bedbound. His intake over the last 24 hours was 965, output was 1100. As of yesterday, his white cell count was 5700, hemoglobin 7.5, hematocrit 22, MCV 102 and platelet count of 158,000. His serum sodium was 143, potassium 3.9, chloride 107, bicarbonate 25, anion gap of 11, BUN 34, creatinine was 1.4, estimated GFR was 48 mL per minute. His glucose 189, calcium was 8.8. Total bilirubin, AST, ALT, alkaline phosphatase were normal. Total protein was 6.3, albumin was 2.5. His urinalysis was essentially unremarkable. His COVID-19 by PCR was positive. ASSESSMENT: 1. Acute bronchitis due to COVID-19 infection. 2. Possible early pneumonia. 3. Type 2 diabetes mellitus, well controlled. 4. Vascular dementia. 5. Hypothyroidism, on replacement. 6. Anemia of chronic disease. 7. The patient has also Gram-positive bacteremia. His blood cultures showed Gram-positive cocci in clusters in 3 out of 4 bottles. The identification and sensitivity is still pending at the time of this dictation. PLAN: To continue with hydroxychloroquine 200 mg twice a day. Continue with ceftriaxone 1 g IV once a day. Continue with all other medication. Once we have the culture and sensitivity, we can de-escalate antibiotics. LAURITA CHRISTIAN MD DR: DESTINEY/skip JOB#: [id number] / [id number]
--- NOTE | 2019-06-18 18:59 | NUR ---
pt not responding as well today. He does not answer any questions when answered and not wanting to eat meals today. Pt will take small bites if fed and small sips of water. Not much intake today and only 400 cc out over 12 hours of castillo. Will continue to monitor.Mony JEFFERS
--- NOTE | 2019-06-18 19:48 | RAD ---
CHEST AP ONLY 06/18/2019 6:57 PM INDICATION: COVID positive COMPARISON: 06/14/2019 TECHNIQUE: Portable frontal view of the chest is provided. FINDINGS: The cardiomediastinal silhouette is similar in appearance. Increase interstitial changes are noted at the lung bases. There are no significant pleural effusions. There is no pulmonary vascular congestion. No pneumothorax. IMPRESSION: Increased interstitial changes are identified the lung bases which may represent subsegmental atelectasis versus infiltrate. Electronically signed by: Kierra Kern MD (06/18/2019 7:45 PM) PRASHANTH
[2019-06-18] MEDS ORDERED: hydrALAZINE 20 MG/ML VIAL. IV PRN (20:45)
[2019-06-18] MEDS ORDERED: cloNIDine TTS-2 1 PATCH PATCH TD SCH (21:00)
[2019-06-18] MEDS: AZITHROMYCIN 250 MG TABLET. PO SCH (21:15)
[2019-06-18] MEDS: LACTOBACILLUS RHAMNOSUS GG 1 CAPSULE. PO SCH (21:15)
[2019-06-18] MEDS: risperiDONE 0.25 MG TABLET. PO SCH (21:15)
[2019-06-18] MEDS: IV NORMAL SALINE 1,000ML 1,000 ML IV SCH (21:17)
[2019-06-19] VITALS (9 sets, daily range): BP systolic 138–181; BP diastolic 56–84
[2019-06-19] MEDS: ACETAMINOPHEN 325 MG TABLET PO PRN ×2 (03:48→09:03)
--- NOTE | 2019-06-19 05:42 | NUR ---
Pt remained febrile throughout the shift with two doses of tylenol given. Pt was responsive to the first dose which brought temp down to 99.9 orally. Waiting for recheck of temp after last dose given. pt continues with tremors. Remains on RA. pt is non verbal and does not follow commands. pt started on clonidine patch last night and also prn hydralazine IV, have given hydralazine once. pt continues with maintenance IVFs.
[2019-06-19] MEDS: DONEPEZIL HCL 5 MG TABLET. PO SCH (09:03)
[2019-06-19] MEDS: CITALOPRAM 20 MG TABLET. PO SCH (09:03)
[2019-06-19] MEDS: CARBIDOPA/LEVODOPA 25/250MG TABLET PO SCH (09:03)
[2019-06-19] MEDS: HYDROXYCHLOROQUINE (PROGRAM) 200 MG TABLET PO SCH (09:03)
[2019-06-19] MEDS: FAMOTIDINE 20 MG TABLET PO SCH (09:03)
[2019-06-19] MEDS: LACTOBACILLUS RHAMNOSUS GG 1 CAPSULE. PO SCH (09:03)
[2019-06-19] MEDS: DIVALPROEX 125 MG CAP.SPRINK PO SCH (09:03)
[2019-06-19] MEDS: FERROUS SULFATE 325 MG TABLET. PO SCH (09:04)
[2019-06-19] MEDS: FUROSEMIDE 40 MG TABLET PO SCH (09:04)
[2019-06-19] MEDS: INSULIN GLARGINE SYRINGE. SQ SCH (09:08)
[2019-06-19] MEDS: IV NORMAL SALINE 1,000ML 1,000 ML IV SCH (09:09)
[2019-06-19] MEDS ORDERED: ACETAMINOPHEN 650 MG SUPP.RECT. PR PRN (10:30)
--- NOTE | 2019-06-19 11:50 | NUR ---
AMADOR contacted pt. DPOA, Zev, to discuss options for pt. Zev feels hospice may be a good idea but wanted more details from the CM. AMADOR gave Zev the CM extension, to which he said he would make contact with her.
--- NOTE | 2019-06-19 14:30 | NUR ---
Patient is non verbal and is refusing to eat or drink or take any medications orally. Patient is still febrile so Tylenol was administered rectally since patient is refusing to take anything orally at this time. Case management was consulted and the decision was made to recommend patient for Hospice services. Jesus was consulted for Hospice services and currently awaiting for them to come to unit and assess patient.
--- NOTE | 2019-06-19 16:48 | NUR ---
NSG NOTE; DISCHARGED TO INPATIENT HOSPICE PT CONDITIONED WORSENING. DR CHRISTIAN STATES PT HAS MANY COMORBIDITIES AND WILL NOT LIKELY RECOVER FROM HIS CURRENT COVID19 ILLNESS. PT'S DPOA TATIANA GARCIA CALLED BY DENISSE PAREKH CM AND RITIKA RN WITH [facility]. MR GARCIA GIVES CONSENT FOR PT TO MOVE TO HOSPICE STATUS. RITIKA RN WITH [facility] HERE IN CONSULTATION WITH DR CHRISTIAN AND GIVES ORDERS FOR INPATIENT HOSPICE ADMISSION. DISCHARGED AT 1648 FROM ICU INPATIENT STATUS TO HOSPICE IN SAME ROOM WHICH IN ISOLATION FOR COVID19
--- NOTE | 2019-06-20 17:14 | DS ---
DATE OF DISCHARGE: 06/19/2019 HOSPITAL COURSE: The patient is an 83-year-old male patient, who was transferred from [facility] on account of fever up to 103 Fahrenheit. He has also dry, nonproductive cough. Initially, chest x-ray was unremarkable; however, there is a potential exposure at the [facility] with another resident tested positive for COVID-19 and therefore he was transferred to the medical service, kept on potential isolation and eventually turned out to be positive. He was started empirically on Zithromax and Plaquenil. Unfortunately, he has severe profound dementia with worsening shortness of breath and marked hypoxemia and therefore, a decision was made to discharge him to inpatient hospice care to continue on comfort care. PHYSICAL EXAMINATION: GENERAL: When I saw him prior to discharge, he was resting slightly propped up in bed, slightly tachypneic, but there is no pallor, jaundice, cyanosis or thyromegaly. No jugular venous distention. No limb edema. VITAL SIGNS: His heart rate was 87, blood pressure was 164/64, temperature was 97.9, respiratory rate was 17 and oxygen saturation was 95%. HEAD, EYES, EARS, NOSE AND THROAT: Showed normocephalic, atraumatic. NECK: Supple. HEART: Showed normal first and second heart sounds. No gallop or murmur. CHEST: Clear to auscultation. No crepitation or rhonchi. ABDOMEN: Distended, soft, nontender. NEUROLOGIC: He is extremely demented. DISCHARGE MEDICATIONS: The patient was discharged to inpatient hospice care to continue on morphine sulfate 4 mg IV hourly, lorazepam 2 mg IV hourly, scopolamine 1.5 mg patch q.72 hours, hydralazine 10 mg IV every 4 hours, lorazepam 0.5 mg every 6 hours, bisacodyl 10 mg rectally daily and acetaminophen 650 mg every 4 hours. FINAL DISCHARGE DIAGNOSES: 1. Acute pneumonia due to COVID-19 infection. 2. Profound Dementia. 3. Acute hypoxic respiratory failure. 4. Hypothyroidism. 5. Anemia. 6. Type 2 diabetes mellitus. LAURITA CHRISTIAN MD DR: DESTINEY/skip JOB#: [id number] / [id number]
== END 2019-06-19 16:48 | disposition hospice, inpatient (51) | DRG 177 ==
LOC: ICU 12:20
PROVIDERS: ADMIT Hospitalist; ATTEND Hospitalist
DX: U07.1 COVID-19 (principal); J12.89 Other viral pneumonia; J96.01 Acute respiratory failure with hypoxia; R78.81 Bacteremia; B96.89 Other specified bacterial agents as the cause of diseases classified elsewhere; D63.8 Anemia in other chronic diseases classified elsewhere; E03.9 Hypothyroidism, unspecified; E11.9 Type 2 diabetes mellitus without complications; F01.50 Vascular dementia, unspecified severity, without behavioral disturbance, psychotic disturbance, mood disturbance, and anxiety; F02.80 Dementia in other diseases classified elsewhere, unspecified severity, without behavioral disturbance, psychotic disturbance, mood disturbance, and anxiety; F63.9 Impulse disorder, unspecified; G20 Parkinson's disease; G30.9 Alzheimer's disease, unspecified; H91.90 Unspecified hearing loss, unspecified ear; J06.9 Acute upper respiratory infection, unspecified; J20.8 Acute bronchitis due to other specified organisms; Z51.5 Encounter for palliative care; Z87.891 Personal history of nicotine dependence; F32.9 Major depressive disorder, single episode, unspecified; F22 Delusional disorders; J98.8 Other specified respiratory disorders; Z88.8 Allergy status to other drugs, medicaments and biological substances; Z79.899 Other long term (current) drug therapy; Z66 Do not resuscitate
CPT/HCPCS: 36415; 71045; 80053; 81001; 82947; 83605; 83735; 83880; 85007; 85025; 86140; 87040; 87077; 87205; 93005; J0360; J0456; J0696; J1756; J1815; J7050; J7613; J7030

== ENCOUNTER 2019-06-19 12:18 | Inpatient (IN) | payer OTHER ==
[~2019-06-19] VITALS: Ht 177.8 cm; Wt 87.1 kg
[2019-06-19] MEDS ORDERED: BISACODYL 10 MG SUPP.RECT PR PRN (17:15)
[2019-06-19] MEDS: ACETAMINOPHEN 650 MG SUPP.RECT. PR PRN ×2 (18:03→23:36)
[2019-06-19] MEDS ORDERED: SCOPOLAMINE 1.5MG PATCH. TD SCH (19:00)
[2019-06-19 20:00] VITALS: BP 162/67
[2019-06-19 22:05] VITALS: BP 171/76
[2019-06-19] MEDS: hydrALAZINE 20 MG/ML VIAL. IV PRN (22:25)
[2019-06-20 00:12] VITALS: BP 152/74
[2019-06-20 03:01] VITALS: BP 151/71
[2019-06-20] MEDS: MORPHINE SULFATE 2 MG/ML DISP.SYRIN. IV PRN ×5 (04:34→16:10)
[2019-06-20 07:59] VITALS: BP 151/69
[2019-06-20] MEDS: ACETAMINOPHEN 650 MG SUPP.RECT. PR PRN (08:24)
[2019-06-20 12:00] VITALS: BP 147/82
[2019-06-20 14:21] VITALS: BP 174/98
[2019-06-20] MEDS: hydrALAZINE 20 MG/ML VIAL. IV PRN (14:21)
--- NOTE | 2019-06-20 17:03 | HP ---
ADMIT DATE: 06/20/2019 HISTORY OF PRESENT ILLNESS: The patient was discharged yesterday for inpatient hospice care. He was transferred from [facility] and has been there for 8 days and 2 days prior to transfer to ICU, he spiked his temperature up to 103. He has also had dry, nonproductive cough and chest x-ray showed no acute infiltrate. Because of his possible exposure, he was transferred and tested positive for COVID-19 infection and he was started empirically on antibiotics including Zithromax and Plaquenil; however, he continued to do poorly and therefore, a decision was made to discharge him from acute care and admit him to inpatient hospice care. When I saw him this afternoon, he was extremely tachypneic, clearly markedly congested and he desaturates quickly down to mid 70s without oxygen. He was started on comfort care in the form of morphine and Ativan. PAST MEDICAL HISTORY: Significant for dementia. He has been a [facility] at [facility]. He has anemia of chronic disease requiring transfusion, significant neurocognitive disorder due to Alzheimer's, delusion, depression, vascular, and impulse control disorder. PAST SURGICAL HISTORY: Unremarkable. ALLERGIES: HE IS ALLERGIC TO ATORVASTATIN AND CRESTOR, EXACT CAUSE IS UNCLEAR. SOCIAL HISTORY: Nonsmoker. He does not drink alcohol or use any drugs. FAMILY HISTORY: Unobtainable. MEDICATIONS: He is currently on following medications: He is on morphine sulfate 4 mg IV every hour, lorazepam 2 mg hourly, scopolamine patch, hydralazine 10 mg IV every 4 hours for systolic pressure more than 160, lorazepam 0.5 mg every 6 hourly. He is also on bisacodyl suppositories and acetaminophen 650 mg every 4 hours. PHYSICAL EXAMINATION: GENERAL: When I examined him this afternoon, he was pale, but no jaundice, cyanosis or thyromegaly. No jugular venous distention. No lower limb edema. VITAL SIGNS: His heart rate was 94, blood pressure was 174/98, temperature was 98.6, respiratory rate was 38 and oxygen saturation was 94% on 2 liters of oxygen. HEAD, EYES, EARS, NOSE AND THROAT: Showed normocephalic, atraumatic. NECK: Supple. CARDIAC: Normal first and second heart sounds. No gallop or murmur. CHEST: Showed central trachea, equal bilateral expansion, air entry, vesicular sounds with bilateral scattered rhonchi and crepitation posteriorly. ABDOMEN: Distended, soft, nontender. NEUROLOGIC: He is demented without any obvious lateralizing sign. SUMMARY: This is an 83-year-old male patient with acute bronchitis due to COVID-19 infection, possible early pneumonia, type 2 diabetes mellitus, vascular dementia, hypothyroidism, profound dementia with Alzheimer type. PLAN: To continue with comfort care, mainly morphine, Ativan, scopolamine and oxygen. LAURITA CHRISTIAN MD DR: DESTINEY/skip JOB#: [id number] / [id number]
--- NOTE | 2019-06-26 12:04 | DS ---
DATE OF DISCHARGE: 06/20/2019 HOSPITAL COURSE: The patient is an 83-year-old male patient who was transferred from [facility]. He has been there for 8 days and 2 days prior to transfer to the ICU he spiked his temperature up to 103. He also had dry, nonproductive cough and chest x-ray showed no acute infiltrate; however, because of his possible exposure, he was transferred and tested positive for COVID-19 infection. He was started empirically on antibiotic including Zithromax and Plaquenil; however, he continued to do poorly and therefore, a decision was made to discharge him from acute care and was admitted to inpatient hospice care. He continued to deteriorate. He was clearly markedly congested and desaturates quickly down to mid 70s without oxygen and we did start him on comfort care in the form of morphine and Ativan and around 7:00 p.m., the patient became unresponsive. He has no spontaneous breathing, no palpable pulses or audible heart sounds and was pronounced around 1830 on 06/20/2019. The cause of is: 1. Cardiopulmonary arrest. 2. COVID-19, pneumonia. 3. Acute hypoxic respiratory failure. 4. Profound dementia of Alzheimer type. LAURITA CHRISTIAN MD DR: DESTINEY/skip JOB#: [id number] / [id number]
== END 2019-06-20 19:55 | disposition expired | DRG 177 ==
LOC: ICU 16:30
PROVIDERS: ADMIT Internal Medicine; ATTEND Internal Medicine
DX: U07.1 COVID-19 (principal); J12.89 Other viral pneumonia; J96.01 Acute respiratory failure with hypoxia; J20.8 Acute bronchitis due to other specified organisms; E03.9 Hypothyroidism, unspecified; I46.9 Cardiac arrest, cause unspecified; D63.8 Anemia in other chronic diseases classified elsewhere; E11.9 Type 2 diabetes mellitus without complications; F02.80 Dementia in other diseases classified elsewhere, unspecified severity, without behavioral disturbance, psychotic disturbance, mood disturbance, and anxiety; G30.9 Alzheimer's disease, unspecified; Z51.5 Encounter for palliative care; F32.9 Major depressive disorder, single episode, unspecified; F63.9 Impulse disorder, unspecified; Z79.899 Other long term (current) drug therapy; Z88.8 Allergy status to other drugs, medicaments and biological substances; F22 Delusional disorders
CPT/HCPCS: J0360; J2060; J2270